=== PATIENT | male | born 1970 | race African-American/Black ===

== ENCOUNTER → 2017-12-10 16:55 | Outpatient (CLI) | payer OTHER, SELFPAY ==
--- NOTE | 2017-12-10 17:17 | RAD_ITS ---
STUDY: X-RAY - RIGHT FOOT CLINICAL: Male, 47 years old. Pain TECHNIQUE: 3 view(s) of the foot. COMPARISON: None. FINDINGS: Mild degenerative changes of the first MTP joint. There is also a moderate degree of talar beaking. No acute fractures. The ankle mortise and the subtalar joints are normal RAD/Foot min 3 Views IMPRESSION: Mild talar beaking and mild degenerative changes of the first MTP joint. No fracture Electronically Signed: Margarito Nagel, at 12:38 EDT Tel , Service support ,
--- NOTE | 2017-12-10 17:25 | RAD_ITS ---
STUDY: X-RAY - RIGHT ANKLE REASON FOR EXAM: Male, 47 years old. Pain. Gout. TECHNIQUE: 3 view(s) of the ankle. COMPARISON: None. FINDINGS: Normal visualized distal tibia and fibula. 8mm bone density beyond the tip of the lateral malleolus is consistent with previous avulsion fracture. Normal tibiotalar articulation and ankle mortise. Normal visualized talus and calcaneus. The visualized subtalar, talonavicular, calcaneocuboid and tarsal articulations are normal. There is no demonstrated acute fracture. The soft tissue structures are unremarkable. RAD/Ankle min 3 Views IMPRESSION: No acute fracture or dislocation. Electronically Signed: Eddie Caba MD at 17:08 EDT , Service support ,
[2017-12-10 17:27] LABS: Absolute Lymphocyte Count 2.22 X10^3/ul (0.83-4.51); Absolute Neutrophil Count 5.7 X10^3/uL (2.0-7.7); Basophil# 0.01 X10^3/uL; Basophil% 0.1 % (0-1); Eosinophil# 0.03 X10^3/uL; Eosinophils% 0.4 % (0-5); Hematocrit 39.5 % (40-54); Hemoglobin 13.7 g/dl (13.0-16.5); Lymphocyte # 2.22 X10^3/ul (4.0); Lymphocyte % 26.4 % (19-41); Mean Corp Hgb Conc 34.7 g/gl (32-36); Mean Corpuscular Hgb 31.1 pg (27.0-32.0); Mean Corpuscular Volume 89.8 fL (80-94); Monocyte# 0.46 X10^3/uL; Monocyte% 5.5 % (0-10); Neutrophil # 5.67 X10^3/uL (2.7-7.7); Neutrophil % 67.4 % (47-70); POSITIVE COUNT NO; POSITIVE DIFFERENTIAL NO; POSITIVE MORPHOLOGY NO; Platelet Count 149 K/mm3 (150-450); RBC Distribution Width CV 12.8 % (11.6-14.6); White Blood Count 8.4 K/mm3 (4.4-11.0)
[2017-12-10 18:07] LABS: Erythrocyte Sedimentation Rate 9 mm/hr (0-15)
[2017-12-10 18:12] LABS: AST(SGOT) 15 U/L (15-37); Alanine Aminotransfer ALT/SGPT 37 U/L (16-61); Albumin, Serum 3.9 g/dL (3.2-5.0); Alkaline Phosphatase 59 U/L (45-117); Anion Gap 7 (5-15); BUN 18 mg/dL (7-18); BUN/Creat Ratio 16.7 RATIO (10-20); CRP 5.34 mg/L (0.0-3.0); Calcium,Total 8.7 mg/dL (8.5-10.1); Chloride 115 mmol/L (98-107); Creatinine, Serum 1.08 mg/dL (0.70-1.30); EST Glomerular Filtration Rate 78 mL/min (>60); Est Glom Filt Rate - Afr Amer 94 mL/min (>60); Globulin 3.8 g/dL (2.2-4.2); Glucose 99 mg/dL (74-106); Potassium 3.9 mmol/L (3.5-5.1); Protein, Total 7.7 g/dL (6.4-8.2); Sodium Level 148 mmol/L (136-145); Uric Acid 9.7 mg/dL (3.5-7.2)
== END ==
PROVIDERS: Family Provider Family Medicine; PCP Family Medicine; Visit Provider Podiatrist
DX: M10.9 Gout, unspecified (principal)
CPT/HCPCS: 36415; 73610; 73630; 80053; 84550; 85025; 85652; 86140

== ENCOUNTER → 2018-05-18 10:12 | Outpatient (CLI) | payer OTHER, SELFPAY ==
--- NOTE | 2018-05-18 10:19 | RAD_ITS ---
STUDY: X-RAY - PELVIS REASON FOR EXAM: Male, 47 years old. Increasing bilateral hip stiffness, history of gout TECHNIQUE: One view of the pelvis was obtained. COMPARISON: 12/12/2015 FINDINGS: There is a non-specific bowel gas pattern. Normal visualized soft tissue structures. Normal bilateral iliac wings, sacroiliac joints and visualized sacrum. Deformity of the left parasymphyseal pubis compatible with an old healed fracture. Normal pubic symphysis. Normal ischial tuberosities. Severe joint space narrowing (circumferential) with subchondral cyst formation identified in the femoral head and acetabulum. Overhanging margins are identified with overall similar appearance since prior study. Severe joint space narrowing which is worse as compared to the prior study particularly along the superior margin. Overhanging margins identified with multiple subchondral cysts of the acetabulum and femoral head, the latter of which are larger since the prior study. Increasing osseous density adjacent to the hip joint project over the lateral margin, that likely represents acetabular osteophyte. RAD/Pelvis 1 or 2 Views IMPRESSION: 1. Severe asymmetric bilateral hip arthrosis. Progressive appearance on the left side since prior study of 2015. Electronically Signed: Michael Cantu MD at 7:21 EST , Service support ,
[2018-05-18 12:19] LABS: Erythrocyte Sedimentation Rate 3 mm/hr (0-15)
[2018-05-18 12:28] LABS: Absolute Lymphocyte Count 2.28 X10^3/ul (0.83-4.51); Absolute Neutrophil Count 4.1 X10^3/uL (2.0-7.7); Basophil# 0.02 X10^3/uL; Basophil% 0.3 % (0-1); Eosinophil# 0.05 X10^3/uL; Eosinophils% 0.7 % (0-5); Hematocrit 41.8 % (40-54); Hemoglobin 14.3 g/dl (13.0-16.5); Lymphocyte # 2.28 X10^3/ul (4.0); Lymphocyte % 32.9 % (19-41); Mean Corp Hgb Conc 34.2 g/gl (32-36); Mean Corpuscular Volume 90.5 fL (80-94); Monocyte% 5.8 % (0-10); Neutrophil # 4.14 X10^3/uL (2.7-7.7); Neutrophil % 59.9 % (47-70); Platelet Count 128 K/mm3 (150-450); RBC Distribution Width CV 12.7 % (11.6-14.6); RBC Distribution Width SD 41.5 fl (35.1-43.9); Red Blood Count 4.62 M/mm3 (4.6-6.2); White Blood Count 6.9 K/mm3 (4.4-11.0)
[2018-05-18 12:35] LABS: ALB/GLOB Ratio 0.9 RATIO (0.9-2.4); AST(SGOT) 20 U/L (15-37); Alanine Aminotransfer ALT/SGPT 39 U/L (16-61); Albumin, Serum 3.7 g/dL (3.2-5.0); Alkaline Phosphatase 60 U/L (45-117); Anion Gap 8 (5-15); BUN 17 mg/dL (7-18); BUN/Creat Ratio 15.9 RATIO (10-20); CRP 5.79 mg/L (0.0-3.0); Calcium,Total 8.6 mg/dL (8.5-10.1); Chloride 108 mmol/L (98-107); Creatinine, Serum 1.07 mg/dL (0.70-1.30); EST Glomerular Filtration Rate 78 mL/min (>60); Est Glom Filt Rate - Afr Amer 95 mL/min (>60); Globulin 3.9 g/dL (2.2-4.2); Glucose 99 mg/dL (74-106); Potassium 4.3 mmol/L (3.5-5.1); Protein, Total 7.6 g/dL (6.4-8.2); Rheumatoid Factor < 10.0 IU/mL (<15); Sodium Level 142 mmol/L (136-145)
[2018-05-18 12:37] LABS: POSITIVE COUNT NO; POSITIVE DIFFERENTIAL NO; POSITIVE MORPHOLOGY NO
[2018-05-20 13:15] LABS: ANTINUCLEAR ANTIBODIES DIRECT Negative (Negative)
[2018-05-24 16:54] LABS: CCP IgG Antibodies 9 units (0-19); HEPATITIS B SURFACE AG Negative (Negative); HLA B27 Negative (.); Hep B Surface Antibodies Non Reactive (.); Hep C Antibodies <0.1 s/co ratio (0.0-0.9)
== END ==
PROVIDERS: Family Provider Family Medicine; PCP Family Medicine; Referring Provider Internal Medicine Rheumatology; Visit Provider Internal Medicine Rheumatology
DX: M06.4 Inflammatory polyarthropathy (principal); M16.0 Bilateral primary osteoarthritis of hip
CPT/HCPCS: 36415; 72170; 80053; 81374; 85025; 85652; 86038; 86140; 86200; 86431; 86706; 86803; 87340

== ENCOUNTER → 2018-08-10 15:46 | Outpatient (CLI) | payer OTHER, SELFPAY ==
[2016-03-30 15:45] VITALS: BMI 30.7
[2018-08-10 17:40] LABS: Absolute Lymphocyte Count 3.14 X10^3/ul (0.83-4.51); Basophil# 0.02 X10^3/uL; Basophil% 0.2 % (0-1); Eosinophil# 0.03 X10^3/uL; Eosinophils% 0.3 % (0-5); Hematocrit 41.5 % (40-54); Hemoglobin 14.1 g/dl (13.0-16.5); Lymphocyte # 3.14 X10^3/ul (4.0); Lymphocyte % 36.1 % (19-41); Mean Corpuscular Hgb 30.7 pg (27.0-32.0); Mean Corpuscular Volume 90.2 fL (80-94); Mean Platelet Vol. 11.6 fl (6.2-12.0); Monocyte# 0.47 X10^3/uL; Monocyte% 5.4 % (0-10); Neutrophil % 57.5 % (47-70); Platelet Count 134 K/mm3 (150-450); RBC Distribution Width CV 13.2 % (11.6-14.6); RBC Distribution Width SD 42.9 fl (35.1-43.9); White Blood Count 8.7 K/mm3 (4.4-11.0)
[2018-08-10 17:43] LABS: POSITIVE COUNT NO; POSITIVE DIFFERENTIAL NO; POSITIVE MORPHOLOGY NO
[2018-08-10 17:53] LABS: ALB/GLOB Ratio 1.1 RATIO (0.9-2.4); AST(SGOT) 21 U/L (15-37); Alanine Aminotransfer ALT/SGPT 32 U/L (16-61); Alkaline Phosphatase 67 U/L (45-117); Anion Gap 10 (5-15); BUN 10 mg/dL (7-18); BUN/Creat Ratio 10.1 RATIO (10-20); Calcium,Total 8.4 mg/dL (8.5-10.1); Chloride 107 mmol/L (98-107); Creatinine, Serum 0.99 mg/dL (0.70-1.30); EST Glomerular Filtration Rate 86 mL/min (>60); Est Glom Filt Rate - Afr Amer 104 mL/min (>60); Globulin 3.8 g/dL (2.2-4.2); Glucose 95 mg/dL (74-106); Potassium 3.6 mmol/L (3.5-5.1); Protein, Total 7.8 g/dL (6.4-8.2); Sodium Level 143 mmol/L (136-145)
== END ==
PROVIDERS: Family Provider Family Medicine; PCP Family Medicine; Referring Provider Internal Medicine Rheumatology; Visit Provider Internal Medicine Rheumatology
DX: M06.4 Inflammatory polyarthropathy (principal)
CPT/HCPCS: 36415; 80053; 85025

== ENCOUNTER → 2018-10-07 15:42 | Outpatient (CLI) | payer OTHER, SELFPAY ==
[2016-03-30 15:45] VITALS: BMI 30.7
[2018-10-07 17:34] LABS: Absolute Lymphocyte Count 2.73 X10^3/ul (0.83-4.51); Absolute Neutrophil Count 5.9 X10^3/uL (2.0-7.7); Basophil# 0.01 X10^3/uL; Basophil% 0.1 % (0-1); Eosinophil# 0.05 X10^3/uL; Eosinophils% 0.5 % (0-5); Hemoglobin 13.3 g/dl (13.0-16.5); Lymphocyte # 2.73 X10^3/ul (4.0); Lymphocyte % 29.8 % (19-41); Mean Corp Hgb Conc 34.1 g/gl (32-36); Mean Corpuscular Hgb 30.5 pg (27.0-32.0); Mean Corpuscular Volume 89.4 fL (80-94); Mean Platelet Vol. 12.2 fl (6.2-12.0); Monocyte# 0.44 X10^3/uL; Monocyte% 4.8 % (0-10); Neutrophil # 5.91 X10^3/uL (2.7-7.7); Neutrophil % 64.5 % (47-70); Platelet Count 147 K/mm3 (150-450); RBC Distribution Width CV 13.7 % (11.6-14.6); RBC Distribution Width SD 43.7 fl (35.1-43.9); Red Blood Count 4.36 M/mm3 (4.6-6.2); White Blood Count 9.2 K/mm3 (4.4-11.0)
[2018-10-07 17:35] LABS: POSITIVE COUNT NO; POSITIVE DIFFERENTIAL NO; POSITIVE MORPHOLOGY NO
[2018-10-07 17:47] LABS: ALB/GLOB Ratio 1.1 RATIO (0.9-2.4); AST(SGOT) 21 U/L (15-37); Alanine Aminotransfer ALT/SGPT 34 U/L (16-61); Albumin, Serum 3.9 g/dL (3.2-5.0); Alkaline Phosphatase 61 U/L (45-117); Anion Gap 6 (5-15); BUN 14 mg/dL (7-18); BUN/Creat Ratio 13.9 RATIO (10-20); Calcium,Total 8.6 mg/dL (8.5-10.1); Chloride 111 mmol/L (98-107); Creatinine, Serum 1.01 mg/dL (0.70-1.30); EST Glomerular Filtration Rate 83 mL/min (>60); Est Glom Filt Rate - Afr Amer 101 mL/min (>60); Globulin 3.6 g/dL (2.2-4.2); Glucose 91 mg/dL (74-106); Potassium 3.9 mmol/L (3.5-5.1); Protein, Total 7.5 g/dL (6.4-8.2); Sodium Level 144 mmol/L (136-145)
== END ==
PROVIDERS: Family Provider Family Medicine; PCP Family Medicine; Referring Provider Internal Medicine Rheumatology; Visit Provider Internal Medicine Rheumatology
DX: M06.4 Inflammatory polyarthropathy (principal); M16.0 Bilateral primary osteoarthritis of hip; Z79.899 Other long term (current) drug therapy
CPT/HCPCS: 36415; 80053; 85025

== ENCOUNTER → 2018-11-23 14:00 | Outpatient (CLI) | payer OTHER, SELFPAY ==
[2016-03-30 15:45] VITALS: BMI 30.7
[2018-11-23 16:03] LABS: Absolute Neutrophil Count 6.5 X10^3/uL (2.0-7.7); Basophil# 0.01 X10^3/uL; Basophil% 0.1 % (0-1); Eosinophil# 0.05 X10^3/uL; Eosinophils% 0.5 % (0-5); Hematocrit 41.1 % (40-54); Hemoglobin 14.1 g/dl (13.0-16.5); Lymphocyte % 25.2 % (19-41); Mean Corp Hgb Conc 34.3 g/gl (32-36); Mean Corpuscular Hgb 30.7 pg (27.0-32.0); Mean Corpuscular Volume 89.3 fL (80-94); Mean Platelet Vol. 12.3 fl (6.2-12.0); Monocyte% 5.3 % (0-10); Neutrophil # 6.53 X10^3/uL (2.7-7.7); Neutrophil % 68.6 % (47-70); Platelet Count 112 K/mm3 (150-450); White Blood Count 9.5 K/mm3 (4.4-11.0)
[2018-11-23 16:07] LABS: POSITIVE COUNT NO; POSITIVE DIFFERENTIAL NO; POSITIVE MORPHOLOGY NO
[2018-11-23 16:18] LABS: ALB/GLOB Ratio 0.9 RATIO (0.9-2.4); AST(SGOT) 19 U/L (15-37); Alanine Aminotransfer ALT/SGPT 32 U/L (16-61); Albumin, Serum 3.6 g/dL (3.2-5.0); Alkaline Phosphatase 57 U/L (45-117); Anion Gap 9 (5-15); BUN 16 mg/dL (7-18); BUN/Creat Ratio 15.5 RATIO (10-20); Calcium,Total 9.2 mg/dL (8.5-10.1); Chloride 110 mmol/L (98-107); Creatinine, Serum 1.03 mg/dL (0.70-1.30); EST Glomerular Filtration Rate 82 mL/min (>60); Est Glom Filt Rate - Afr Amer 99 mL/min (>60); Globulin 3.9 g/dL (2.2-4.2); Glucose 95 mg/dL (74-106); Potassium 3.6 mmol/L (3.5-5.1); Protein, Total 7.5 g/dL (6.4-8.2); Sodium Level 145 mmol/L (136-145)
== END ==
PROVIDERS: Family Provider Family Medicine; PCP Family Medicine; Referring Provider Internal Medicine Rheumatology; Visit Provider Internal Medicine Rheumatology
DX: M06.4 Inflammatory polyarthropathy (principal); M16.0 Bilateral primary osteoarthritis of hip; Z79.899 Other long term (current) drug therapy
CPT/HCPCS: 36415; 80053; 85025

== ENCOUNTER → 2019-08-16 09:48 | Outpatient (CLI) | payer MEDICAID, SELFPAY ==
[2019-08-16 09:44] VITALS: BMI 30.7
--- NOTE | 2019-08-16 09:49 | RAD_ITS ---
HISTORY: SEVERE BILAT HIP PAIN ADDITIONAL HISTORY: None provided. TECHNIQUE: AP pelvis. AP and lateral views of the right hip. AP and lateral views of the left hip. Number of images including paperwork: 5 COMPARISON: 05/18/2018 FINDINGS: BONES: No acute fracture. JOINTS: No subluxation. Severe degenerative changes of the hips with joint space narrowing, subchondral sclerosis, subchondral cystic changes and osteophyte formation, minimally changed compared to previous. Degenerative changes of the visualized spine and symphysis pubis. SOFT TISSUES: No distinct foreign body. RAD/Hips B/L min 2 views w/ Pelvis IMPRESSION: No acute osseous abnormality. Severe degenerative changes of the hips. at 0540 Reported and signed by: Nadia Najera MD Electronically Signed: Nadia Najera MD at 5:39 EST Tel , Service support ,
== END ==
PROVIDERS: PCP Family Medicine; Referring Provider Orthopaedic Surgery; Visit Provider Orthopaedic Surgery
DX: M16.0 Bilateral primary osteoarthritis of hip (principal)
CPT/HCPCS: 73521

== ENCOUNTER → 2019-08-23 13:54 | Outpatient (CLI) | payer MEDICAID, SELFPAY ==
[2019-08-16 09:44] VITALS: BMI 30.7
--- NOTE | 2019-08-23 13:55 | CT_ITS ---
STUDY: CT BILATERAL HIPS REASON FOR EXAM: Left hip pain, surgical planning. TECHNIQUE: Transaxial CT imaging of the pelvis/hips was performed. Sagittal and coronal images were reconstructed. Individualized dose optimization techniques were used for this CT. COMPARISON: None. FINDINGS: There is severe joint space narrowing, marginal osteophytes and subchondral cysts of the femoral heads and acetabula bilaterally (coronal reconstructions 64-81). There is chronic healed fracture involving the anterior aspect of the left parasymphyseal bone (coronal reconstructions 57-61). Normal iliac wings, sacroiliac joints and sacrum. There is mild vascular calcification. CT/Extremity Lower without Contra IMPRESSION: Advanced bilateral hip arthrosis. Electronically Signed: Jean Pierre Montoya MD at 15:30 EST Tel , Service support ,
== END ==
PROVIDERS: PCP Nurse Practitioner Primary Care; Referring Provider Orthopaedic Surgery; Visit Provider Orthopaedic Surgery
DX: M16.0 Bilateral primary osteoarthritis of hip (principal)
CPT/HCPCS: 73700

== ENCOUNTER → 2019-08-23 15:00 | Outpatient (CLI) | payer MEDICAID, SELFPAY ==
[2019-08-16 09:44] VITALS: BMI 30.7
[2019-08-23 15:03] VITALS: BP 144/89; PULSE 61; RESP 17; TEMP 36.6; O2SAT 96; BMI 31.6
--- NOTE | 2019-08-23 15:24 | SDCEKG_ITS ---
Test Reason : Blood Pressure : / mmHG Vent. Rate : 051 BPM Atrial Rate : 051 BPM P-R Int : 154 ms QRS Dur : 108 ms QT Int : 446 ms P-R-T Axes : 023 -29 -19 degrees QTc Int : 411 ms Sinus bradycardia Nonspecific T wave abnormality Abnormal ECG Confirmed by JENAE MALDONADO, SUZAN ([id number]), avid editor CARL SORENSON ([id number]) on 08/28/2019 8:38:08 AM Referred By: Toni Quinn Confirmed By:JENNIFER EMANUEL MD
[2019-08-23 15:54] LABS: Hematocrit 38.9 % (40-54); Hemoglobin 13.3 g/dL (13.0-16.5); Mean Corp Hgb Conc 34.2 g/dL (32-36); Mean Corpuscular Hgb 30.7 pg (27.0-32.0); Mean Corpuscular Volume 89.8 fL (80-94); Mean Platelet Vol. 10.8 fl (6.2-12.0); Platelet Count 266 K/mm3 (150-450); RBC Distribution Width CV 12.5 % (11.6-14.6); RBC Distribution Width SD 41.6 fl (35.1-43.9); Red Blood Count 4.33 M/mm3 (4.6-6.2); White Blood Count 10.3 K/mm3 (4.4-11.0)
== END ==
PROVIDERS: Anesthesiology; PCP Nurse Practitioner Primary Care; Referring Provider Orthopaedic Surgery; Visit Provider Orthopaedic Surgery
DX: Z01.818 Encounter for other preprocedural examination (principal)
CPT/HCPCS: 85027; 87081; 93005

== ENCOUNTER 2020-05-14 06:37 | Day surgery (SDC) | payer MEDICAID, SELFPAY ==
[2020-04-22 08:15] VITALS: BMI 34.8
[2020-05-01 12:44] LABS: Absolute Lymphocyte Count 2.59 X10^3/uL (0.83-4.51); Absolute Neutrophil Count 4.6 X10^3/uL (2.0-7.7); Basophil# 0.04 X10^3/uL; Basophil% 0.5 % (0-1); Eosinophil# 0.03 X10^3/uL; Eosinophils% 0.4 % (0-5); Hematocrit 42.3 % (40-54); Hemoglobin 14.3 g/dL (13.0-16.5); Lymphocyte # 2.59 X10^3/ul (4.0); Lymphocyte % 33.2 % (19-41); Mean Corp Hgb Conc 33.8 g/dL (32-36); Mean Corpuscular Hgb 31.3 pg (27.0-32.0); Mean Corpuscular Volume 92.6 fL (80-94); Mean Platelet Vol. 11.7 fl (6.2-12.0); Monocyte# 0.45 X10^3/uL; Monocyte% 5.8 % (0-10); NRBC Flagged by Analyzer 0 % (0-5); Neutrophil # 4.63 X10^3/uL (2.7-7.7); Neutrophil % 59.5 % (47-70); Platelet Count 158 K/mm3 (150-450); RBC Distribution Width SD 43.8 fl (35.1-43.9); Red Blood Count 4.57 M/mm3 (4.6-6.2); White Blood Count 7.8 K/mm3 (4.4-11.0)
[2020-05-01 13:04] LABS: Anion Gap 6 (5-15); BUN 15 mg/dL (7-18); BUN/Creat Ratio 12.7 RATIO (10-20); Chloride 109 mmol/L (98-107); Creatinine, Serum 1.18 mg/dL (0.70-1.30); EST Glomerular Filtration Rate 69 mL/min (>60); Est Glom Filt Rate - Afr Amer 84 mL/min (>60); Glucose 93 mg/dL (74-106); Potassium 4.2 mmol/L (3.5-5.1); Sodium Level 142 mmol/L (136-145)
[2020-05-01 13:18] LABS: Magnesium 2.1 mg/dL (1.6-2.6)
[2020-05-01 13:30] LABS: Partial Thromboplast Time 26.6 Seconds (24.1-36.2)
[2020-05-14] VITALS (8 sets, daily range): BP systolic 126–159; BP diastolic 79–110; PULSE 62–81; RESP 16–18; TEMP 36.3–37.1; O2SAT 94–100; BMI 33.6
--- NOTE | 2020-05-14 05:40 | HP_ITS ---
Intake Vital Signs 04/22/20 Height 5 ft 6 in 04/22/20 Weight: 216 lb Intake Visit Reasons: LEFT HIP Is patient in pain?: Yes Allergies No Known Allergies Allergy (Verified 04/22/20 08:16) Medications Lisinopril 20 mg PO DAILY 08/23/19 [History Confirmed 04/22/20] allopurinol 100 mg tablet 100 mg PO DAILY 09/11/19 [History Confirmed 04/22/20] colchicine 0.6 mg capsule cap PO 04/22/20 [History Confirmed 04/22/20] PFSH Social History (Updated 04/22/20 @ 09:[address] Toni Quinn DO) Smoking Status: Current every day smoker HPI LEFT HIP: Surgical H&P: Yes Details: Parts of this documentation were recorded by a scribe, this documentation accurately reflects the service provided and the decisions made by me, Dr. Toni Quinn DO 04/22/20 0803. RAMILA SNYDER is a 49 year old M here today for continued left hip pain. Patient states that his pain is worsening. He has increased pain with ambulation. Patient has to use a cane to ambulate. He has increased pain with getting up and sitting in a chair. Patient notes that he has numbness into his thighs after prolonged sitting. Patient has decreased hip range of motion. Patient notes that his gout is under control. He just had blood work which showed his lab work is decreasing. He continues to take his gout meds daily. Patient takes aleve for his back every few days. ROS [facility] Reports joint pain, Reports limited joint movement, Reports stiffness Skin/Breast Reports system reviewed and no additional complaints, except as docu Neuro Yes system reviewed and no additional complaints, except as docu Ortho Exam General General: Yes no acute distress Neurologic: Yes alert, Yes oriented x3 Psychologic: Yes reasonable and appropriate Right Hip Skin: Yes CDI, No Ecchymosis, No soft tissue swelling, No Erythema Special Tests: Yes pain with log roll, Yes RROM flexion pain HIP: 4/5 hip flexion, 5/5 knee flexion, 5/5 ankle PF/DF Very limited hip range of motion bilaterally Left Hip Skin/Wound: Yes CDI, No Ecchymosis, No soft tissue swelling, No Erythema Hip: Absent eccymosis, soft tissue swelling or erythema HIP: 4/5 hip flexion, 5/5 hip flexion, 5.5 ankle PF and DF Supplemental Info 08/16/2019 x-ray bilateral hips markedly advanced arthrosis bilaterally consistent with possibility of prior avascular necrosis with deformity to femoral heads large bone spurs of acetabulum Assessment & Plan Problems 1. Primary osteoarthritis of right hip M16.11 2. 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 Explained his numbness in his quad if from his lumbar spine and he wont have relief with the numbness from a total hip replacement. Spoke with him about a total hip replacement. He might need some augmentation due to bony loss and cysts shown on the CT scan. Patient wanted to proceed with his right total hip replacement. He will need to wait approximately 3 months before he can have his left ANGEL completed. Spoke with him about hip precautions following surgery. Reviewed the pre-operative plans with the patient. Risks and benefits of the procedure were fully explained, including but not limited to infection, neurovascular injury, continued pain, stiffness, need for further surgery, re-injury, DVT, PE, general risks of anesthesia, and loss of limb or life. The patient understands all the risks and does wish to proceed with written consent. Follow up for his 2 week post op appt or sooner if pain, swelling, numbness or associated symptoms, or concerns develop. All questions answered. Patient in agreement of plan. 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 delaying the surgery/procedure. It is not possible to know either the risk of delaying the surgery or procedure or chance of getting an infection with perfect accuracy, but a joint decision was made between the patient and the surgeon/proceduralist ?to proceed at this time with the scheduled surgery/procedure as indicated on the consent form.
[2020-05-14] MEDS: Lactated Ringers 1,000 ML 125 ML IV (07:00)
--- NOTE | 2020-05-14 07:17 | HP.PCM_ITS ---
History and Physical Date of Admission: 05/14/20 Intake Vital Signs 04/22/20 Height 5 ft 6 in 04/22/20 Weight: 216 lb Intake Visit Reasons: LEFT HIP Is patient in pain?: Yes Allergies No Known Allergies Allergy (Verified 04/22/20 08:16) Medications Lisinopril 20 mg PO DAILY 08/23/19 [History Confirmed 04/22/20] allopurinol 100 mg tablet 100 mg PO DAILY 09/11/19 [History Confirmed 04/22/20] colchicine 0.6 mg capsule cap PO 04/22/20 [History Confirmed 04/22/20] [facility] Social History (Updated 04/22/20 @ 09:[address] Toni Quinn DO) Smoking Status: Current every day smoker HPI LEFT HIP: Surgical H&P: Yes Details: Parts of this documentation were recorded by a scribe, this documentation accurately reflects the service provided and the decisions made by me, Dr. Toni Quinn DO 04/22/20 0803. RAMILA SNYDER is a 49 year old M here today for continued left hip pain. Patient states that his pain is worsening. He has increased pain with ambulation. Patient has to use a cane to ambulate. He has increased pain with getting up and sitting in a chair. Patient notes that he has numbness into his thighs after prolonged sitting. Patient has decreased hip range of motion. Patient notes that his gout is under control. He just had blood work which showed his lab work is decreasing. He continues to take his gout meds daily. Patient takes aleve for his back every few days. ROS [facility] Reports joint pain, Reports limited joint movement, Reports stiffness Skin/Breast Reports system reviewed and no additional complaints, except as docu Neuro Yes system reviewed and no additional complaints, except as docu Ortho Exam General General: Yes no acute distress Neurologic: Yes alert, Yes oriented x3 Psychologic: Yes reasonable and appropriate Right Hip Skin: Yes CDI, No Ecchymosis, No soft tissue swelling, No Erythema Special Tests: Yes pain with log roll, Yes RROM flexion pain HIP: 4/5 hip flexion, 5/5 knee flexion, 5/5 ankle PF/DF Very limited hip range of motion bilaterally Left Hip Skin/Wound: Yes CDI, No Ecchymosis, No soft tissue swelling, No Erythema Hip: Absent eccymosis, soft tissue swelling or erythema HIP: 4/5 hip flexion, 5/5 hip flexion, 5.5 ankle PF and DF Supplemental Info 08/16/2019 x-ray bilateral hips markedly advanced arthrosis bilaterally consistent with possibility of prior avascular necrosis with deformity to femoral heads large bone spurs of acetabulum Assessment & Plan Problems 1. Primary osteoarthritis of right hip M16.11 2. 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 Explained his numbness in his quad if from his lumbar spine and he wont have relief with the numbness from a total hip replacement. Spoke with him about a total hip replacement. He might need some augmentation due to bony loss and cysts shown on the CT scan. Patient wanted to proceed with his right total hip replacement. He will need to wait approximately 3 months before he can have his left ANGEL completed. Spoke with him about hip precautions following surgery. Reviewed the pre-operative plans with the patient. Risks and benefits of the procedure were fully explained, including but not limited to infection, neurovascular injury, continued pain, stiffness, need for further surgery, re-injury, DVT, PE, general risks of anesthesia, and loss of limb or life. The patient understands all the risks and does wish to proceed with written consent. Follow up for his 2 week post op appt or sooner if pain, swelling, numbness or associated symptoms, or concerns develop. All questions answered. Patient in agreement of plan. 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 delaying the surgery/procedure. It is not possible to know either the risk of delaying the surgery or procedure or chance of getting an infection with perfect accuracy, but a joint decision was made between the patient and the surgeon/proceduralist ?to proceed at this time with the scheduled surge ry/procedure as indicated on the consent form. I have re-examined the patient. There are no clinical changes since date of exam
[2020-05-14 07:40] LABS: Bedside Glucose 102 mg/dL (70-110)
[2020-05-14] MEDS: Acetaminophen 500 MG Tablet 1000 MG PO (07:58)
[2020-05-14] MEDS: Celecoxib 200 MG Capsule 400 MG PO (07:58)
[2020-05-14] MEDS: Gabapentin 600 MG Tablet PO (07:59)
[2020-05-14] MEDS: Scopolamine 1mg/72hr Patch 1 PATCH TRANSDERM. (07:59)
[2020-05-14] MEDS: Lactated Ringers 1,000 ML 999 ML IV (08:00)
[2020-05-14] MEDS: Cefazolin 2 GM in 0.9% Normal Saline 100 ML IV (10:36)
[2020-05-14] MEDS: dexAMETHasone 10 MG/ML Vial IV (10:52)
--- NOTE | 2020-05-14 13:05 | RAD_ITS ---
STUDY: X-RAY - PELVIS AND RIGHT HIP REASON FOR EXAM: Male, 49 years old. Postop right hip. TECHNIQUE: 2 views of the pelvis and hip. COMPARISON: Bilateral hips, 08/16/2019. FINDINGS: There is a non-specific bowel gas pattern. Normal visualized soft tissue structures. Normal bilateral iliac wings, sacroiliac joints and visualized sacrum. Normal bilateral superior and inferior pubic rami. Normal pubic symphysis. Normal bilateral ischial tuberosities. Is continued marked degenerative changes of the left hip. There is a right total hip arthroplasty. Prosthetic components are intact and articulate normally with each other. There is no fracture or loosening from the underlying bone. There is air in the surrounding soft tissues with lateral skin clips. RAD/Hip Min 2 Views (Portable) IMPRESSION: Status post right total hip arthroplasty. The remainder of the findings are stable when compared to 08/16/2019. Electronically Signed: Cristian Salazar DO at 16:50 EST Tel [phone], Service support ,
--- NOTE | 2020-05-14 13:13 | PCM.DC.ORTHO ---
Discharge Diet: No Restrictions, - - Low purine gout diet avoid red meats if questions about this please call the office for follow-up information Discharge Activity: Return to Normal Activity Keep extremity elevated above heart level: Operative Extremity Call your doctor if you observe: Shortness of breath, Chest pain Additional Instructions: Do not shower 72hrs. Begin daily showering warm water antibacterial soap postop day #3( 72hrs Post-operatively) and then daily. Leave the dressing on for 72 hours postoperatively then may remove prior to first shower and change dressing daily after this until no drainage for 2 consecutive days then may leave open to air. Follow hip precautions that were reviewed in hospital. Wear compression stockings, may remove at night. Start physical therapy as directed in hospital. Follow prescriptions instructions do not take any other pain medication or differ dosing without consulting your physician. Do not take oral NSAIDs until blood thinner has been completed , then may begin the day after completion if needed . Call Dr. Quinn's office with any concerns. Allergies/Adverse Reactions: Allergies No Known Allergies Allergy (Verified 05/14/20 07:11) Medications to take at Discharge allopurinol 100 mg tablet 300 mg PO BID 09/11/19 mupirocin 2 % topical ointment 1 applic TOPICAL BID #22 g 05/06/20 Acetaminophen [Tylenol Extra Strength] 1,000 mg PO Q6H PRN #100 tab 05/14/20 Apixaban [Eliquis] 2.5 mg PO BID #42 tab 05/14/20 Cephalexin [Keflex] 1,000 mg PO Q8 #4 cap 05/14/20 Diltiazem HCl [Cartia Xt] 120 mg PO 05/14/20 Ondansetron HCl [Zofran] 4 mg PO Q6H PRN PRN 5 Days #20 tab 05/14/20 Oxycodone [Oxyir] 5 mg PO Q4H PRN PRN #60 tablet 05/14/20 The following prescriptions were given: Apixaban [Eliquis] 2.5 mg PO BID #42 tab Transmission Status: Pending to [facility] Cephalexin [Keflex] 1,000 mg PO Q8 #4 cap Transmission Status: Pending to [facility] Oxycodone [Oxyir] 5 mg PO Q4H PRN PRN #60 tablet PRN Reason: Pain Score 6-10 Transmission Status: Sent to [facility] Acetaminophen [Tylenol Extra Strength] 1,000 mg PO Q6H PRN #100 tab Transmission Status: Pending to [facility] Ondansetron HCl [Zofran] 4 mg PO Q6H PRN PRN 5 Days #20 tab PRN Reason: Nausea Transmission Status: Pending to [facility] Primary Care Physician: Yunior Higgins BAIT MAN, BA[employer] MAN-C [Primary Care Provider] - Test Results: Test results from this visit will be discussed in further detail at your follow-up appointment, if applicable. Please Follow Up With: Toni Quinn DO - 2 weeks
--- NOTE | 2020-05-14 13:21 | PCM.OPRPT ---
Report of Operation Date of Procedure: 05/14/20 Description of Surgical Findings:: Preoperative diagnosis: Right hip DJD Postoperative diagnosis: Same Procedure: CT-guided Makoplasty assisted right total hip arthroplasty Implants: [place] Accolade II stem size 2 [127] degree neck angle [-2.5 neck length 56 mm Trident II acetabular shell with 20 mm cancellous screw [36]mm [ceramic] head Anesthesia: [Spinal] EBL: 200 cc Complications: None Condition: Stable to PACU Indication for procedure: This is a 49-year-old male with advanced bilateral hip arthrosis and gout who has had long-standing arthrosis of the hip who has failed conservative treatment and wished to undergo total hip arthroplasty. We did discuss operative versus nonoperative intervention including risks of bleeding, infection , nerve artery tissue damage, need for further surgery, fracture, leg length discrepancy dislocation blood clot and need for postoperative physical therapy and postoperative expectations. An informed consent was signed. Procedure: Patient was met in the preoperative holding area once again the operative extremity was identified by both patient and physician and was marked. Patient was met by anesthesia [spinal anesthesia was placed]. patient was then positioned in the lateral decubitus position on a well-padded pegboard with an axillary roll. All bony prominences were checked and padded. The patient was prepped and draped in the usual sterile fashion. A timeout was called to ensure the proper patient procedure and extremity were being contemplated. Anatomic landmarks were palpated and marked for a standard posterior lateral approach. Prior to this the ASIS was palpated and 3 fingerbreadths proximal to this 3 pins were placed at a 45 degree angle into the iliac crest with good purchase, stab incisions were made with a 15 blade into the skin prior to placement. The Makoplasty array was then secured. A 10 blade scalpel was used to make a posterior incision through the skin and subcutaneous tissue. retractors were used and electrocautery was used to maintain meticulous hemostasis and dissect full-thickness flaps until the gluteal fascia was reached. The gluteal fascia was incised in line with the gluteal fibers. The bursal tissue was then freed from the underside and a Charnley retractor was placed. The femoral trochanteric checkpoint was placed and leg length was assessed using the trochanteric checkpoint and an EKG lead that was placed on the knee prior to prepping the leg .the fat pad was then elevated off of the external rotators with electrocautery and the external rotators were dissected off of the greater trochanter including the piriformis and were tagged with #1 Ethibond for later repair. The joint capsule opened with posterior trapdoor technique. The hip was surgically dislocated. The measurement on the preoperative CT from the top of the lesser trochanter to the femoral neck cut was marked Hohmann was placed around the lesser trochanter. A neck cutting guide was used to nakul the neck with a Bovie and an oscillating saw was used complete the femoral neck cut. The femoral head was then removed and sized. We then turned our attention to the acetabulum. A Bovie was used to make a perforation in the anterior joint capsule and a Purdy retractor was placed this was repeated in the 6 o'clock position and a wide zechariah was placed there. With a long handled knife the labral and pulvinar tissue were removed. We then registered the acetabulum with the pointing array and confirmed our landmarks. Once the socket was thoroughly prepared and labral tissue pulmonary was removed we single reamed with the robotic arm. There was acetabular cyst that were filled with bone marrow from the femoral head we then used the robotic arm to position the acetabular implant and impacted it into place under robotic guidance. [We then proceeded to place a posterior superior screw by drilling first measuring and inserting the screw]. We then inserted a trial liner. And turned our attention back to the femur at this point a femoral elevator was used. As well as a pointed wide Hohmann around the lesser trochanter and a Hohmann to help retract the gluteus medius. A box chisel was used to remove excess lateral neck followed by a canal finder and a lateralizing reamer. This was followed by sequential broaches. Attention was made of the version within the canal based on preoperative templating. Once the final broach was seated we then trialed reduced the hip it was determined that a [127] degree neck angle with a -2.5 neck length was the appropriate size. We then checked stability with shuck testing as well as flexion and internal rotation. then proceeded with hip extension and checked leg lengths at the knees and heels as well as with the trochanteric checkpoint and knee EKG lead. At this point trials were removed. A liner was inserted to the cup. The femoral stem was inserted. We re-trialed and then proceeded to impact the femoral head onto the Aniket taper. We then surgically reduce the hip check stability again and leg lengths and were satisfied. Betadine rinse was allowed to sit for 5 minutes while everyone changed their gloves. Thorough irrigation was performed. Followed by closure of the external rotators with #2 FiberWire followed by closure of gluteal fascia with #1 Ethibond. 0 Vicryl fat stitches and 2-0 Vicryl subcutaneous stitches and clarence in the skin. A pulls were placed in the pin sites over the iliac crest with Xeroform 4 x 4 and OpSite. dressing was applied to incisional area with Mepilex Ag and an abduction pillow was placed. Patient tolerated the procedure well there was no intraoperative complications all counts were correct and the patient was brought back to the PACU in stable condition
== END 2020-05-14 18:15 | disposition home or self-care (01) ==
LOC: SDC 06:38 → AC 06:39
PROVIDERS: Anesthesiology; PCP Nurse Practitioner Primary Care; Referring Provider Orthopaedic Surgery; Visit Provider Orthopaedic Surgery
PROC: 8E0Y0CZ Robotic Assisted Procedure of Lower Extremity, Open Approach (ICD-10-PCS; CPT 27130; principal; 2020-05-14 09:30)
DX: M16.11 Unilateral primary osteoarthritis, right hip (principal); M06.9 Rheumatoid arthritis, unspecified; M1A.09X0 Idiopathic chronic gout, multiple sites, without tophus (tophi); F17.200 Nicotine dependence, unspecified, uncomplicated; Z20.828 Contact with and (suspected) exposure to other viral communicable diseases
CPT/HCPCS: 0055T; 01214; 27130; 36415; 73502; 80048; 82962; 83735; 85025; 85610; 85730; 86850; 86900; 86901; 87077; 87081; 87426; 97162; C1713; C1776; C9803; J7120; A4216; J2405

== ENCOUNTER → 2020-08-02 12:49 | Outpatient (CLI) | payer MEDICAID, SELFPAY ==
[2020-07-23 06:25] VITALS: BMI 34.4
--- NOTE | 2020-08-02 13:00 | CT_ITS ---
STUDY: CT LEFT LOWER EXTREMITY REASON FOR EXAM: Left hip osteoarthritis, presurgical planning. TECHNIQUE: Transaxial CT imaging of the lower extremity was performed. Sagittal and coronal images were reconstructed. Individualized dose optimization techniques were used for this CT. COMPARISON: None. FINDINGS: Hip: There is advanced left hip arthrosis with marginal osteophytes, joint space loss, and subchondral cystic change (coronal reconstructions 78-97). There is a right hip arthroplasty. There is chronic healed fracture deformity of the anterior aspect of the left parasymphyseal bone (coronal reconstructions 73-75). There are degenerative changes of the pubic symphysis. Unremarkable iliac wings, sacroiliac joints and sacrum. Knee: There are small marginal osteophytes of the medial and lateral femorotibial compartments without joint space narrowing. There are marginal osteophytes of the patellofemoral articulation with mild joint space narrowing at the lateral aspect (axial image 543). CT/Extremity Lower without Contra IMPRESSION: Advanced left hip arthrosis. Electronically Signed: Jean Pierre Montoya MD at 15:30 EST Tel , Service support ,
== END ==
PROVIDERS: PCP Nurse Practitioner Primary Care; Visit Provider Orthopaedic Surgery
DX: M16.12 Unilateral primary osteoarthritis, left hip (principal)
CPT/HCPCS: 73700

== ENCOUNTER 2020-08-06 05:20 | Day surgery (SDC) | payer MEDICAID, SELFPAY ==
[2020-07-17 11:40] LABS: Absolute Lymphocyte Count 2.95 X10^3/uL (0.83-4.51); Absolute Neutrophil Count 4.9 X10^3/uL (2.0-7.7); Basophil# 0.03 X10^3/uL; Basophil% 0.4 % (0-1); Eosinophil# 0.06 X10^3/uL; Eosinophils% 0.7 % (0-5); Hematocrit 42.8 % (40-54); Hemoglobin 13.8 g/dL (13.0-16.5); Lymphocyte # 2.95 X10^3/ul (4.0); Mean Corp Hgb Conc 32.2 g/dL (32-36); Mean Corpuscular Hgb 29.3 pg (27.0-32.0); Mean Corpuscular Volume 90.9 fL (80-94); Mean Platelet Vol. 10.7 fl (6.2-12.0); Monocyte# 0.48 X10^3/uL; Monocyte% 5.7 % (0-10); NRBC Flagged by Analyzer 0 % (0-5); Neutrophil # 4.89 X10^3/uL (2.7-7.7); Neutrophil % 57.8 % (47-70); Platelet Count 218 K/mm3 (150-450); RBC Distribution Width CV 13.2 % (11.6-14.6); RBC Distribution Width SD 44.6 fl (35.1-43.9); Red Blood Count 4.71 M/mm3 (4.6-6.2); White Blood Count 8.4 K/mm3 (4.4-11.0)
[2020-07-17 11:47] LABS: Partial Thromboplast Time 25.2 Seconds (24.1-36.2); Prothrombin Time (Protime)PT. 12.9 SECONDS (11.7-14.9)
[2020-07-17 12:03] LABS: Anion Gap 6 (5-15); BUN 8 mg/dL (7-18); BUN/Creat Ratio 6.8 RATIO (10-20); Calcium,Total 8.7 mg/dL (8.5-10.1); Chloride 111 mmol/L (98-107); Creatinine, Serum 1.18 mg/dL (0.70-1.30); EST Glomerular Filtration Rate 69 mL/min (>60); Est Glom Filt Rate - Afr Amer 84 mL/min (>60); Glucose 91 mg/dL (74-106); Potassium 3.7 mmol/L (3.5-5.1); Sodium Level 143 mmol/L (136-145)
[2020-07-17 12:15] LABS: AST(SGOT) 19 U/L (15-37); Alanine Aminotransfer ALT/SGPT 36 U/L (16-61); Albumin, Serum 3.7 g/dL (3.2-5.0); Alkaline Phosphatase 80 U/L (45-117); Bilirubin, Direct 0.06 mg/dL (0.00-0.30); Globulin 3.8 g/dL (2.2-4.2); Magnesium 1.9 mg/dL (1.6-2.6); Protein, Total 7.5 g/dL (6.4-8.2)
[2020-07-23] MEDS: Celecoxib 200 MG Capsule 400 MG PO (06:14)
[2020-07-23] MEDS: Gabapentin 600 MG Tablet PO (06:15)
[2020-07-23] MEDS: Scopolamine 1mg/72hr Patch 1 PATCH TD (06:15)
[2020-07-23] MEDS: Lactated Ringers 1,000 ML 100 ML IV (06:15)
[2020-07-23] MEDS: Lactated Ringers 1,000 ML 999 ML IV (06:15)
[2020-07-23] MEDS: Acetaminophen 500 MG Tablet 1000 MG PO (06:15)
[2020-07-23 06:25] VITALS: BP 158/98; PULSE 49; RESP 16; TEMP 36.7; BMI 34.4
[2020-07-23 06:30] LABS: Bedside Glucose 95 mg/dL (70-110)
[2020-08-06] VITALS (9 sets, daily range): BP systolic 107–143; BP diastolic 70–89; PULSE 53–84; RESP 16–18; TEMP 35.9–36.7; O2SAT 96–100; BMI 34.6
[2020-08-06] MEDS: Lactated Ringers 1,000 ML 999 ML IV ×2 (06:10→07:16)
[2020-08-06] MEDS: Scopolamine 1mg/72hr Patch 1 PATCH TD (06:10)
[2020-08-06] MEDS: Acetaminophen 500 MG Tablet 1000 MG PO (06:10)
[2020-08-06] MEDS: Gabapentin 600 MG Tablet PO (06:10)
[2020-08-06] MEDS: Celecoxib 200 MG Capsule 400 MG PO (06:10)
[2020-08-06] MEDS: Lactated Ringers 1,000 ML 100 ML IV ×2 (07:15→09:15)
--- NOTE | 2020-08-06 07:19 | HP.PCM_ITS ---
History and Physical Date of Admission: 08/06/20 Intake Intake Visit Reasons: Right hip Allergies No Known Allergies Allergy (Verified 06/03/20 10:27) [facility] Social History (Updated 07/01/20 @ 15:[address] Toni Quinn DO) Smoking Status: Current every day smoker HPI Right hip: Chief Complaint: PO right ANGEL C/o Left hip pain Details: Parts of this documentation were recorded by a scribe, this documentation accurately reflects the service provided and the decisions made by me, Dr. Toni Quinn DO 07/01/20 0758. RAMILA SNYDER is a 49 year old M here today for 7 week post op right ANGEL. Denies any right hip pain. He has been ambulating with a single point pain. He states he has been getting increased left hip and thigh pain. Denies any concerns with the right hip. Denies any pain medication. Was discharged from PT. ROS Musc Denies joint pain, Denies numbness, Denies tingling Skin/Breast Reports system reviewed and no additional complaints, except as docu Neuro Yes system reviewed and no additional complaints, except as docu, No numbness, No tingling Ortho Exam General General: Yes no acute distress Neurologic: Yes alert Psychologic: Yes reasonable and appropriate Left Hip Skin/Wound: Yes CDI, No Ecchymosis, No soft tissue swelling, No Erythema Hip: Absent eccymosis, soft tissue swelling or erythema HIP: 4/5 hip flexion, 5/5 hip flexion, 5.5 ankle PF and DF Supplemental Info 08/16/2019 x-ray bilateral hips markedly advanced arthrosis bilaterally consistent with possibility of prior avascular necrosis with deformity to femoral heads large bone spurs of acetabulum Assessment & Plan Problems 1. Primary osteoarthritis of left hip M16.12 Plan Patient educated that he is doing well with the right ANGEL. No s/sx of infection of the right hip and there is no sign of loosening of the hardware. Patient wishes to also proceed with the left ANGEL. We will stop the colchicine 2 weeks before surgery and hold the medication 2 weeks post op to reduce risk of infection. We will schedule his surgery for 07/23/2020. Risks, benefits and alternatives of surgery reviewed including but not limited to bleeding, infection, nerve, artery and/or tissue damage, fracture, VTE, leg length discrepancy, dislocation, need for hip precautions, continued pain and expected post-operative course. Follow up 2 weeks post op or sooner if pain, swelling, numbness or associated symptoms, or concerns develop. All questions answered. Patient in agreement of plan. Orders Orders: HIP, UNI W/ Pelvis 2-3 Views Today Z47.89 Coding Level of Care Code Off vis,est,level 3 Diagnoses Primary osteoarthritis of left hip M16.12 I have re-examined the patient. There are no clinical changes since date of exam Procedure Criteria Procedure Type: Elective COVID Risk Discussion: The surgeon/proceduralist and patient have discussed in detail the risk of exposure to and/or potential harm posed by the COVID-19 virus with having a surgery/procedure at this time versus the risk of delaying the surgery/procedure. It is not possible to know either the risk of delaying the surgery or procedure or chance of getting an infection with perfect accuracy, but a joint decision was made between the patient and the surgeon/proceduralist to proceed at this time with the scheduled surgery/procedure as indicated on the consent form.
[2020-08-06] MEDS: Cefazolin 2 GM in 0.9% Normal Saline 100 ML IV (07:46)
[2020-08-06] MEDS: dexAMETHasone 10 MG/ML Vial IV (07:52)
[2020-08-06 08:01] LABS: Bedside Glucose 103 mg/dL (70-110)
--- NOTE | 2020-08-06 09:51 | RAD_ITS ---
EXAM: XR LEFT HIP WITH PELVIS WHEN PERFORMED, 2 OR 3 VIEWS CLINICAL INDICATION: POST OP TOTAL HIP TECHNIQUE: Two or three views of the left hip with pelvis when performed. This report was created using [employer] report generation technology. COMPARISON: 07/01/2020 FINDINGS: BONES/JOINTS: Bilateral hip replacements, the left new since the prior study. There is radiographic alignment. SOFT TISSUES: Unremarkable. No soft tissue swelling or gas. RAD/Hip Min 2 Views (Portable) IMPRESSION: Left hip replacement in radiographic alignment. Electronically Signed: Michael Cantu MD ([place]) at 12:39 EST , Service support ,
--- NOTE | 2020-08-06 09:57 | PCM.DC.ORTHO ---
Discharge Diet: No Restrictions, - - low purine diet, gout diet Weight Bearing Status: Weight bearing as tolerated Keep extremity elevated above heart level: Operative Extremity Call your doctor if you observe: Shortness of breath, Chest pain Additional Instructions: Do not shower 72hrs. Begin daily showering warm water antibacterial soap postop day #3( 72hrs Post-operatively) and then daily. Leave the dressing on for 72 hours postoperatively then may remove prior to first shower and change dressing daily after this until no drainage for 2 consecutive days then may leave open to air. Follow hip precautions that were reviewed in hospital. Wear compression stockings, may remove at night. Start physical therapy as directed in hospital. Follow prescriptions instructions do not take any other pain medication or differ dosing without consulting your physician. Do not take oral NSAIDs until blood thinner has been completed , then may begin the day after completion if needed . Call Dr. Quinn's office with any concerns. Allergies/Adverse Reactions: Allergies No Known Allergies Allergy (Verified 08/06/20 06:38) Medications to take at Discharge allopurinol 100 mg tablet 300 mg PO BID 09/11/19 Diltiazem HCl [Cartia Xt] 120 mg PO DAILY 05/14/20 Colchicine 0.6 mg PO DAILY 07/10/20 Acetaminophen [Tylenol Extra Strength] 1,000 mg PO Q6H PRN #100 tab 08/06/20 Apixaban [Eliquis] 2.5 mg PO BID #30 tab 08/06/20 Cephalexin [Keflex] 1,000 mg PO Q8 #4 cap 08/06/20 Ondansetron HCl [Zofran] 4 mg PO Q6H PRN PRN 5 Days #10 tab 08/06/20 Oxycodone [Oxyir] 5 mg PO Q4H PRN PRN #60 tablet 08/06/20 The following prescriptions were given: Apixaban [Eliquis] 2.5 mg PO BID #30 tab Transmission Status: Pending to [facility] Cephalexin [Keflex] 1,000 mg PO Q8 #4 cap Transmission Status: Pending to [facility] Oxycodone [Oxyir] 5 mg PO Q4H PRN PRN #60 tablet PRN Reason: Pain Score 6-10 Transmission Status: Sent to [facility] Acetaminophen [Tylenol Extra Strength] 1,000 mg PO Q6H PRN #100 tab Transmission Status: Pending to [facility] Ondansetron HCl [Zofran] 4 mg PO Q6H PRN PRN 5 Days #10 tab PRN Reason: Nausea Transmission Status: Pending to [facility] Primary Care Physician: Yunior Higgins HEALTH DIAGNOSTICS TEACHER, HEALTH DIAGNOSTICS TEACHER-C [Primary Care Provider] - Test Results: Test results from this visit will be discussed in further detail at your follow-up appointment, if applicable. Please Follow Up With: Toni Quinn DO - 2weeks
--- NOTE | 2020-08-06 10:01 | OP.PCM_ITS ---
Report of Operation Date of Procedure: 08/06/20 Description of Surgical Findings:: Preoperative diagnosis: Left hip DJD Postoperative diagnosis: Same Procedure: CT-guided Makoplasty assisted left total hip arthroplasty Implants: [place] Accolade II stem size 3, 127 degree neck angle -2.5 neck length 54 mm Trident II acetabular shell with 40 mm cancellous screw 36 mm ceramic head Anesthesia: Spinal EBL: 200 cc Complications: None Condition: Stable to PACU Indication for procedure: This is a 49-year-old male who has had long-standing arthrosis of the hip who has failed conservative treatment and wished to undergo total hip arthroplasty. We did discuss operative versus nonoperative intervention including risks of bleeding, infection , nerve artery tissue damage, need for further surgery, fracture, leg length discrepancy dislocation blood clot and need for postoperative physical therapy and postoperative expectations. An informed consent was signed. Procedure: Patient was met in the preoperative holding area once again the operative extremity was identified by both patient and physician and was marked. Patient was met by anesthesia . Anesthesia was started. patient was then positioned in the lateral decubitus position on a well-padded pegboard with an axillary roll. All bony prominences were checked and padded. The patient was prepped and draped in the usual sterile fashion. A timeout was called to ensure the proper patient procedure and extremity were being contemplated. Anatomic l andmarks were palpated and marked for a standard posterior lateral approach. Prior to this the ASIS was palpated and 3 fingerbreadths proximal to this 3 pins were placed at a 45 degree angle into the iliac crest with good purchase, stab incisions were made with a 15 blade into the skin prior to placement. The Makoplasty array was then secured. A 10 blade scalpel was used to make a posterior incision through the skin and subcutaneous tissue. retractors were used and electrocautery was used to maintain meticulous hemostasis and dissect full-thickness flaps until the gluteal fascia was reached. The gluteal fascia was incised in line with the gluteal fibers. The bursal tissue was then freed from the underside and a Charnley retractor was placed. The femoral trochanteric checkpoint was placed and leg length was assessed using the trochanteric checkpoint and an EKG lead that was placed on the knee prior to prepping the leg .the fat pad was then elevated off of the external rotators wi th electrocautery and the external rotators were dissected off of the greater trochanter including the piriformis and were tagged with #1 Ethibond for later repair. The joint capsule opened with posterior trapdoor technique. The hip was surgically dislocated. The measurement on the preoperative CT from the top of the lesser trochanter to the femoral neck cut was marked Hohmann was placed around the lesser trochanter. A neck cutting guide was used to nakul the neck with a Bovie and an oscillating saw was used complete the femoral neck cut. The femoral head was then removed and sized. We then turned our attention to the acetabulum. A Bovie was used to make a perforation in the anterior joint capsule and a Purdy retractor was placed this was repeated in the 6 o'clock position and a wide zechariah was placed there. With a long handled knife the labral and pulvinar tissue were removed. We then registered the acetabulum with the pointing array and confirmed our landmarks. Once the socket was thoroughly prepared and labral tissue pulvinar was removed we single reamed with the robotic arm. We then used the robotic arm to position the acetabular implant and impacted it into place under robotic guidance. We then proceeded to place a posterior superior screw by drilling first measuring and inserting the screw. We then inserted a trial liner. And turned our attention back to the femur at this point a femoral elevator was used. As well as a pointed wide Hohmann around the lesser trochanter and a Hohmann to help retract the gluteus medius. A box chisel was used to remove excess lateral neck followed by a canal finder and a lateralizing reamer. This was followed by sequential broaches. Attention was made of the version within the canal based on preoperative templating. Once the final broach was seated we then trialed reduced the hip it was determined that a 127 degree neck angle with a -2.5 neck length was the appropriate size. We then checked stability with shuck testing as well as flexion and internal rotation. then proceeded with hip extension and checked leg lengths at the knees and heels as well as with the trochanteric checkpoint and knee EKG lead. At this point trials were removed. A liner was inserted to the cup. The femoral stem was inserted. We re-trialed and then proceeded to impact the femoral head onto the Aniket taper. We then surgically reduce the hip check stability again and leg lengths and were satisfied. Betadine rinse was allowed to sit for 5 minutes while everyone changed their gloves. Thorough irrigation was performed. Followed by closure of the external rotators with #2 FiberWire followed by closure of gluteal fascia with #1 Ethibond. 0 Vicryl fat stitches and 2-0 Vicryl subcutaneous stitches and clarence in the skin. A pulls were placed in the pin sites over the iliac crest with Xeroform 4 x 4 and OpSite. dressing was applied to incisional area with Mepilex Ag and an abduction pillow was placed. Patient tolerated the procedure well there was no intraoperative complications all counts were correct and the patient was brought back to the PACU in stable condition
[2020-08-06 10:51] LABS: Hematocrit 35.7 % (40-54); Hemoglobin 11.4 g/dL (13.0-16.5)
[2020-08-06] MEDS: Cefazolin 1 GM/50 ML BAG IV (11:57)
== END 2020-08-06 14:00 | disposition home or self-care (01) ==
LOC: SDC 05:21 → AC 05:21
PROVIDERS: Anesthesiology; PCP Nurse Practitioner Primary Care; Referring Provider Orthopaedic Surgery; Visit Provider Orthopaedic Surgery
PROC: 8E0Y0CZ Robotic Assisted Procedure of Lower Extremity, Open Approach (ICD-10-PCS; CPT 27130; principal; 2020-08-06 07:00)
DX: M16.12 Unilateral primary osteoarthritis, left hip (principal); I10 Essential (primary) hypertension; F17.200 Nicotine dependence, unspecified, uncomplicated; Z20.822 Contact with and (suspected) exposure to COVID-19
CPT/HCPCS: 0055T; 01214; 27130; 36415; 73502; 80048; 80076; 82962; 83735; 85014; 85018; 85025; 85610; 85730; 86850; 86900; 86901; 87081; 87426; 97162; C1713; C1776; C9803; J7120; J2405

== ENCOUNTER 2021-06-05 18:29 | Outpatient (CLI) | payer MEDICAID, SELFPAY ==
[2021-06-05 18:30] VITALS: BP 125/74; PULSE 65; RESP 26; TEMP 37.9; O2SAT 75
--- NOTE | 2021-06-05 18:30 | NURSING ---
Pt arrivied to unit in w/c. See Vs and Physician notification. Pt placed on 6L o2 pulse ox increased to 92% and was taken to ER in w/c by security. ER was called and notified of pt coming.
[2021-06-05 18:35] VITALS: BP 126/80; PULSE 66; RESP 26; O2SAT 92
== END 2021-06-05 18:35 | disposition home or self-care (01) ==
LOC: MS3OUT 18:30 → MS3 18:32
PROVIDERS: PCP Nurse Practitioner Primary Care; Referring Provider Nurse Practitioner Adult Health; Visit Provider Nurse Practitioner Adult Health
DX: U07.1 COVID-19 (principal)
CPT/HCPCS: Q0245

== ENCOUNTER 2021-06-05 18:50 | Inpatient (IN) | payer MEDICAID, SELFPAY ==
[2021-06-05] VITALS (8 sets, daily range): BP systolic 112–182; BP diastolic 67–119; PULSE 45–66; RESP 18–40; TEMP 37.4–38.2; O2SAT 79–96; BMI 32.5
--- NOTE | 2021-06-05 18:55 | EKG12_ITS ---
Test Reason : SOB Blood Pressure : / mmHG Vent. Rate : 067 BPM Atrial Rate : 067 BPM P-R Int : 142 ms QRS Dur : 102 ms QT Int : 402 ms P-R-T Axes : 000 -33 001 degrees QTc Int : 424 ms Normal sinus rhythm Left axis deviation Abnormal ECG Confirmed by ARTIE MALDONADO, KIMBERLY ([id number]), editor in chief newspaper CARL SORENSON ([id number]) on 06/09/2021 9:36:29 AM Referred By: MATTY Confirmed By:KIMBERLY ALVA MD
--- NOTE | 2021-06-05 18:56 | EDS_ITS ---
HPI History of Present Illness Chief Complaint: Shortness of Breath Detail of Chief Complaint: Hypoxia, positive Covid test Informant: patient Onset/Context/Timing Onset: - (Unknown) Context: - (Unknown) Timing: Continuous Quality: Positive for Dyspnea on exertion; Negative for Orthopnea, PND and Wheezing Current Severity: Mild (She was placed on 5-6 L of oxygen) Maximum Severity: Severe Worsened by: Exertion and Coughing; Not Worsened By Lying flat Relieved by: Nothing Associated Symptoms cough, rhinorrhea, post nasal drip, fever, sore throat and chills; Negative for ear pain, yellow sputum or green sputum Chest Pain: Positive for None Narrative Narrative: Patient is a middle-age male with history of gout, hypertension and erectile dysfunction who presents with pulse ox of 49%. He was at the infusion center to receive Covid antibody infusion. Onset of his symptoms 9 days ago. Patient denies headache. He denies double vision or blurred vision. He does report rhinorrhea, congestion and sore throat. He denies ear pain or decreased hearing. He does report cough. Denies chest pain. He does report nausea has had no vomiting or diarrhea in the past 24 hours. He denies decreased urine output. He did endorse being thirsty and dry mouth. He denies being diabetic. He denies history of obstructive sleep apnea. He denies history of VTE. PE Risk Factors: Positive for Recent travel; Negative for Cancer, OCP + Smoking + > 35, Prior DVT or PE, Recent immobilization and Recent surgery Prior similar symptoms: Yes Recent Illness/Hospitalization: Yes [facility] Medical History (Updated 06/05/21 @ 20:[address] Rey Pope MD) Hypertension Home Medications allopurinol 100 mg tablet 300 mg PO BID 09/11/19 [History Last Taken Unknown] diltiazem HCl 120 mg PO DAILY 05/14/20 [History Last Taken 08/06/20] sildenafil 50 mg tablet 50 mg PO PRN PRN tab 05/26/21 [History Last Taken Unknown] Allergy/AdvReac Type Severity Reaction Status Date / Time No Known Allergies Allergy Verified 06/05/21 11:02 Social History (Updated 06/05/21 @ 18:[address] Rey Pope MD) household members: family Smoking Status: Current every day smoker substance use type: does not use ROS ROS ED Constitutional Constitutional ED: Reports chills, fever(s) and sweats; Denies weight loss Eyes Eyes: Denies blurry vision, change in vision or diplopia ENT ENT ED: Reports rhinorrhea and sore throat; Denies ear pain Cardiovascular Cardiovascular: Denies chest pain, orthopnea, palpitations, paroxysmal nocturnal dyspnea or racing heartbeat Respiratory/Chest Respiratory/Chest: Reports cough, dyspnea and dyspnea on exertion; Denies orthopnea, paroxysmal nocturnal dyspnea or sputum Gastrointestinal Gastrointestinal: Denies abdominal pain, diarrhea, nausea or vomiting Genitourinary Genitourinary ED: Denies dysuria, hematuria or urinary frequency Musculoskeletal Musculoskeletal: Denies arthralgias, back pain, myalgias or neck pain Integumentary Denies rash Neurologic Neurologic: Reports weakness; Denies headache(s) or paresthesias Psychiatric Psychiatric: Denies depression Endocrine Endocrinology: Denies polydipsia, polyphagia or polyuria EXAM Physical Exam Const Vital Signs: 06/05/21 18:51 06/05/21 18:57 06/05/21 18:58 Temperature 100.8 F H 100.8 F H Temperature Source Oral Oral Pulse Rate 66 63 Respiratory Rate 36 H 30 H Respiratory Effort Short of Breath Respiratory Pattern Tachypnea Blood Pressure 117/84 H 117/84 H Blood Pressure Mean 95 95 Pulse Ox 79 94 Oxygen Delivery Method Room Air Nasal Cannula Nasal Cannula Oxygen Flow Rate (L/min) 5 5 06/05/21 19:58 06/05/21 20:02 Temperature Temperature Source Pulse Rate 62 62 Respiratory Rate 32 H 40 H Respiratory Effort Respiratory Pattern Blood Pressure 160/84 H 160/84 H Blood Pressure Mean 109 109 Pulse Ox 95 96 Oxygen Delivery Method Nasal Cannula Nasal Cannula Oxygen Flow Rate (L/min) 5 5 Positive well nourished and well developed General Appearance ED: well developed and other Patient was cyanotic and in respiratory distress. ; Negative for NAD or pallor HEENT Reports TM's clear and dry mucous membranes HEENT Narrative: Nares patent with clear drainage. Ears normal. Posterior pharynx without erythema or exudate. atraumatic Tympanic Membrane ED: Yes TM's clear Mouth ED: Yes dry mucous membranes Mouth: dry mucous membranes Eyes PERRL and EOMs intact bilaterally General Eye ED: Negative for pale conjunctiva or scleral icterus Neck no lymphadenopathy, supple, no meningeal signs and no JVD Resp No normal respiratory effort and No clear to auscultation bilaterally Effort and Inspection: Negative for pain with movement Auscultation: rales bilateral lower; Negative for rhonchi or wheezes Cardio regular rate, regular rhythm, S1 normal heart sound, S2 normal heart sound and no murmurs GI non-tender, non-distended and no masses Auscultation: normoactive bowel sounds Palpation: soft Back/Spine no CVA tenderness and normal to inspection Extremity normal to inspection Extremity Narrative: There is no asymmetry, swelling, discoloration, leg vein distention, palpable cords or tenderness along the distribution of the deep venous system. General Extremety ED: Negative for edema or tenderness General Extremity: Negative for edema Neuro [place] Coma Scale: document GCS findings Spontaneous Obeys Commands Oriented 15 Psych mental status grossly normal Thought Process: normal thought process Skin no wounds General Skin Exam: Negative for jaundice or pallor Lesions: no lesions Rashes: no rashes MDM MDM MDM Narrative Medical decision making narrative: Clinically patient has Covid pneumonia. He is hypoxic due to Covid pneumonia. Will treat fever with acetaminophen and since he is hypoxic you will receive Decadron. ABG was obtained to assess acid- base status and rule out hypercapnia. Lab Data Attestation: I reviewed the patient's lab results. Lab results narrative: VBG reveals no acid-base disturbance. And no evidence of CO2 retention. White count is elevated. Coags are normal. Creatinine is elevated. Creatinine is 1.84. Prior creatinine was normal. Liver enzymes are elevated. Patient's lactic acidosis is due to hypoxia. Labs: Laboratory Results - last 24 hr 06/05/21 06/05/21 06/05/21 19:15 19:15 19:15 WBC 13.0 H RBC 4.56 L Hgb 13.9 Hct 40.7 MCV 89.3 MCH 30.5 MCHC 34.2 RDW Std Deviation 40.2 RDW Coeff of Moshe 12.4 Plt Count 242 MPV 12.0 Immature Gran % (Auto) 2.200 H Neut % (Auto) 86.8 H Lymph % (Auto) 7.8 L [place] % (Auto) 3.0 Eos % (Auto) 0.0 Baso % (Auto) 0.2 Absolute Neuts (auto) 11.3 H Absolute Lymphs (auto) 1.02 Nucleated RBC % 0 Platelet Estimate ADEQUATE RBC Morphology N CHROM Anisocytosis RARE PT 14.1 INR 1.2 APTT 34.7 Sodium 137 Potassium 4.0 Chloride 104 Carbon Dioxide 22.0 Anion Gap 11 BUN 36 H Creatinine 1.84 H Estim Creat Clear Calc 44.41 Est GFR (MDRD) Af Amer 50 L Est GFR (MDRD) Non-Af 41 L BUN/Creatinine Ratio 19.6 Glucose 133 H Lactic Acid Calcium 8.9 Total Bilirubin 0.80 AST 112 H ALT 87 H Alkaline Phosphatase 87 Total Protein 8.3 H Albumin 2.6 L Globulin 5.7 H Albumin/Globulin Ratio 0.5 L 06/05/21 19:15 WBC RBC Hgb Hct MCV MCH MCHC RDW Std Deviation RDW Coeff of Moshe Plt Count MPV Immature Gran % (Auto) Neut % (Auto) Lymph % (Auto) [place] % (Auto) Eos % (Auto) Baso % (Auto) Absolute Neuts (auto) Absolute Lymphs (auto) Nucleated RBC % Platelet Estimate RBC Morphology Anisocytosis PT INR APTT Sodium Potassium Chloride Carbon Dioxide Anion Gap BUN Creatinine Estim Creat Clear Calc Est GFR (MDRD) Af Amer Est GFR (MDRD) Non-Af BUN/Creatinine Ratio Glucose Lactic Acid 2.6 H* Calcium Total Bilirubin AST ALT Alkaline Phosphatase Total Protein Albumin Globulin Albumin/Globulin Ratio ABG Data ABG results: ABG 06/05/21 19:18 Specimen Type DOROTHY VBG pH 7.43 H VBG pO2 32 VBG HCO3 23 VBG Total CO2 24 VBG O2 Sat (Calc) 63 VBG Base Excess -2 L POC Mix VBG pCO2 Pt Tmp 33.7 L Liter Flow 5.0 Radiography Chest X-Ray - ED: 1 View (X-ray interpreted by me at 1954. Patient has bilateral interstitial infiltrates consistent with Covid pneumonia.) Diagnostic Testing: Clinical Impression(s) from Imaging Studies Chest X-Ray 06/05/21 19:28 IMPRESSION: Bilateral pneumonia. Electronically Signed: Janes Burns MD at 19:56 EST , Service support , EKG Initial EKG: Attestation: I personally reviewed and interpreted this EKG as follows: Interpretation: Sinus Rhythm (Ventricular rate 67. MS interval 142 ms. Cures duration under 2 ms. QT duration 4 to 2 ms. [place] to the left.) Discharge Plan Dx/Rx/DC Orders Clinical Impression: Acute respiratory failure with hypoxia, Pneumonia due to 2019-nCoV, Sepsis, Acute kidney injury, Acidosis, lactic Disposition Disposition: Acute Care [facility]
[2021-06-05] MEDS: dexAMETHasone 10 MG/ML Vial IV (19:19)
[2021-06-05 19:25] LABS: Blood Gas Specimen Type VEN; VBG BASE EXCESS -2 mmol/L (-1.0-3.5); VBG Bicarbonate 23 mmol/L (22-26); VBG PO2 32 mmHg (25-40); VBG SO2 63 % (50-70); VBG TCO2 24 mmol/L (23-33); VBG pCO2 33.7 mmHg (41-51); VBG pH 7.43 (7.32-7.42)
[2021-06-05 19:27] LABS: Absolute Lymphocyte Count 1.02 X10^3/uL (0.83-4.51); Absolute Neutrophil Count 11.3 X10^3/uL (2.0-7.7); Basophil# 0.03 X10^3/uL; Basophil% 0.2 % (0-1); Hematocrit 40.7 % (40-54); Hemoglobin 13.9 g/dL (13.0-16.5); Lymphocyte # 1.02 X10^3/ul (0.83-4.51); Lymphocyte % 7.8 % (19-41); Mean Corp Hgb Conc 34.2 g/dL (32-36); Mean Corpuscular Hgb 30.5 pg (27.0-32.0); Mean Corpuscular Volume 89.3 fL (80-94); Monocyte# 0.39 X10^3/uL; NRBC Flagged by Analyzer 0 % (0-5); Neutrophil % 86.8 % (47-70); POSITIVE MORPHOLOGY YES; Platelet Count 242 K/mm3 (150-450); RBC Distribution Width CV 12.4 % (11.6-14.6); RBC Distribution Width SD 40.2 fl (35.1-43.9); Red Blood Count 4.56 M/mm3 (4.6-6.2)
[2021-06-05 19:28] LABS: Differential Indicated SCAN CRITERIA MET
--- NOTE | 2021-06-05 19:28 | RAD_ITS ---
STUDY: X-RAY CHEST REASON FOR EXAM: Male, 50 years old. CHEST PAIN Bilateral rales, positive Covid test TECHNIQUE: XR Chest 1 View COMPARISON: None FINDINGS: There is no demonstrated pleural abnormality. There is bilateral infiltrate. Normal size heart. Normal mediastinum and clement. Normal visualized pulmonary arteries. There is atherosclerotic calcification of the aortic arch with tortuosity. There are diffuse degenerative changes of the visualized thoracic spine. There is degenerative osteoarthritis of the bilateral shoulders. There is no demonstrated abnormality of the visualized soft tissue structures of the upper abdomen. RAD/Chest 1 View (Portable) IMPRESSION: Bilateral pneumonia. Electronically Signed: Janes Burns MD at 19:56 EST , Service support ,
[2021-06-05 19:42] LABS: International Normalized Ratio 1.2; Prothrombin Time (Protime)PT. 14.1 SECONDS (11.7-14.9)
[2021-06-05 19:43] LABS: Partial Thromboplast Time 34.7 Seconds (24.1-36.2)
[2021-06-05 19:50] LABS: ALB/GLOB Ratio 0.5 RATIO (0.9-2.4); AST(SGOT) 112 U/L (15-37); Alanine Aminotransfer ALT/SGPT 87 U/L (16-61); Albumin, Serum 2.6 g/dL (3.2-5.0); Alkaline Phosphatase 87 U/L (45-117); Anion Gap 11 (5-15); BUN 36 mg/dL (7-18); BUN/Creat Ratio 19.6 RATIO (10-20); Calcium,Total 8.9 mg/dL (8.5-10.1); Chloride 104 mmol/L (98-107); Creatinine, Serum 1.84 mg/dL (0.70-1.30); EST Glomerular Filtration Rate 41 mL/min (>60); Est Glom Filt Rate - Afr Amer 50 mL/min (>60); Estimated Creatinine Clearance 44.41 ml/min; Globulin 5.7 g/dL (2.2-4.2); Glucose 133 mg/dL (74-106); Protein, Total 8.3 g/dL (6.4-8.2); Sodium Level 137 mmol/L (136-145)
[2021-06-05 19:56] LABS: Anisocytosis RARE; Platelet Estimate ADEQUATE (ADEQ); Red Cell Morphology N CHROM NORMAL (NORM C&C)
[2021-06-05 20:02] LABS: Lactic Acid 2.6 mmol/L (0.4-1.9)
[2021-06-05] MEDS: 0.9% Normal Saline 1,000 ML 150 ML IV (20:03)
--- NOTE | 2021-06-05 20:04 | ED.RN ---
DR RUFF AWARE OF LA RESULT.
--- NOTE | 2021-06-05 21:42 | PCM.HP.STD ---
HPI - General General Date of Admission: 06/05/21 HPI Narrative RAMILA SNYDER, is a 50 M With a significant history of hypertension and gout who presents to emergency department with progressively worsening Covid-like symptoms that started around May 242020. Patient presents emergency department on June 05, 2021. He described his Covid-like symptoms as a persistent cough causing chest pain. His cough is mostly dry but occasionally productive for clear sputum. He denies shortness of breath but he went to an infusion center for monoclonal antibody and he was hypoxic so he was told to come to the emergency department. He denies dysgeusia or anosmia. He denies fatigue. He reports myalgia. He reports anorexia. Reportedly on the day of presentation his oxygen saturation was about 49% [facility] Medical History (Updated 06/06/21 @ 01:03 by Debi Nicholson) Anemia Hypertension Rheumatoid arthritis Home Medications allopurinol 100 mg tablet 300 mg PO BID 09/11/19 [History Last Taken Unknown] diltiazem HCl 120 mg PO DAILY 05/14/20 [History Last Taken 08/06/20] sildenafil 50 mg tablet 50 mg PO PRN PRN tab 05/26/21 [History Last Taken Unknown] Allergy/AdvReac Type Severity Reaction Status Date / Time No Known Allergies Allergy Verified 06/05/21 11:02 Family History (Updated 06/05/21 @ 22:[address] Toni Burleson MD) Other Cancer Surgical History Hx of total hip arthroplasty Social History (Updated 06/05/21 @ 22:[address] Toni Burleson MD) household members: family Smoking Status: Never smoker substance use type: does not use ROS ROS Narrative Pertinent positives and pertinent negatives as noted in HPI. All other systems were reviewed and are negative. Vital Signs Vital Signs Vital Signs: 06/05/21 18:51 06/05/21 18:57 06/05/21 18:58 Temperature 100.8 F H 100.8 F H Temperature Source Oral Oral Pulse Rate 66 63 Respiratory Rate 36 H 30 H Respiratory Effort Short of Breath Respiratory Pattern Tachypnea Blood Pressure 117/84 H 117/84 H Blood Pressure Mean 95 95 Pulse Ox 79 94 Oxygen Delivery Method Room Air Nasal Cannula Nasal Cannula Oxygen Flow Rate (L/min) 5 5 06/05/21 19:58 06/05/21 20:02 06/05/21 21:40 Temperature Temperature Source Pulse Rate 62 62 52 L Respiratory Rate 32 H 40 H 31 H Respiratory Effort Respiratory Pattern Blood Pressure 160/84 H 160/84 H 182/119 H Blood Pressure Mean 109 109 140 Pulse Ox 95 96 95 Oxygen Delivery Method Nasal Cannula Nasal Cannula Oxygen Flow Rate (L/min) 5 5 Weight Weight: 94.1 kg Body Mass Index (BMI) 32.5 Physical Exam Narrative Physical exam: General: Well-nourished, well-developed. Head: Normocephalic, atraumatic, no tenderness Eyes: PERRLA, EOMI ENT, no trauma, moist mucous membranes, no rhinorrhea Neck: Nontender, full range of motion, no spinal tenderness, deformities, step-off CVS: Regular rate and rhythm. S1-S2 present. No murmur, gallop or rub. Respiratory : Rales. hest wall nontender, no wheezing Abdomen: Soft, nontender, nondistended, normal bowel sounds, no masses : Deferred Back: Nontender, no CVA tenderness, no midline spinal tenderness, deformities, step-offs Extremities: Nontender full range of motion, no trauma Skin: Normal color, no trauma, abrasions Neuro: Alert, oriented, cranial nerves II through XII grossly intact. Psychiatry: Normal mood. Normal affect. Not depressed. Not anxious. Results Lab / Micro Data Result Diagrams: 06/06/21 06:33 06/06/21 06:33 Labs: Laboratory Results - last 24 hr 06/05/21 19:15: WBC 13.0 H, RBC 4.56 L, Hgb 13.9, Hct 40.7, MCV 89.3, MCH 30.5, MCHC 34.2, RDW Std Deviation 40.2, RDW Coeff of Moshe 12.4, Plt Count 242, MPV 12.0, Immature Gran % (Auto) 2.200 H, Neut % (Auto) 86.8 H, Lymph % (Auto) 7.8 L, [place] % (Auto) 3.0, Eos % (Auto) 0.0, Baso % (Auto) 0.2, Absolute Neuts (auto) 11.3 H, Absolute Lymphs (auto) 1.02, Nucleated RBC % 0, Platelet Estimate ADEQUATE, RBC Morphology N CHROM, Anisocytosis RARE 06/05/21 19:15: PT 14.1, INR 1.2, APTT 34.7 06/05/21 19:15: Sodium 137, Potassium 4.0, Chloride 104, Carbon Dioxide 22.0, Anion Gap 11, BUN 36 H, Creatinine 1.84 H, Estim Creat Clear Calc 44.41, Est GFR (MDRD) Af Amer 50 L, Est GFR (MDRD) Non-Af 41 L, BUN/Creatinine Ratio 19.6, Glucose 133 H, Calcium 8.9, Total Bilirubin 0.80, AST 112 H, ALT 87 H, Alkaline Phosphatase 87, Total Protein 8.3 H, Albumin 2.6 L, Globulin 5.7 H, Albumin/Globulin Ratio 0.5 L 06/05/21 19:15: Lactic Acid 2.6 H* ABG Data ABG results: ABG 06/05/21 19:18 Specimen Type DOROTHY VBG pH 7.43 H VBG pO2 32 VBG HCO3 23 VBG Total CO2 24 VBG O2 Sat (Calc) 63 VBG Base Excess -2 L POC Mix VBG pCO2 Pt Tmp 33.7 L Liter Flow 5.0 Radiology Impression Chest X-Ray 06/05/21 19:28 IMPRESSION: Bilateral pneumonia. Electronically Signed: Janes Burns MD at 19:56 EST , Service support , Assessment & Plan Assessment/Plan (1) Acute respiratory failure with hypoxia: (2) COVID-19: PLAN: Acute hypoxemic respiratory failure secondary to SARS- COV 2 Patient required high flow oxygen at the emergency department. Congestive limit oxygenation to keep oxygen saturation to at least 90%. Positive coronavirus test outpatient. Impression of chest x-ray by radiologist: Bilateral pneumonia. Actual chest x-ray image was independently interpreted. I agree with radiologist interpretation. Lactic acid was 2.6, like secondary to hypoxemia, trend. Procalcitonin ordered Review of CBC showed white count of 13.0 with bandemia, neutrophilia and lymphopenia. Decadron ordered. Patient is outside window of remdesivir. Tylenol for fever SUSANNE Review of labs showed creatinine of 1.84. His creatinine in June of this year and on 05/01/2020 was 1.18. Gentle IV hydration. Avoid nephrotoxins. Adjust home dose of allopurinol. Trend BMP. Hypertension Blood pressure is not within goal Cardizem continued. Trend blood pressure and adjust blood pressure medications. Bradycardia Parameters placed on Cardizem. DVT prophylaxis: Lovenox ordered Charges/Coding Visit Charges Inpatient E&M: 20561 Init Hosp L3
[2021-06-05 23:22] LABS: Reflex Lactate? Y
[2021-06-06] VITALS (22 sets, daily range): BP systolic 107–153; BP diastolic 62–88; PULSE 36–46; RESP 18–23; TEMP 36.2–37.4; O2SAT 90–98; BMI 31.9
[2021-06-06 00:10] LABS: Lactic Acid 1.7 mmol/L (0.4-1.9)
[2021-06-06] MEDS: Calcium Gluconate 1 GM/10 ML Vial IV (00:15)
--- NOTE | 2021-06-06 00:52 | PCS.PANDOC ---
PANDEMIC DOCUMENTATION INITIATED: Date: 06/06/2021 Time: 44
[2021-06-06] MEDS: 0.9% Normal Saline 1,000 ML 75 ML IV ×2 (01:25→15:40)
[2021-06-06] MEDS: 0.9% Saline Lock 10 ML Syringe IV (01:25)
[2021-06-06 07:14] LABS: Absolute Lymphocyte Count 1.16 X10^3/uL (0.83-4.51); Basophil# 0.02 X10^3/uL; Basophil% 0.1 % (0-1); Hematocrit 43.7 % (40-54); Hemoglobin 14.7 g/dL (13.0-16.5); Lymphocyte # 1.16 X10^3/ul (0.83-4.51); Lymphocyte % 8.5 % (19-41); Mean Corp Hgb Conc 33.6 g/dL (32-36); Mean Corpuscular Hgb 30.9 pg (27.0-32.0); Mean Corpuscular Volume 91.8 fL (80-94); Mean Platelet Vol. 12.3 fl (6.2-12.0); Monocyte# 0.24 X10^3/uL; Monocyte% 1.8 % (0-10); NRBC Flagged by Analyzer 0.1 % (0-5); Neutrophil # 12.01 X10^3/uL (2.7-7.7); Neutrophil % 87.7 % (47-70); POSITIVE MORPHOLOGY YES; Platelet Count 251 K/mm3 (150-450); RBC Distribution Width CV 12.7 % (11.6-14.6); RBC Distribution Width SD 42.7 fl (35.1-43.9); Red Blood Count 4.76 M/mm3 (4.6-6.2); White Blood Count 13.7 K/mm3 (4.4-11.0)
[2021-06-06 07:22] LABS: Differential Indicated SCAN CRITERIA MET
[2021-06-06 08:03] LABS: ALB/GLOB Ratio 0.5 RATIO (0.9-2.4); AST(SGOT) 105 U/L (15-37); Alanine Aminotransfer ALT/SGPT 98 U/L (16-61); Albumin, Serum 2.7 g/dL (3.2-5.0); Alkaline Phosphatase 92 U/L (45-117); Anion Gap 11 (5-15); BUN 40 mg/dL (7-18); BUN/Creat Ratio 22.7 RATIO (10-20); Calcium,Total 9.1 mg/dL (8.5-10.1); Chloride 107 mmol/L (98-107); Creatinine, Serum 1.76 mg/dL (0.70-1.30); EST Glomerular Filtration Rate 44 mL/min (>60); Est Glom Filt Rate - Afr Amer 53 mL/min (>60); Estimated Creatinine Clearance 46.42 ml/min; Globulin 5.9 g/dL (2.2-4.2); Glucose 174 mg/dL (74-106); Protein, Total 8.6 g/dL (6.4-8.2); Sodium Level 140 mmol/L (136-145)
[2021-06-06 08:06] LABS: Atypical Lymphocyte 1+ %
[2021-06-06 08:17] LABS: Procalcitonin 0.56 ng/mL (0.00-0.09)
[2021-06-06 08:59] LABS: D-Dimer Quantitative (DVT/PE) 2.26 FEU/ug/m (0.27-0.49)
[2021-06-06] MEDS: Enoxaparin 30 MG/0.3 ML Syringe SC (09:28)
[2021-06-06] MEDS: Allopurinol 100 MG Tablet PO ×2 (09:28→21:33)
[2021-06-06] MEDS: dexAMETHasone 2 MG TABLET 6 MG PO (09:28)
--- NOTE | 2021-06-06 10:51 | PN.HOSP_ITS ---
Subjective Subjective Increased oxygen requirements. Objective Data Objective Data Vital Signs: Vital Signs Temp Pulse Resp BP Pulse Ox 36.4 C L 44 L 20 H 153/88 H 96 06/06/21 09:18 06/06/21 09:22 06/06/21 09:18 06/06/21 09:18 06/06/21 09:33 Oxygen Flow Rate (L/min) 14 Oxygen Delivery Method Nasal Cannula Weight: 92.533 kg Body Mass Index (BMI) 31.9 Intake & Output: Intake and Output for Last 24 Hours 06/04/21 06/05/21 06/06/21 23:59 23:59 23:59 Intake Total 1400 / 1400 Balance 1400 / 1400 Lab / Micro Data Result Diagrams: 06/06/21 06:33 06/06/21 06:33 Labs: Laboratory Results - last 24 hr 06/05/21 19:15: WBC 13.0 H, RBC 4.56 L, Hgb 13.9, Hct 40.7, MCV 89.3, MCH 30.5, MCHC 34.2, RDW Std Deviation 40.2, RDW Coeff of Moshe 12.4, Plt Count 242, MPV 12.0, Immature Gran % (Auto) 2.200 H, Neut % (Auto) 86.8 H, Lymph % (Auto) 7.8 L , [place] % (Auto) 3.0, Eos % (Auto) 0.0, Baso % (Auto) 0.2, Absolute Neuts (auto) 11.3 H, Absolute Lymphs (auto) 1.02, Nucleated RBC % 0, Platelet Estimate ADEQUATE, RBC Morphology N CHROM, Anisocytosis RARE 06/05/21 19:15: PT 14.1, INR 1.2, APTT 34.7 06/05/21 19:15: Sodium 137, Potassium 4.0, Chloride 104, Carbon Dioxide 22.0, Anion Gap 11, BUN 36 H, Creatinine 1.84 H, Estim Creat Clear Calc 44.41, Est GFR (MDRD) Af Amer 50 L, Est GFR (MDRD) Non-Af 41 L, BUN/Creatinine Ratio 19.6, Glucose 133 H, Calcium 8.9, Total Bilirubin 0.80, AST 112 H, ALT 87 H, Alkaline Phosphatase 87, Total Protein 8.3 H, Albumin 2.6 L, Globulin 5.7 H, Albumin/Globulin Ratio 0.5 L 06/05/21 19:15: Lactic Acid 2.6 H* 06/05/21 23:31: Lactic Acid 1.7 06/06/21 06:33: Procalcitonin 0.56 H 06/06/21 06:33: WBC 13.7 H, RBC 4.76, Hgb 14.7, Hct 43.7, MCV 91.8, MCH 30.9, MCHC 33.6, RDW Std Deviation 42.7, RDW Coeff of Moshe 12.7, Plt Count 251, MPV 12.3 H, Immature Gran % (Auto) 1.900 H, Neut % (Auto) 87.7 H, Lymph % (Auto) 8.5 L, [place] % (Auto) 1.8, Eos % (Auto) 0.0, Baso % (Auto) 0.1, Absolute Neuts (auto) 12.0 H, Absolute Lymphs (auto) 1.16, Nucleated RBC % 0.1, Atypical Lymphocytes 1+ 06/06/21 06:33: Sodium 140, Potassium 4.0, Chloride 107, Carbon Dioxide 22.0, Anion Gap 11, BUN 40 H, Creatinine 1.76 H, Estim Creat Clear Calc 46.42, Est GFR (MDRD) Af Amer 53 L, Est GFR (MDRD) Non-Af 44 L, BUN/Creatinine Ratio 22.7 H, Glucose 174 H, Calcium 9.1, Total Bilirubin 0.80, AST 105 H, ALT 98 H, Alkaline Phosphatase 92, Total Protein 8.6 H, Albumin 2.7 L, Globulin 5.9 H, Albumin/Globulin Ratio 0.5 L 06/06/21 07:38: D-Dimer Quant (PE/DVT) 2.26 H* ABG Data ABG results: ABG 06/05/21 19:18 Specimen Type DOROTHY VBG pH 7.43 H VBG pO2 32 VBG HCO3 23 VBG Total CO2 24 VBG O2 Sat (Calc) 63 VBG Base Excess -2 L POC Mix VBG pCO2 Pt Tmp 33.7 L Liter Flow 5.0 Radiography Diagnostic Testing: Radiology Impression Chest X-Ray 06/05/21 19:28 IMPRESSION: Bilateral pneumonia. Electronically Signed: Janes Burns MD at 19:56 EST , Service support , Physical Exam Const alert and no apparent distress HEENT head/scalp atraumatic Head and Scalp: normocephalic Resp normal respiratory effort, no retractions, no use of accessory muscles and clear to auscultation bilaterally Cardio regular rate, regular rhythm, S1 normal heart sound and S2 normal heart sound GI normal to inspection, nondistended, normoactive bowel sounds, soft to palpation, non-tender and non-distended Extremity normal to inspection Assessment & Plan Assessment/Plan (1) Acute respiratory failure with hypoxia: (2) Pneumonia due to 2019-nCoV: (3) Acute kidney injury: PLAN: 1. acute respiratory failure 2/2 COVID 19 on 14 liters encouraged IS and flutter valve explained to pt that he could get worse. He is ok with intubation if the alternative is . D-dimer elevated, check CTA to r/o PE 2. Acute COVID 19 unvaccinated. onset 05/24, quarantine through 06/13 on dexamethasone out of the window for remdesivir 3. Acute kidney injury monitor avoid nephrotoxic agents. 4. VTE prophylaxis: LMWH Charges/Coding Visit Charges Inpatient E&M: 84620 Subs Hosp L2
--- NOTE | 2021-06-06 14:00 | CASEMGMT ---
COREY IRVIN PAINTING MANAGER CM to room to meet with patient for initial transition planning/care coordination assessment. COREY IRVIN introduced self and role at [facility]. Pt voices understanding and consents to assessment at this time. Pt resting in bed in no distress at this time. Pt is A/O at this time and answers all questions appropriately. Care providers, pharmacy, and demographics verified/updated at this time. COVID testing done @ [facility] PCP: MARIBELL Higgins Specialists: Patt Marquez--cardiology in [place]. Sees someone for gout in [place], but does not remember name of MD. [facility] [employer] Prescription Benefit: Yes Living Will/HPOA: Pt does not currently have LW/HCPOA and declines info at this time. LNOK: Sister, Yun Conway. Sig Other, Anita Rockwell. Living Arrangements: Lives w/sister in one-story home w/basement. 5 steps to enter. Independent. Manages own medications and appts. Sister has not been ill. Pt has been self isolating at home prior to admission. They only have one bathroom. Advised to disinfect after each use. Family/friends able to bring groceries and supplies if needed. Transportation: Pt states drives self and states no transportation concerns at this time. DME: Has available but does not use: W/C, cane, walker, shower chair. Does not have pulse ox. Recommended to get. Does not have home O2. Reviewed list of local DME companies. Pt has no preference HHC/SNF:Has been to a SNF after hip surgery. No hx of HHC. Denies need for HHC. Pt wishes to return home and states has no concerns with going home at time of discharge. PCM to follow for home oxygen needs and any further discharge planning/needs. Pt voices no further concerns/needs at this time. Advised pt to ask for CM if any further questions/concerns/needs arise. Voices understanding. PLAN: Home. Follow for home O2 needs @ discharge. Alen SHEETS RN, CM
[2021-06-06] MEDS: Enoxaparin 100 MG/ML Syringe 90 MG SC (17:44)
[2021-06-07] VITALS (14 sets, daily range): BP systolic 119–147; BP diastolic 69–97; PULSE 35–59; RESP 18–20; TEMP 36.4–36.7; O2SAT 92–97
[2021-06-07] MEDS: Enoxaparin 100 MG/ML Syringe 90 MG SC ×2 (05:12→17:11)
[2021-06-07] MEDS: 0.9% Normal Saline 1,000 ML 75 ML IV ×2 (05:12→20:40)
[2021-06-07 07:30] LABS: Absolute Lymphocyte Count 1.27 X10^3/uL (0.83-4.51); Absolute Neutrophil Count 15.8 X10^3/uL (2.0-7.7); Basophil# 0.02 X10^3/uL; Basophil% 0.1 % (0-1); Hematocrit 39.5 % (40-54); Hemoglobin 13.4 g/dL (13.0-16.5); Lymphocyte # 1.27 X10^3/ul (0.83-4.51); Lymphocyte % 7.1 % (19-41); Mean Corp Hgb Conc 33.9 g/dL (32-36); Mean Corpuscular Volume 91.4 fL (80-94); Mean Platelet Vol. 12.5 fl (6.2-12.0); Monocyte# 0.48 X10^3/uL; Monocyte% 2.7 % (0-10); NRBC Flagged by Analyzer 0 % (0-5); Neutrophil # 15.82 X10^3/uL (2.7-7.7); Neutrophil % 88.3 % (47-70); Platelet Count 257 K/mm3 (150-450); RBC Distribution Width CV 12.8 % (11.6-14.6); RBC Distribution Width SD 42.9 fl (35.1-43.9); Red Blood Count 4.32 M/mm3 (4.6-6.2); White Blood Count 17.9 K/mm3 (4.4-11.0)
[2021-06-07 08:06] LABS: ALB/GLOB Ratio 0.4 RATIO (0.9-2.4); AST(SGOT) 86 U/L (15-37); Alanine Aminotransfer ALT/SGPT 100 U/L (16-61); Albumin, Serum 2.2 g/dL (3.2-5.0); Alkaline Phosphatase 79 U/L (45-117); Anion Gap 9 (5-15); BUN 44 mg/dL (7-18); BUN/Creat Ratio 36.4 RATIO (10-20); Calcium,Total 8.6 mg/dL (8.5-10.1); Chloride 109 mmol/L (98-107); Creatinine, Serum 1.21 mg/dL (0.70-1.30); EST Glomerular Filtration Rate 67 mL/min (>60); Est Glom Filt Rate - Afr Amer 81 mL/min (>60); Estimated Creatinine Clearance 67.53 ml/min; Glucose 133 mg/dL (74-106); Potassium 4.2 mmol/L (3.5-5.1); Protein, Total 7.2 g/dL (6.4-8.2); Sodium Level 141 mmol/L (136-145)
[2021-06-07] MEDS: Allopurinol 100 MG Tablet PO ×2 (09:56→20:39)
[2021-06-07] MEDS: dexAMETHasone 2 MG TABLET 6 MG PO (09:57)
--- NOTE | 2021-06-07 13:32 | PCM.PN.HOSP ---
Subjective Subjective Breathing well. Tolerating 9l/m. Objective Data Objective Data Vital Signs: Vital Signs Temp Pulse Resp BP Pulse Ox 36.7 C 59 L 18 119/88 H 92 06/07/21 09:45 06/07/21 09:45 06/07/21 09:51 06/07/21 09:45 06/07/21 09:57 Oxygen Flow Rate (L/min) 9 Oxygen Delivery Method Nasal Cannula Weight: 92.533 kg Body Mass Index (BMI) 31.9 Intake & Output: Intake and Output for Last 24 Hours 06/05/21 06/06/21 06/07/21 23:59 23:59 23:59 Intake Total 2900 / 2900 1000 / 1000 Output Total 400 / 400 Balance 2900 / 2900 600 / 600 Lab / Micro Data Result Diagrams: 06/07/21 06:10 06/07/21 06:10 Labs: Laboratory Results - last 24 hr 06/07/21 06:10: WBC 17.9 H, RBC 4.32 L, Hgb 13.4, Hct 39.5 L, MCV 91.4, MCH 31.0, MCHC 33.9, RDW Std Deviation 42.9, RDW Coeff of Moshe 12.8, Plt Count 257, MPV 12.5 H, Immature Gran % (Auto) 1.800 H, Neut % (Auto) 88.3 H, Lymph % (Auto) 7.1 L, [place] % (Auto) 2.7, Eos % (Auto) 0.0, Baso % (Auto) 0.1, Absolute Neuts (auto) 15.8 H, Absolute Lymphs (auto) 1.27, Nucleated RBC % 0 06/07/21 06:10: Sodium 141, Potassium 4.2, Chloride 109 H, Carbon Dioxide 23.0, Anion Gap 9, BUN 44 H, Creatinine 1.21, Estim Creat Clear Calc 67.53, Est GFR (MDRD) Af Amer 81, Est GFR (MDRD) Non-Af 67, BUN/Creatinine Ratio 36.4 H, Glucose 133 H, Calcium 8.6, Total Bilirubin 0.30, AST 86 H, ALT 100 H, Alkaline Phosphatase 79, Total Protein 7.2, Albumin 2.2 L, Globulin 5.0 H, Albumin/Globulin Ratio 0.4 L Physical Exam Const alert and no apparent distress Exam Limitations: no limitations and altered mental status Resp normal respiratory effort, no retractions, no use of accessory muscles and clear to auscultation bilaterally Cardio regular rate, regular rhythm, S1 normal heart sound and S2 normal heart sound GI normal to inspection, nondistended, normoactive bowel sounds, soft to palpation, non-tender and non-distended Assessment & Plan Assessment/Plan (1) Acute respiratory failure with hypoxia: (2) Pneumonia due to 2019-nCoV: (3) Acute kidney injury: PLAN: 1. acute respiratory failure 2/2 COVID 19 on 14 liters encouraged IS and flutter valve explained to pt that he could get worse. He is ok with intubation if the alternative is . D-dimer elevated, check CTA to r/o PE wean oxygen as able hold furosemide challenge today and follow creatinine 06/08 2. Acute COVID 19 unvaccinated. onset 05/24, quarantine through 06/13 on dexamethasone out of the window for remdesivir 3. Acute kidney injury resolved monitor avoid nephrotoxic agents. 4. VTE prophylaxis: LMWH Charges/Coding Visit Charges Inpatient E&M: 59320 Subs Hosp L2
--- NOTE | 2021-06-07 13:34 | CT_ITS ---
STUDY: CTA CHEST REASON FOR EXAM: Male, 50 years old. dyspnea. COVID 19. Elevated D-dimer RADIATION DOSAGE (If Supplied By Facility): CTDIvol = ( 16.20 ) mGy, DLP = ( 497.91 ) mGycm TECHNIQUE: The examination was performed with the intravenous administration of IV 100mL Isovue-370. Post-processing of the angiographic images was performed, with multiplanar reformation and 3D reconstruction. Radiation Dose (provided by facility) CTDIvol (16.2 ) mGy, DLP ( 497.91) mGy-cm Individualized dose optimization techniques were used for this CT. COMPARISON: None. FINDINGS: Lines and tubes: 1. No tubes or life-support noted. No evidence of central venous access. 2. No pneumothorax. CTA: PULMONARY ARTERIES: There is normal configuration and contrast opacification of pulmonary outflow tract, main pulmonary arteries, segmental and intersegmental pulmonary arteries bilaterally without evidence of intraluminal filling defects. AORTIC ARCH: The aortic arch and descending aorta have normal configuration. No evidence of dissection or aneurysmal dilatation. HEART: Cardiac contour is normal, there is moderate cardiomegaly. No pericardial effusion. CT CHEST: LUNGS: [Extensive diffuse interstitial, groundglass, and patchy areas of alveolar infiltrate bilaterally greater on the RIGHT than LEFT. PLEURAL SPACES: Unremarkable, no effusion or pneumothorax.. MEDIASTINUM AND LYMPH NODES: Unremarkable. No significant adenopathy. BONES: Unremarkable ABDOMEN: Within normal limits. Other: None IMPRESSIONS: 1. No CTA evidence of pulmonary embolism. 2. No CTA evidence of aortic aneurysm or dissection 3. Cardiac contour is large. No pericardial effusion. 4. Extensive diffuse multilobar interstitial and groundglass infiltrate consistent with multilobar atypical pneumonia. Electronically Signed: Ramiro Zapien MD at 20:20 EST Tel , Service support , CT/CTA Chest W/WO Contrast
[2021-06-08] VITALS (16 sets, daily range): BP systolic 119–163; BP diastolic 76–93; PULSE 39–62; RESP 16–24; TEMP 36.6–37.3; O2SAT 92–98
[2021-06-08] MEDS: Enoxaparin 100 MG/ML Syringe 90 MG SC (04:35)
[2021-06-08] MEDS: 0.9% Saline Lock 10 ML Syringe IV ×2 (04:35→12:47)
[2021-06-08 09:00] LABS: Absolute Lymphocyte Count 0.98 X10^3/uL (0.83-4.51); Absolute Neutrophil Count 11.1 X10^3/uL (2.0-7.7); Basophil# 0.03 X10^3/uL; Basophil% 0.2 % (0-1); Hematocrit 40.2 % (40-54); Hemoglobin 13.3 g/dL (13.0-16.5); Lymphocyte # 0.98 X10^3/ul (0.83-4.51); Lymphocyte % 7.7 % (19-41); Mean Corp Hgb Conc 33.1 g/dL (32-36); Mean Corpuscular Hgb 30.4 pg (27.0-32.0); Mean Corpuscular Volume 91.8 fL (80-94); Mean Platelet Vol. 11.8 fl (6.2-12.0); Monocyte# 0.25 X10^3/uL; NRBC Flagged by Analyzer 0.3 % (0-5); Neutrophil % 87.7 % (47-70); POSITIVE MORPHOLOGY YES; Platelet Count 329 K/mm3 (150-450); RBC Distribution Width CV 12.8 % (11.6-14.6); RBC Distribution Width SD 43.3 fl (35.1-43.9); Red Blood Count 4.38 M/mm3 (4.6-6.2); White Blood Count 12.7 K/mm3 (4.4-11.0)
[2021-06-08 09:02] LABS: Differential Indicated SCAN CRITERIA MET
[2021-06-08 09:21] LABS: ALB/GLOB Ratio 0.4 RATIO (0.9-2.4); AST(SGOT) 52 U/L (15-37); Alanine Aminotransfer ALT/SGPT 93 U/L (16-61); Albumin, Serum 2.1 g/dL (3.2-5.0); Alkaline Phosphatase 73 U/L (45-117); Anion Gap 9 (5-15); BUN 30 mg/dL (7-18); BUN/Creat Ratio 29.7 RATIO (10-20); Calcium,Total 8.3 mg/dL (8.5-10.1); Chloride 111 mmol/L (98-107); Creatinine, Serum 1.01 mg/dL (0.70-1.30); EST Glomerular Filtration Rate 83 mL/min (>60); Est Glom Filt Rate - Afr Amer 100 mL/min (>60); Glucose 108 mg/dL (74-106); Protein, Total 7.1 g/dL (6.4-8.2); Sodium Level 142 mmol/L (136-145)
[2021-06-08 09:22] LABS: Differential Comment SCANNED
[2021-06-08] MEDS: dexAMETHasone 2 MG TABLET 6 MG PO (10:51)
[2021-06-08] MEDS: Allopurinol 100 MG Tablet PO ×2 (10:52→22:11)
[2021-06-08] MEDS: 0.9% Normal Saline 1,000 ML 75 ML IV ×2 (10:52→22:12)
[2021-06-08] MEDS: Furosemide 40 MG/4 ML Vial IV (12:47)
--- NOTE | 2021-06-08 14:54 | PN.HOSP_ITS ---
Subjective Subjective Increased oxygen requirements. Objective Data Objective Data Vital Signs: Vital Signs Temp Pulse Resp BP Pulse Ox 37.3 C 52 L 18 121/76 H 96 06/08/21 14:33 06/08/21 14:33 06/08/21 14:33 06/08/21 14:33 06/08/21 14:33 Oxygen Flow Rate (L/min) 55 Oxygen Delivery Method Airvo Weight: 92.533 kg Body Mass Index (BMI) 31.9 Intake & Output: Intake and Output for Last 24 Hours 06/06/21 06/07/21 06/08/21 23:59 23:59 23:59 Intake Total 2900 / 2900 2000 / 2250 1400 / 1400 Output Total 400 / 800 400 / 400 Balance 2900 / 2900 1600 / 1450 1000 / 1000 Lab / Micro Data Result Diagrams: 06/08/21 08:44 06/08/21 08:44 Labs: Laboratory Results - last 24 hr 06/08/21 08:44: WBC 12.7 H, RBC 4.38 L, Hgb 13.3, Hct 40.2, MCV 91.8, MCH 30.4, MCHC 33.1, RDW Std Deviation 43.3, RDW Coeff of Moshe 12.8, Plt Count 329, MPV 11.8, Immature Gran % (Auto) 2.400 H, Neut % (Auto) 87.7 H, Lymph % (Auto) 7.7 L , [place] % (Auto) 2.0, Eos % (Auto) 0.0, Baso % (Auto) 0.2, Absolute Neuts (auto) 11.1 H, Absolute Lymphs (auto) 0.98, Nucleated RBC % 0.3, Differential Comment SCANNED 06/08/21 08:44: Sodium 142, Potassium 4.0, Chloride 111 H, Carbon Dioxide 22.0, Anion Gap 9, BUN 30 H, Creatinine 1.01, Estim Creat Clear Calc 80.90, Est GFR (MDRD) Af Amer 100, Est GFR (MDRD) Non-Af 83, BUN/Creatinine Ratio 29.7 H, Glucose 108 H, Calcium 8.3 L, Total Bilirubin 0.30, AST 52 H, ALT 93 H, Alkaline Phosphatase 73, Total Protein 7.1, Albumin 2.1 L, Globulin 5.0 H, Albumin/Globulin Ratio 0.4 L Micro: Microbiology 06/08/21 11:00 Urine, Clean Catch Streptococcus pneumoniae Antigen (M - Final 06/08/21 11:00 Urine, Clean Catch Legionella Antigen - Final Radiography Diagnostic Testing: Radiology Impression Chest CTA 06/07/21 13:34 Physical Exam Const Constitutional Narrative: on airvo. awake. alert. HEENT head/scalp atraumatic Head and Scalp: normocephalic Resp normal respiratory effort and no retractions Resp Narrative: coarse breath sounds bilaterally Cardio regular rate, regular rhythm, S1 normal heart sound and S2 normal heart sound GI normal to inspection, nondistended, normoactive bowel sounds Assessment & Plan Assessment/Plan (1) Acute respiratory failure with hypoxia: (2) Pneumonia due to 2019-nCoV: (3) Acute kidney injury: PLAN: 1. acute respiratory failure worsening 2/2 COVID 19 on Airvo encouraged IS and flutter valve explained to pt that he could get worse. He is ok with intubation if the alternative is . D-dimer elevated, check CTA to r/o PE wean oxygen as able furosemide challenge check bacterial pneumonia work up 2. Acute COVID 19 unvaccinated. onset 05/24, quarantine through 06/13 on dexamethasone out of the window for remdesivir 3. Acute kidney injury resolved monitor avoid nephrotoxic agents. 4. VTE prophylaxis: LMWH Charges/Coding Visit Charges Inpatient E&M: 84851 Subs Hosp L2
[2021-06-08] MEDS: Enoxaparin 30 MG/0.3 ML Syringe SC (17:01)
[2021-06-08] MEDS: Acetaminophen 325 MG Tablet 650 MG PO (22:13)
[2021-06-09] VITALS (16 sets, daily range): BP systolic 113–182; BP diastolic 67–92; PULSE 42–60; RESP 18–20; TEMP 36.4–36.6; O2SAT 46–99
[2021-06-09 07:20] LABS: Absolute Lymphocyte Count 1.19 X10^3/uL (0.83-4.51); Absolute Neutrophil Count 8.7 X10^3/uL (2.0-7.7); Basophil# 0.05 X10^3/uL; Basophil% 0.5 % (0-1); Eosinophil# 0.02 X10^3/uL; Eosinophils% 0.2 % (0-5); Hemoglobin 12.8 g/dL (13.0-16.5); Lymphocyte # 1.19 X10^3/ul (0.83-4.51); Lymphocyte % 11.2 % (19-41); Mean Corp Hgb Conc 33.7 g/dL (32-36); Mean Corpuscular Hgb 30.5 pg (27.0-32.0); Mean Corpuscular Volume 90.5 fL (80-94); Mean Platelet Vol. 11.9 fl (6.2-12.0); Monocyte# 0.27 X10^3/uL; Monocyte% 2.6 % (0-10); NRBC Flagged by Analyzer 0 % (0-5); Neutrophil # 8.72 X10^3/uL (2.7-7.7); Neutrophil % 82.4 % (47-70); Platelet Count 327 K/mm3 (150-450); RBC Distribution Width CV 12.4 % (11.6-14.6); RBC Distribution Width SD 41.2 fl (35.1-43.9); White Blood Count 10.6 K/mm3 (4.4-11.0)
[2021-06-09 07:52] LABS: ALB/GLOB Ratio 0.4 RATIO (0.9-2.4); AST(SGOT) 36 U/L (15-37); Alanine Aminotransfer ALT/SGPT 67 U/L (16-61); Albumin, Serum 1.9 g/dL (3.2-5.0); Alkaline Phosphatase 66 U/L (45-117); Anion Gap 6 (5-15); BUN 23 mg/dL (7-18); BUN/Creat Ratio 26.5 RATIO (10-20); Calcium,Total 8.2 mg/dL (8.5-10.1); Chloride 113 mmol/L (98-107); Creatinine, Serum 0.87 mg/dL (0.70-1.30); EST Glomerular Filtration Rate 98 mL/min (>60); Est Glom Filt Rate - Afr Amer 119 mL/min (>60); Estimated Creatinine Clearance 93.92 ml/min; Glucose 104 mg/dL (74-106); Potassium 4.1 mmol/L (3.5-5.1); Protein, Total 6.9 g/dL (6.4-8.2); Sodium Level 142 mmol/L (136-145)
[2021-06-09] MEDS: dexAMETHasone 2 MG TABLET 6 MG PO (08:57)
[2021-06-09] MEDS: Enoxaparin 30 MG/0.3 ML Syringe SC ×2 (09:00→20:01)
[2021-06-09] MEDS: Allopurinol 100 MG Tablet PO ×2 (09:00→20:01)
--- NOTE | 2021-06-09 09:09 | NURSING ---
PT INSTRUCTED ON I.S. & PEP. PT NEEDS MUCH ENCOURAGEMENT. HE IS BARELY REACHING 500 ON I.S. SAYS IT'S DIFFICULT TO USE BECAUSE IT MAKES ME COUGH. EXPLAINED TO PT THIS IS WHAT WE WANT TO EXPAND LUNGS. THIS RN IS EXPLAINING THIS TO PT, PT SEEMS UNINTERESTED.
[2021-06-09] MEDS: 0.9% Normal Saline 1,000 ML 75 ML IV (12:19)
[2021-06-09] MEDS: hydrALAZINE 20 MG/ML Vial 10 MG IV (16:09)
[2021-06-09] MEDS: 0.9% Saline Lock 10 ML Syringe IV ×2 (16:09→18:18)
--- NOTE | 2021-06-09 17:39 | PN.HOSP_ITS ---
Subjective Subjective Worsening of hypoxia. Patient on air Vo. Improvement in creatinine. Patient has cough with mild chest congestion and wheezing. Objective Data Objective Data Vital Signs: Vital Signs Temp Pulse Resp BP Pulse Ox 97.6 F L 48 L 20 H 182/90 H 94 06/09/21 15:00 06/09/21 16:09 06/09/21 15:00 06/09/21 16:09 06/09/21 15:00 Oxygen Flow Rate (L/min) 60 Oxygen Delivery Method Airvo Weight: 204 lb Body Mass Index (BMI) 31.9 Intake & Output: Intake and Output for Last 24 Hours 06/07/21 06/08/21 06/09/21 23:59 23:59 23:59 Intake Total 2000 / 2250 2250 / 2250 1480 / 1480 Output Total 400 / 800 400 / 400 550 / 550 Balance 1600 / 1450 1850 / 1850 930 / 930 Lab / Micro Data Result Diagrams: 06/09/21 06:40 06/09/21 06:40 Labs: Laboratory Results - last 24 hr 06/09/21 06:40: WBC 10.6, RBC 4.20 L, Hgb 12.8 L, Hct 38.0 L, MCV 90.5, MCH 30.5, MCHC 33.7, RDW Std Deviation 41.2, RDW Coeff of Moshe 12.4, Plt Count 327, MPV 11.9, Immature Gran % (Auto) 3.100 H, Neut % (Auto) 82.4 H, Lymph % (Auto) 11.2 L, [place] % (Auto) 2.6, Eos % (Auto) 0.2, Baso % (Auto) 0.5, Absolute Neuts (auto) 8.7 H, Absolute Lymphs (auto) 1.19, Nucleated RBC % 0 06/09/21 06:40: Sodium 142, Potassium 4.1, Chloride 113 H, Carbon Dioxide 23.0, Anion Gap 6, BUN 23 H, Creatinine 0.87, Estim Creat Clear Calc 93.92, Est GFR (MDRD) Af Amer 119, Est GFR (MDRD) Non-Af 98, BUN/Creatinine Ratio 26.5 H, Glucose 104, Calcium 8.2 L, Total Bilirubin 0.50, AST 36, ALT 67 H, Alkaline Phosphatase 66, Total Protein 6.9, Albumin 1.9 L, Globulin 5.0 H, Albumin/Globulin Ratio 0.4 L Micro: Microbiology 06/08/21 20:14 Sputum, Expectorated/Coughed Gram Stain - Preliminary 06/08/21 20:14 Sputum, Expectorated/Coughed Respiratory Culture - Preliminary Alpha Hemolytic Streptococcus 06/08/21 11:00 Urine, Clean Catch Streptococcus pneumoniae Antigen (M - Final 06/08/21 11:00 Urine, Clean Catch Legionella Antigen - Final Physical Exam Narrative General: Alert, Oriented x3, Cooperative HEENT: Atraumatic, PERRLA, EOMI, Normocephalic Oral: No Gingival or Mucosal Lesions/ Ulcerations Neck: Supple, No JVD, Negative Carotid Bruits Lungs: Air entry diminished in bilateral lung bases. Bilateral expiratory rhonchi and wheezing. Severe hypoxia. Dyspnea on exertion. Cardiovascular: Sinus bradycardia, Normal S1, Normal S2, No murmurs Abdomen: Bowel Sounds Present, Soft, Non Tender, Non-Distended : No renal angle tenderness. No suprapubic tenderness. Extremities: No edema, Capillary Refill Less than 3 Seconds Skin: No rashes, No breakdown Musculoskeletal: No Tenderness to Palpation of Joints or Extremities Neurological: Cranial nerves II-XII grossly intact, DTR 2+/4 and Symmetrical, Neuro grossly intact Psych/Mental Status: Normal Affect, Appropriate. Assessment & Plan Assessment/Plan (1) Acute respiratory failure with hypoxia: (2) Pneumonia due to 2019-nCoV: (3) Acute kidney injury: PLAN: 1. acute respiratory failure secondary to bilateral COVID-19 pneumonia with bacterial superinfection/pneumonia: Patient sputum culture showing 3+ WBC, 3+ gram-positive cocci in clusters, 2+ gram-negative rods. Prelim sputum culture 3+ alphahemolytic streptococci. Started on IV ceftriaxone 2 g daily. Continue air Vo, incentive spirometry and PEP. CT chest negative for PE. Bilateral interstitial pulmonary infiltrates. Urinary antigens are negative. D-dimer elevated. Consult ID to see indication for baricitinib. Furosemide challenge as needed. Positive fluid balance 2. Acute COVID 19 unvaccinated. onset 05/24, quarantine through 06/13 on dexamethasone out of the window for remdesivir 3. Acute kidney injury resolved. Creatinine improved from 1.84-0.8 4. VTE prophylaxis: LMWH Charges/Coding Visit Charges Inpatient E&M: 00310 Subs Hosp L2
[2021-06-09] MEDS: Furosemide 40 MG/4 ML Vial IV (18:18)
[2021-06-10] VITALS (22 sets, daily range): BP systolic 111–127; BP diastolic 69–87; PULSE 42–58; RESP 18–24; TEMP 36.6–36.8; O2SAT 80–97
[2021-06-10 07:15] LABS: Hematocrit 37.7 % (40-54); Hemoglobin 12.6 g/dL (13.0-16.5); Mean Corp Hgb Conc 33.4 g/dL (32-36); Mean Corpuscular Hgb 30.1 pg (27.0-32.0); Mean Platelet Vol. 11.7 fl (6.2-12.0); POSITIVE COUNT YES; POSITIVE MORPHOLOGY YES; Platelet Count 356 K/mm3 (150-450); RBC Distribution Width CV 12.6 % (11.6-14.6); RBC Distribution Width SD 41.7 fl (35.1-43.9); Red Blood Count 4.19 M/mm3 (4.6-6.2); White Blood Count 13.4 K/mm3 (4.4-11.0)
[2021-06-10 07:23] LABS: Differential Indicated MANUAL DIFF
[2021-06-10 07:44] LABS: ALB/GLOB Ratio 0.4 RATIO (0.9-2.4); AST(SGOT) 33 U/L (15-37); Alanine Aminotransfer ALT/SGPT 52 U/L (16-61); Albumin, Serum 1.9 g/dL (3.2-5.0); Alkaline Phosphatase 62 U/L (45-117); Anion Gap 7 (5-15); BUN 24 mg/dL (7-18); BUN/Creat Ratio 25.9 RATIO (10-20); Calcium,Total 8.5 mg/dL (8.5-10.1); Chloride 110 mmol/L (98-107); Creatinine, Serum 0.93 mg/dL (0.70-1.30); EST Glomerular Filtration Rate 91 mL/min (>60); Est Glom Filt Rate - Afr Amer 110 mL/min (>60); Estimated Creatinine Clearance 87.86 ml/min; Globulin 4.7 g/dL (2.2-4.2); Glucose 99 mg/dL (74-106); Potassium 3.9 mmol/L (3.5-5.1); Protein, Total 6.6 g/dL (6.4-8.2); Sodium Level 142 mmol/L (136-145)
[2021-06-10] MEDS: dexAMETHasone 2 MG TABLET 6 MG PO (08:32)
[2021-06-10] MEDS: Enoxaparin 30 MG/0.3 ML Syringe SC ×2 (08:33→20:10)
[2021-06-10] MEDS: Allopurinol 100 MG Tablet PO ×2 (08:33→20:10)
--- NOTE | 2021-06-10 09:00 | NURSING ---
pt sitting on edge of bed eating breakfast, alarming 80%, encouraged deep breathing. pt does not appear to be in distress. airvo increased to 60L 80% fio2 with improvement to O2 saturation. encouraged continued deep breathing and I/S
--- NOTE | 2021-06-10 09:08 | PN.HOSP_ITS ---
Subjective Subjective Patient on Arava. Short of breath. Wheezing. Objective Data Objective Data Vital Signs: Vital Signs Temp Pulse Resp BP Pulse Ox 98.1 F 53 L 20 H 118/69 87 06/10/21 08:17 06/10/21 08:17 06/10/21 08:55 06/10/21 08:17 06/10/21 09:00 Oxygen Flow Rate (L/min) 60 Oxygen Delivery Method Airvo Weight: 204 lb Body Mass Index (BMI) 31.9 Intake & Output: Intake and Output for Last 24 Hours 06/08/21 06/09/21 06/10/21 23:59 23:59 23:59 Intake Total 2250 / 2250 2568.75 / 2568.75 600 / 600 Output Total 400 / 400 1200 / 1200 2000 / 2000 Balance 1850 / 1850 1368.75 / 1368.75 -1400 / -1400 Lab / Micro Data Result Diagrams: 06/10/21 Unknown 06/10/21 06:40 Labs: Laboratory Results - last 24 hr 06/10/21 06:40: Sodium 142, Potassium 3.9, Chloride 110 H, Carbon Dioxide 25.0, Anion Gap 7, BUN 24 H, Creatinine 0.93, Estim Creat Clear Calc 87.86, Est GFR (MDRD) Af Amer 110, Est GFR (MDRD) Non-Af 91, BUN/Creatinine Ratio 25.9 H, Glucose 99, Calcium 8.5, Total Bilirubin 0.30, AST 33, ALT 52, Alkaline Phosphatase 62, Total Protein 6.6, Albumin 1.9 L, Globulin 4.7 H, Alb umin/Globulin Ratio 0.4 L 06/10/21 : WBC 13.4 H, RBC 4.19 L, Hgb 12.6 L, Hct 37.7 L, MCV 90.0, MCH 30.1, MCHC 33.4, RDW Std Deviation 41.7, RDW Coeff of Moshe 12.6, Plt Count 356, MPV 11.7, Neut % (Auto) Not Reportable Micro: Microbiology 06/08/21 20:14 Sputum, Expectorated/Coughed Gram Stain - Preliminary 06/08/21 20:14 Sputum, Expectorated/Coughed Respiratory Culture - Preliminary Alpha Hemolytic Streptococcus 06/08/21 11:00 Urine, Clean Catch Streptococcus pneumoniae Antigen (M - Final 06/08/21 11:00 Urine, Clean Catch Legionella Antigen - Final Physical Exam Narrative General: Alert, Oriented x3, Cooperative HEENT: Atraumatic, PERRLA, EOMI, Normocephalic Oral: No Gingival or Mucosal Lesions/ Ulcerations Neck: Supple, No JVD, Negative Carotid Bruits Lungs: Air entry diminished in bilateral lungs. Bilateral expiratory rhonchi and wheezing. Severe hypoxia and VOGEL and dyspnea at rest. Cardiovascular: Sinus bradycardia, Normal S1, Normal S2, No murmurs Abdomen: Bowel Sounds Present, Soft, Non Tender, Non-Distended : No renal angle tenderness. No suprapubic tenderness. Extremities: No edema, Capillary Refill Less than 3 Seconds Skin: No rashes, No breakdown Musculoskeletal: No Tenderness to Palpation of Joints or Extremities Neurological: Cranial nerves II-XII grossly intact, DTR 2+/4 and Symmetrical, Neuro grossly intact Psych/Mental Status: Normal Affect, Appropriate. HEENT head/scalp atraumatic Resp normal respiratory effort, no retractions and clear to auscultation bilaterally Resp Narrative: coarse breath sounds bilaterally Cardio regular rate, regular rhythm, S1 normal heart sound and S2 normal heart sound GI normal to inspection, nondistended, normoactive bowel sounds, soft to palpation, non-tender and non-distended Extremity normal to inspection Assessment & Plan Assessment/Plan (1) Acute respiratory failure with hypoxia: (2) Pneumonia due to 2019-nCoV: (3) Acute kidney injury: PLAN: 1. acute respiratory failure secondary to bilateral COVID-19 pneumonia with bacterial superinfection/pneumonia: Patient sputum culture showing 3+ WBC, 3+ gram-positive cocci in clusters, 2+ gram-negative rods. Prelim sputum culture 3+ alphahemolytic streptococci. Started on IV ceftriaxone 2 g daily. Continue air Vo, incentive spirometry and PEP. CT chest negative for PE. Bilateral interstitial pulmonary infiltrates. Urinary antigens are negative. D-dimer elevated. Consult ID to see indication for baricitinib. Furosemide challenge as needed. 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 Repeat chest x-ray. IV fluid was discontinued yesterday. Lasix was given. Repeat Lasix 20 mg IV 1 dose. BP 118/69. Ceftriaxone was added yesterday. ABG ordered. [employer] Engineer/pulmonary consult. Inflammatory markers ordered 2. Acute COVID 19 unvaccinated. onset 05/24, quarantine through 06/13 on dexamethasone out of the window for remdesivir 3. Acute kidney injury resolved. Creatinine improved from 1.84-0.8 4. VTE prophylaxis: LMWH Total time of the visit including total time spent in counseling or coordination of care, (more than 50% of the total time, spent in obtaining medical information from nurses and other ancillary care providers,explaining to the patient about labs, imaging, diagnosis and management), consultants, review of labs and imaging is 30 minutes. Charges/Coding Visit Charges Inpatient E&M: 47567 Subs Hosp L3
[2021-06-10 09:26] LABS: Lymphocyte 11 % (19-41); Metamyelocyte 1 % (0-1); Monocyte 4 % (0-10); Myelocyte 2 % (0-0); Neutrophil-Segmented 82 % (47-70); Total Cells Counted 100 (MANUAL DIFF)
--- NOTE | 2021-06-10 09:26 | PCS.PANDOC ---
PANDEMIC DOCUMENTATION INITIATED: Date: 02/10/2021 Time: 1900 emergency team nursing assignment sheet
[2021-06-10 09:27] LABS: Platelet Estimate ADEQUATE (ADEQ); Red Cell Morphology NORM C+C NORMAL (NORM C&C)
--- NOTE | 2021-06-10 10:23 | CON.PCM.ID_ITS ---
Assessment & Plan Assessment/Plan (1) COVID-19: PLAN: Sx since 05/27. Unvaccinated. On dex. On ceftriaxone for strep pneumonia. Was on 14L o2 06/06. Given duration of hypoxia and bacterial pneumonia, will not do baricitinib at this time. Will check CRP. Encouraged vaccine once out of iso. Isolate until 06/15. Thank you, will follow (2) Acute respiratory failure with hypoxia: (3) Acute kidney injury: HPI Consult Data Date of Consult: 06/10/21 HPI Narrative HPI Narrative: RAMILA SNYDER, is a 50 M who presented 06/05 with sx since 05/27. C/o cough, dyspnea, congestion, sore throat, loss of appetite. Has not had vaccine. Lives with sister, asymptomatic. Pulse ox was 50% on RA. Admitted here on dex, ceftriaxone, 14L O2. Feeling a little better, but now on airvo. Full ROS performed and neg except as noted above. [facility] Medical History Anemia Hypertension Rheumatoid arthritis Home Medications allopurinol 100 mg tablet 300 mg PO BID 09/11/19 [History Last Taken Unknown] diltiazem HCl 120 mg PO DAILY 05/14/20 [History Last Taken 08/06/20] sildenafil 50 mg tablet 50 mg PO PRN PRN tab 05/26/21 [History Last Taken Unknown] Allergy/AdvReac Type Severity Reaction Status Date / Time No Known Allergies Allergy Verified 06/05/21 11:02 Family History (Updated 06/05/21 @ 22:[address] Toni Burleson MD) Other Cancer Surgical History Hx of total hip arthroplasty Social History (Updated 06/05/21 @ 22:[address] Toni Burleson MD) household members: family Smoking Status: Never smoker substance use type: does not use Physical Exam Const alert, oriented x3 and no apparent distress General Appearance: cooperative Exam Limitations: no limitations HEENT normocephalic and head/scalp atraumatic Eyes PERRL and EOMs intact bilaterally Neck supple and No nodes Resp Auscultation: diminished lung sounds Cardio regular rate and regular rhythm GI normal to inspection, nondistended, normoactive bowel sounds Extremity no clubbing, cyanosis or edema Skin no rashes or lesions noted Neuro CN's II-XII intact bilaterally Lab / Micro Data Result Diagrams: 06/10/21 Unknown 06/10/21 06:40 Labs: Laboratory Results - last 24 hr 06/10/21 06:40: Sodium 142, Potassium 3.9, Chloride 110 H, Carbon Dioxide 25.0, Anion Gap 7, BUN 24 H, Creatinine 0.93, Estim Creat Clear Calc 87.86, Est GFR (MDRD) Af Amer 110, Est GFR (MDRD) Non-Af 91, BUN/Creatinine Ratio 25.9 H, Glucose 99, Calcium 8.5, Total Bilirubin 0.30, AST 33, ALT 52, Alkaline Phosphatase 62, Total Protein 6.6, Albumin 1.9 L, Globulin 4.7 H, Albumin/Globulin Ratio 0.4 L 06/10/21 : WBC 13.4 H, RBC 4.19 L, Hgb 12.6 L, Hct 37.7 L, MCV 90.0, MCH 30.1, MCHC 33.4, RDW Std Deviation 41.7, RDW Coeff of Moshe 12.6, Plt Count 356, MPV 11.7, Neut % (Auto) Not Reportable, Absolute Neuts (auto) 11.0 H, Absolute Lymphs (auto) 1.50, Total Counted 100, Neutrophils % (Manual) 82 H, Lymphocytes % (Manual) 11 L, Monocytes % (Manual) 4, Metamyelocytes % 1, Myelocytes % 2 H, Diff Path Review May foll, Platelet Estimate ADEQUATE, RBC Morphology NORM C+C Micro: Microbiology 06/08/21 20:14 Sputum, Expectorated/Coughed Gram Stain - Preliminary 06/08/21 20:14 Sputum, Expectorated/Coughed Respiratory Culture - Preliminary Appears to be normal respiratory mame. Further studies to follow.
[2021-06-10] MEDS: 0.9% Saline Lock 10 ML Syringe IV (10:58)
[2021-06-10] MEDS: Furosemide 20 MG/2 ML VIAL IV (10:58)
[2021-06-10 11:00] LABS: D-Dimer Quantitative (DVT/PE) 3.33 FEU/ug/m (0.27-0.49)
[2021-06-10 11:08] LABS: Procalcitonin 0.22 ng/mL (0.00-0.09)
[2021-06-10 11:12] LABS: CPK Total, Creatine Kinase 107 U/L (39-308)
[2021-06-10 11:30] LABS: BNP,B-Type NATRIURETIC PEPTIDE 29.4 pg/mL (0-100)
[2021-06-10 11:31] LABS: Allen Test Positive; Base Excess -3 mmol/L (-2 to +2); Bicarbonate 20.8 mmol/L (22-26); Blood Gas Specimen Type ART; FI02 80; PO2 61 mmHG (75-100); SITE R Brach; SO2 93 % (95-99); Total Carbon Dioxide 22 mmol/L; pCO2 27.3 mmHg (35-45); pH 7.49 (7.35-7.45)
--- NOTE | 2021-06-10 12:10 | RAD_ITS ---
STUDY: X-RAY CHEST REASON FOR EXAM: Male, 50 years old. Sob, hypoxia, covid TECHNIQUE: Single AP portable view of the chest. COMPARISON: Comparison is made with prior examination dated 06/05/2021. FINDINGS: EKG collections are seen. Since prior study, there has been a progression of the bilateral pulmonary infiltrates worse in the right hemithorax. There is no demonstrated pleural abnormality. Normal size heart. Normal mediastinum and clement. Normal visualized pulmonary arteries. There is atherosclerotic tortuosity of the aortic arch and descending thoracic aorta. There are diffuse degenerative changes of the visualized thoracic spine. Normal visualized ribs, clavicles, and shoulders. There is no demonstrated abnormality of the visualized soft tissue structures of the upper abdomen. RAD/Chest 1 View (Portable) IMPRESSION: Progressive bilateral pulmonary infiltrates worse in the right hemithorax. Electronically Signed: Dio Norwood MD at 12:34 EST , Service support ,
[2021-06-10 13:32] LABS: Pathologist Review Reviewed
--- NOTE | 2021-06-10 14:35 | EX.PCM.CONCC ---
Assessment & Plan Assessment/Plan (1) Acute respiratory failure with hypoxia: (2) COVID-19: PLAN: RECOMMENDATIONS: 1. Wean FiO2 to maintain oxygen saturations at or above 90%. 2. Continue empiric antimicrobials. 3. Continue Decadron to complete 10 days of therapy. 4. Continue prophylactic Lovenox. 5. Awake prone positioning was encouraged. 6. Encourage incentive spirometer use and mobilize patient as tolerated. IMPRESSIONS: 1. Acute hypoxemic respiratory failure secondary to COVID-19 pneumonia The patient was initially admitted to the hospital on June 06 after he was referred for monoclonal antibody infusion, but was subsequently found to be hypoxemic. He has been initiated on Decadron. Symptom onset was sometime around May 27. Therefore, the patient was not deemed to be a candidate for remdesivir. CTA was negative for PE. Therefore, the patient will be continued on prophylactic Lovenox. He was not deemed to be a candidate for baricitinib following evaluation by infectious diseases. Continue to wean FiO2 as tolerated for saturations greater than 90%. Diuretics can be utilized as needed to maintain euvolemic state. This note was generated with [employer] dictation software. It may contain incorrect words, spelling, and punctuation that were not noted in checking the note before signing. HPI Consult Data Date of Consult: 06/11/21 HPI Narrative Reason for Consultation: Acute hypoxemic respiratory failure secondary to COVID-19 pneumonia HPI Narrative: The patient is a 50-year-old male, with a history as outlined below, who presented to the emergency department on June 06 with shortness of breath and hypoxemia. The patient had presented to the infusion clinic to receive a monoclonal antibody but was noted to be hypoxemic and was therefore referred to the emergency department. The patient symptom onset was sometime around May 24. The patient is unvaccinated. On presentation to the emergency department, the patient was noted to have a low-grade fever but was otherwise hemodynamically stable. Initial laboratory evaluation revealed an elevated white blood cell count to 13,000. D-dimer was noted to be 2.26. Chemistry profile was notable for an elevated creatinine of 1.76. CTA chest showed no evidence for pulmonary embolism. However, there was extensive bilateral groundglass changes. The patient was placed on empiric antimicrobials, Decadron and prophylactic Lovenox. He was subsequently admitted to the medical surgical floor for further management. The patient's hospitalization has been complicated by worsening oxygenation status. He was not deemed to be a candidate for baricitinib by infectious diseases. The patient is currently requiring heated high flow with an FiO2 of 80%. [facility] Medical History Anemia Hypertension Rheumatoid arthritis Home Medications allopurinol 100 mg tablet 300 mg PO BID 09/11/19 [History Last Taken Unknown] diltiazem HCl 120 mg PO DAILY 05/14/20 [History Last Taken 08/06/20] sildenafil 50 mg tablet 50 mg PO PRN PRN tab 05/26/21 [History Last Taken Unknown] Allergy/AdvReac Type Severity Reaction Status Date / Time No Known Allergies Allergy Verified 06/05/21 11:02 Family History (Updated 06/05/21 @ 22:[address] Toni Burleson MD) Other Cancer Surgical History Hx of total hip arthroplasty Social History (Updated 06/05/21 @ 22:[address] Toni Burleson MD) household members: family Smoking Status: Never smoker substance use type: does not use ROS Constitutional Constitutional: Reports body ache(s) and fatigue; Denies headache(s) Eyes Eyes: Denies blurry vision or change in vision ENT HEENT: Reports headache(s); Denies dizziness or dysphagia Cardiovascular Cardiovascular: Reports dyspnea Respiratory/Chest Respiratory/Chest: Reports cough and dyspnea Gastrointestinal Gastrointestinal: Denies abdominal pain, diarrhea, nausea or vomiting Genitourinary Genitourinary: Denies difficulty urinating Musculoskeletal Musculoskeletal: Denies arthralgias or back pain Integumentary Integumentary: Denies lesions, rash or skin ulcer Neurologic Neurologic: Denies abnormal gait or abnormal speech Psychiatric Psychiatric: Denies anxiety or depression Endocrine Endocrinology: Reports fatigue Hematologic/Lymphatic Hematologic/Lymphatic: Denies easy bleeding or easy bruising Physical Exam Const alert and oriented x3 Constitutional Narrative: Currently on heated high flow system. Sitting in bedside recliner. General Appearance: cooperative Nutritional Appearance: obese HEENT normocephalic, head/scalp atraumatic and moist oral mucous membranes Eyes PERRL, EOMs intact bilaterally and conjunctivae normal Neck supple General: trachea midline Chest inspection of chest normal Resp Effort and Inspection: tachypneic Auscultation: diminished lung sounds Cardio S1 normal heart sound and S2 normal heart sound Rate: bradycardia GI normal to inspection, nondistended, normoactive bowel sounds Extremity no clubbing, cyanosis or edema Skin no rashes or lesions noted Neuro CN's II-XII intact bilaterally, moves all extremities and no focal motor deficits Psych cooperative and affect normal Lab / Micro Data Result Diagrams: 06/11/21 06:40 06/11/21 06:40 Labs: Laboratory Results - last 24 hr 06/10/21 06:40: Sodium 142, Potassium 3.9, Chloride 110 H, Carbon Dioxide 25.0, Anion Gap 7, BUN 24 H, Creatinine 0.93, Estim Creat Clear Calc 87.86, Est GFR (MDRD) Af Amer 110, Est GFR (MDRD) Non-Af 91, BUN/Creatinine Ratio 25.9 H, Glucose 99, Calcium 8.5, Total Bilirubin 0.30, AST 33, ALT 52, Alkaline Phosphatase 62, Total Protein 6.6, Albumin 1.9 L, Globulin 4.7 H, Albumin/Globulin Ratio 0.4 L 06/10/21 10:26: D-Dimer Quant (PE/DVT) 3.33 H* 06/10/21 10:26: C-React Prot Ext Range 105.00 H 06/10/21 10:26: B-Natriuretic Peptide 29.4 06/10/21 10:26: Procalcitonin 0.22 H 06/10/21 10:26: Total Creatine Kinase 107 06/10/21 : WBC 13.4 H, RBC 4.19 L, Hgb 12.6 L, Hct 37.7 L, MCV 90.0, MCH 30.1, MCHC 33.4, RDW Std Deviation 41.7, RDW Coeff of Moshe 12.6, Plt Count 356, MPV 11.7, Neut % (Auto) Not Reportable, Absolute Neuts (auto) 11.0 H, Absolute Lymphs (auto) 1.50, Total Counted 100, Neutrophils % (Manual) 82 H, Lymphocytes % (Manual) 11 L, Monocytes % (Manual) 4, Metamyelocytes % 1, Myelocytes % 2 H, Diff Path Review Reviewed, Platelet Estimate ADEQUATE, RBC Morphology NORM C+C Micro: Microbiology 06/08/21 20:14 Sputum, Expectorated/Coughed Gram Stain - Final 06/08/21 20:14 Sputum, Expectorated/Coughed Respiratory Culture - Preliminary Appears to be normal respiratory mame. Further studies to follow. ABG Data ABG results: ABG 06/10/21 11:26 Specimen Type ART Sample Site R Brach pH 7.49 H Bicarbonate Actual 20.8 L Total CO2 22 Base Excess -3 L O2 Saturation 93 L O2 % 80 ABG pCO2 27.3 L ABG pO2 61 L Casper Test Positive Clinical Comments Airvo 60L 80% Charges/Coding Visit Charges Inpatient E&M: 64986 Init Hosp L3
[2021-06-11] VITALS (13 sets, daily range): BP systolic 117–159; BP diastolic 67–83; PULSE 38–71; RESP 18–24; TEMP 36.7–37.1; O2SAT 88–96
[2021-06-11 07:19] LABS: Hematocrit 37.3 % (40-54); Hemoglobin 12.6 g/dL (13.0-16.5); Mean Corp Hgb Conc 33.8 g/dL (32-36); Mean Corpuscular Hgb 30.7 pg (27.0-32.0); Mean Platelet Vol. 11.6 fl (6.2-12.0); POSITIVE COUNT YES; POSITIVE MORPHOLOGY YES; Platelet Count 387 K/mm3 (150-450); RBC Distribution Width CV 12.5 % (11.6-14.6); RBC Distribution Width SD 41.4 fl (35.1-43.9); White Blood Count 13.7 K/mm3 (4.4-11.0)
[2021-06-11 07:25] LABS: Differential Indicated MANUAL DIFF
[2021-06-11 07:46] LABS: ALB/GLOB Ratio 0.4 RATIO (0.9-2.4); AST(SGOT) 31 U/L (15-37); Alanine Aminotransfer ALT/SGPT 52 U/L (16-61); Albumin, Serum 1.7 g/dL (3.2-5.0); Alkaline Phosphatase 63 U/L (45-117); Anion Gap 6 (5-15); BUN 25 mg/dL (7-18); BUN/Creat Ratio 29.3 RATIO (10-20); Calcium,Total 7.7 mg/dL (8.5-10.1); Chloride 107 mmol/L (98-107); Creatinine, Serum 0.85 mg/dL (0.70-1.30); EST Glomerular Filtration Rate 100 mL/min (>60); Est Glom Filt Rate - Afr Amer 121 mL/min (>60); Estimated Creatinine Clearance 96.13 ml/min; Globulin 4.8 g/dL (2.2-4.2); Glucose 93 mg/dL (74-106); Potassium 4.2 mmol/L (3.5-5.1); Protein, Total 6.5 g/dL (6.4-8.2); Sodium Level 140 mmol/L (136-145)
[2021-06-11 08:07] LABS: Eosinophil 1 % (0-5); Lymphocyte 9 % (19-41); Metamyelocyte 4 % (0-1); Monocyte 4 % (0-10); Neutrophil-Segmented 81 % (47-70); Platelet Estimate ADEQUATE (ADEQ); Promyelocyte 1 % (0-0); Red Cell Morphology NORM C+C NORMAL (NORM C&C); Total Cells Counted 100 (MANUAL DIFF)
[2021-06-11 08:08] LABS: Absolute Lymphocyte Count 1.23 X10^3/uL (0.83-4.51); Absolute Neutrophil Count 11.1 X10^3/uL (2.0-7.7); Lymphocyte # 1.23 X10^3/ul (0.83-4.51)
--- NOTE | 2021-06-11 09:22 | PCM.PN.HOSP ---
Subjective Subjective Mild subjective improvement in shortness of breath and cough. Objective Data Objective Data Vital Signs: Vital Signs Temp Pulse Resp BP Pulse Ox 98.1 F 45 L 18 154/81 H 89 06/11/21 08:08 06/11/21 08:08 06/11/21 08:08 06/11/21 08:08 06/11/21 08:45 Oxygen Flow Rate (L/min) 60 Oxygen Delivery Method Airvo Weight: 204 lb Body Mass Index (BMI) 31.9 Intake & Output: Intake and Output for Last 24 Hours 06/09/21 06/10/21 06/11/21 23:59 23:59 23:59 Intake Total 2568.75 / 2568.75 873.5 / 873.5 500 / 500 Output Total 1200 / 1200 2000 / 2000 1000 / 1000 Balance 1368.75 / 1368.75 -1126.5 / -1126.5 -500 / -500 Lab / Micro Data Result Diagrams: 06/11/21 06:40 06/11/21 06:40 Labs: Laboratory Results - last 24 hr 06/10/21 10:26: D-Dimer Quant (PE/DVT) 3.33 H* 06/10/21 10:26: C-React Prot Ext Range 105.00 H 06/10/21 10:26: B-Natriuretic Peptide 29.4 06/10/21 10:26: Procalcitonin 0.22 H 06/10/21 10:26: Total Creatine Kinase 107 06/10/21 : Absolute Neuts (auto) 11.0 H, Absolute Lymphs (auto) 1.50, Total Counted 100, Neutrophils % (Manual) 82 H, Lymphocytes % (Manual) 11 L, Monocytes % (Manual) 4, Metamyelocytes % 1, Myelocytes % 2 H, Diff Path Review Reviewed, Platelet Estimate ADEQUATE, RBC Morphology NORM C+C 06/11/21 06:40: Sodium 140, Potassium 4.2, Chloride 107, Carbon Dioxide 27.0, Anion Gap 6, BUN 25 H, Creatinine 0.85, Estim Creat Clear Calc 96.13, Est GFR (MDRD) Af Amer 121, Est GFR (MDRD) Non-Af 100, BUN/Creatinine Ratio 29.3 H, Glucose 93, Calcium 7.7 L, Total Bilirubin 0.30, AST 31, ALT 52, Alkaline Phosphatase 63, Total Protein 6.5, Albumin 1.7 L, Globulin 4.8 H, Albumin/Globulin Ratio 0.4 L 06/11/21 06:40: WBC 13.7 H, RBC 4.10 L, Hgb 12.6 L, Hct 37.3 L, MCV 91.0, MCH 30.7, MCHC 33.8, RDW Std Deviation 41.4, RDW Coeff of Moshe 12.5, Plt Count 387, MPV 11.6, Neut % (Auto) Not Reportable, Absolute Neuts (auto) 11.1 H, Absolute Lymphs (auto) 1.23, Total Counted 100, Neutrophils % (Manual) 81 H, Lymphocytes % (Manual) 9 L, Monocytes % (Manual) 4, Eosinophils % (Manual) 1, Metamyelocytes % 4 H, Promyelocytes % 1 H, Diff Path Review October, Platelet Estimate ADEQUATE, RBC Morphology NORM C+C Micro: Microbiology 06/08/21 20:14 Sputum, Expectorated/Coughed Gram Stain - Final 06/08/21 20:14 Sputum, Expectorated/Coughed Respiratory Culture - Final Mixed normal respiratory mame. No Streptococcus pneumoniae, beta-hemolytic Streptococcus or Staphylococcus aureus isolated. 06/08/21 11:00 Urine, Clean Catch Streptococcus pneumoniae Antigen (M - Final 06/08/21 11:00 Urine, Clean Catch Legionella Antigen - Final ABG Data ABG results: ABG 06/10/21 11:26 Specimen Type ART Sample Site R Brach pH 7.49 H Bicarbonate Actual 20.8 L Total CO2 22 Base Excess -3 L O2 Saturation 93 L O2 % 80 ABG pCO2 27.3 L ABG pO2 61 L [place] Test Positive Clinical Comments Airvo 60L 80% Radiography Diagnostic Testing: Radiology Impression Chest X-Ray 06/10/21 12:10 IMPRESSION: Progressive bilateral pulmonary infiltrates worse in the right hemithorax. Electronically Signed: Dio Norwood MD at 12:34 EST , Service support , Physical Exam Narrative General: Alert, Oriented x3, Cooperative HEENT: Atraumatic, PERRLA, EOMI, Normocephalic Oral: No Gingival or Mucosal Lesions/ Ulcerations Neck: Supple, No JVD, Negative Carotid Bruits Lungs: Air entry diminished in bilateral lungs. Bilateral expiratory rhonchi. Severe hypoxia and VOGEL Cardiovascular: Sinus bradycardia, Normal S1, Normal S2, No murmurs Abdomen: Bowel Sounds Present, Soft, Non Tender, Non-Distended : No renal angle tenderness. No suprapubic tenderness. Extremities: No edema, Capillary Refill Less than 3 Seconds Skin: No rashes, No breakdown Musculoskeletal: No Tenderness to Palpation of Joints or Extremities Neurological: Cranial nerves II-XII grossly intact, DTR 2+/4 and Symmetrical, Neuro grossly intact Psych/Mental Status: Normal Affect, Appropriate. Assessment & Plan Assessment/Plan (1) Acute respiratory failure with hypoxia: (2) Pneumonia due to 2019-nCoV: (3) Acute kidney injury: PLAN: 1. acute respiratory failure secondary to bilateral COVID-19 pneumonia with bacterial superinfection/pneumonia: Patient sputum culture showing 3+ WBC, 3+ gram-positive cocci in clusters, 2+ gram-negative rods. Prelim sputum culture 3+ alphahemolytic streptococci. Started on IV ceftriaxone 2 g daily. Continue air Vo, incentive spirometry and PEP. CT chest negative for PE. Bilateral interstitial pulmonary infiltrates. Urinary antigens are negative. D-dimer elevated. Consult ID to see indication for baricitinib. Furosemide challenge as needed. 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 Repeat chest x-ray. IV fluid was discontinued yesterday. Lasix was given. Repeat Lasix 20 mg IV 1 dose. BP 118/69. Ceftriaxone was added yesterday. ABG ordered. Cloth Dyer/pulmonary consult. Inflammatory markers ordered 06/11: Inflammatory markers are elevated especially CRP and D-dimer. Repeat chest x-ray shows progressive bilateral pulmonary infiltrates worse in the right hemithorax. Seen by ID and not candidate for bacterial history for duration hypoxia and bacterial pneumonia. Isolation until 06/15. 2. Acute COVID 19 unvaccinated. onset 05/24, quarantine through 06/13 on dexamethasone out of the window for remdesivir 3. Acute kidney injury resolved. Creatinine improved from 1.84-0.8 4. VTE prophylaxis: LMWH Total time of the visit including total time spent in counseling or coordination of care, (more than 50% of the total time, spent in obtaining medical information from nurses and other ancillary care providers,explaining to the patient about labs, imaging, diagnosis and management), consultants, review of labs and imaging is 30 minutes. Charges/Coding Visit Charges Inpatient E&M: 61595 Subs Hosp L2
[2021-06-11] MEDS: 0.9% Saline Lock 10 ML Syringe IV (10:31)
[2021-06-11] MEDS: Enoxaparin 30 MG/0.3 ML Syringe SC ×2 (10:31→21:15)
[2021-06-11] MEDS: dexAMETHasone 2 MG TABLET 6 MG PO (10:32)
[2021-06-11] MEDS: Allopurinol 100 MG Tablet PO ×2 (10:32→21:17)
[2021-06-11 14:17] LABS: Pathologist Review Reviewed
[2021-06-12] VITALS (20 sets, daily range): BP systolic 106–126; BP diastolic 67–78; PULSE 40–70; RESP 17–22; TEMP 36.4–36.6; O2SAT 88–98
[2021-06-12 06:11] LABS: Hematocrit 37.3 % (40-54); Hemoglobin 12.7 g/dL (13.0-16.5); Mean Corpuscular Hgb 30.8 pg (27.0-32.0); Mean Corpuscular Volume 90.3 fL (80-94); Mean Platelet Vol. 11.5 fl (6.2-12.0); POSITIVE COUNT YES; POSITIVE MORPHOLOGY YES; Platelet Count 389 K/mm3 (150-450); RBC Distribution Width CV 12.5 % (11.6-14.6); RBC Distribution Width SD 41.4 fl (35.1-43.9); Red Blood Count 4.13 M/mm3 (4.6-6.2); White Blood Count 15.7 K/mm3 (4.4-11.0)
[2021-06-12 06:16] LABS: Differential Indicated MANUAL DIFF
[2021-06-12 06:39] LABS: Absolute Lymphocyte Count 1.42 X10^3/uL (0.83-4.51); Absolute Neutrophil Count 12.8 X10^3/uL (2.0-7.7); Lymphocyte 9 % (19-41); Metamyelocyte 3 % (0-1); Monocyte 3 % (0-10); Myelocyte 3 % (0-0); Neutrophil-Segmented 81 % (47-70); Platelet Estimate ADEQUATE (ADEQ); Promyelocyte 1 % (0-0); Total Cells Counted 100 (MANUAL DIFF)
[2021-06-12 06:40] LABS: Red Cell Morphology NORM C+C NORMAL (NORM C&C)
[2021-06-12] MEDS: Enoxaparin 30 MG/0.3 ML Syringe SC ×2 (10:44→21:08)
[2021-06-12] MEDS: dexAMETHasone 2 MG TABLET 6 MG PO (10:44)
[2021-06-12] MEDS: Allopurinol 100 MG Tablet PO ×2 (10:44→21:08)
--- NOTE | 2021-06-12 14:41 | PN.HOSP_ITS ---
Subjective Subjective Patient reports mild improvement in shortness of breath and cough. Sitting in the chair. Complain of nose pain because of oxygen/air Vo. Patient on nasal saline. Objective Data Objective Data Vital Signs: Vital Signs Temp Pulse Resp BP Pulse Ox 97.8 F 54 L 18 126/78 H 94 06/12/21 14:28 06/12/21 14:28 06/12/21 14:28 06/12/21 14:28 06/12/21 14:35 Oxygen Flow Rate (L/min) 60 Oxygen Delivery Method Airvo Weight: 204 lb Body Mass Index (BMI) 31.9 Intake & Output: Intake and Output for Last 24 Hours 06/10/21 06/11/21 06/12/21 23:59 23:59 23:59 Intake Total 873.5 / 873.5 550 / 550 50 / 50 Output Total 1999 / 1999 1000 / 1000 Balance -1126.5 / -1126.5 -450 / -450 50 / 50 Medical Nutrition Assessment Dietitian: Malnutrition Criteria Met Start: 06/11/21 15:47 Freq: Status: Active Protocol: Document 06/11/21 15:47 SLA (Rec: 06/11/21 15:47 SLA [id number]) Nutrition Malnutrition Evidence of Malnutrition Exists Yes Malnutrition (severe): Acute Illness/Injury Evidenced By Suboptimal Energy Intake ( Severe),Weight Loss (Severe) Clinical Problem Altered Nutrient-Related Laboratory Values Status Inactive Problem Acute Disease or Injury Related Malnutrition Etiology related to increased nutritional needs r/t resp failure and covid making it difficult for pt to consume food/fluid adequately to meet est nutrition needs Signs/Symptoms as evidenced by 7.3% wt loss likely in past 2 wks and po intake <50% x >5 days. Status Active Problem Recommendation Dietitian Recommendations/Changes Will continue Regular diet and give ensure enlive w/ meals for increased nutrition if consumed. Lab / Micro Data Result Diagrams: 06/12/21 05:50 06/11/21 06:40 Labs: Laboratory Results - last 24 hr 06/12/21 05:50: WBC 15.7 H, RBC 4.13 L, Hgb 12.7 L, Hct 37.3 L, MCV 90.3, MCH 30.8, MCHC 34.0, RDW Std Deviation 41.4, RDW Coeff of Moshe 12.5, Plt Count 389, MPV 11.5, Neut % (Auto) Not Reportable, Absolute Neuts (auto) 12.8 H, Absolute L ymphs (auto) 1.42, Total Counted 100, Neutrophils % (Manual) 81 H, Lymphocytes % (Manual) 9 L, Monocytes % (Manual) 3, Metamyelocytes % 3 H, Myelocytes % 3 H, Promyelocytes % 1 H, Diff Path Review October, Platelet Estimate ADEQUATE, RBC Morphology NORM C+C Micro: Microbiology 06/08/21 20:14 Sputum, Expectorated/Coughed Gram Stain - Final 06/08/21 20:14 Sputum, Expectorated/Coughed Respiratory Culture - Final Mixed normal respiratory mame. No Streptococcus pneumoniae, beta-hemolytic Streptococcus or Staphylococcus aureus isolated. 06/08/21 11:00 Urine, Clean Catch Streptococcus pneumoniae Antigen (M - Final 06/08/21 11:00 Urine, Clean Catch Legionella Antigen - Final Physical Exam Narrative General: Alert, Oriented x3, Cooperative HEENT: Atraumatic, PERRLA, EOMI, Normocephalic Oral: No Gingival or Mucosal Lesions/ Ulcerations Neck: Supple, No JVD, Negative Carotid Bruits Lungs: Air entry diminished in bilateral lungs. Severe hypoxia and VOGEL, NIPPV Cardiovascular: Sinus bradycardia, Normal S1, Normal S2, No murmurs Abdomen: Bowel Sounds Present, Soft, Non Tender, Non-Distended : No renal angle tenderness. No suprapubic tenderness. Extremities: No edema, Capillary Refill Less than 3 Seconds Skin: No rashes, No breakdown Musculoskeletal: No Tenderness to Palpation of Joints or Extremities Neurological: Cranial nerves II-XII grossly intact, DTR 2+/4 and Symmetrical, Neuro grossly intact Psych/Mental Status: Normal Affect, Appropriate. Assessment & Plan Assessment/Plan (1) Acute respiratory failure with hypoxia: (2) Pneumonia due to 2019-nCoV: (3) Acute kidney injury: PLAN: 1. acute respiratory failure secondary to bilateral COVID-19 pneumonia with bacterial superinfection/pneumonia: Patient sputum culture showin g 3+ WBC, 3+ gram-positive cocci in clusters, 2+ gram-negative rods. Prelim sputum culture 3+ alphahemolytic streptococci. Started on IV ceftriaxone 2 g daily. Continue air Vo, incentive spirometry and PEP. CT chest negative for PE. Bilateral interstitial pulmonary infiltrates. Urinary antigens are negative. D-dimer elevated. Consult ID to see indication for baricitinib. Furosemide challenge as needed. 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 Repeat chest x-ray. IV fluid was discontinued yesterday. Lasix was given. Repeat Lasix 20 mg IV 1 dose. BP 118/69. Ceftriaxone was added yesterday. ABG ordered. Cobol Developer/pulmonary consult. Inflammatory markers ordered 06/11: Inflammatory markers are elevated especially CRP and D-dimer. Repeat chest x-ray shows progressive bilateral pulmonary infiltrates worse in the right hemithorax. Seen by ID and not candidate for baricitinib because of history for duration of hypoxia and bacterial pneumonia. Isolation until 06/15. 06/12: On 77% FiO2, 60 L/min air Vo. Advised to continue incentive spirometry, Pep and prone position 2. Acute COVID 19 unvaccinated. onset 05/24, quarantine through 06/13 on dexamethasone out of the window for remdesivir 3. Acute kidney injury resolved. Creatinine improved from 1.84-0.8 4. VTE prophylaxis: LMWH Total time of the visit including total time spent in counseling or coordination of care, (more than 50% of the total time, spent in obtaining medical information from nurses and other ancillary care providers,explaining to the patient about labs, imaging, diagnosis and management), consultants, review of labs and imaging is 30 minutes. Charges/Coding Visit Charges Inpatient E&M: 44293 Subs Hosp L2
[2021-06-13] VITALS (17 sets, daily range): BP systolic 112–154; BP diastolic 73–87; PULSE 39–62; RESP 18–20; TEMP 36.3–36.9; O2SAT 60–97
[2021-06-13 07:10] LABS: Hematocrit 40.4 % (40-54); Hemoglobin 13.7 g/dL (13.0-16.5); Mean Corp Hgb Conc 33.9 g/dL (32-36); Mean Corpuscular Hgb 30.7 pg (27.0-32.0); Mean Corpuscular Volume 90.6 fL (80-94); Mean Platelet Vol. 11.3 fl (6.2-12.0); POSITIVE COUNT YES; POSITIVE MORPHOLOGY YES; Platelet Count 426 K/mm3 (150-450); RBC Distribution Width CV 12.5 % (11.6-14.6); RBC Distribution Width SD 41.7 fl (35.1-43.9); Red Blood Count 4.46 M/mm3 (4.6-6.2); White Blood Count 19.2 K/mm3 (4.4-11.0)
[2021-06-13 07:13] LABS: Differential Indicated MANUAL DIFF
[2021-06-13 07:37] LABS: Lymphocyte 18 % (19-41); Metamyelocyte 4 % (0-1); Monocyte 1 % (0-10); Myelocyte 1 % (0-0); Neutrophil-Band 2 % (0-5); Neutrophil-Segmented 74 % (47-70); Total Cells Counted 100 (MANUAL DIFF)
[2021-06-13 07:38] LABS: Absolute Neutrophil Count 14.6 X10^3/uL (2.0-7.7); Anion Gap 5 (5-15); BUN 20 mg/dL (7-18); BUN/Creat Ratio 22.2 RATIO (10-20); Calcium,Total 9.1 mg/dL (8.5-10.1); Chloride 105 mmol/L (98-107); EST Glomerular Filtration Rate 94 mL/min (>60); Est Glom Filt Rate - Afr Amer 114 mL/min (>60); Estimated Creatinine Clearance 90.79 ml/min; Glucose 110 mg/dL (74-106); Neutrophil # 14.57 X10^3/uL (2.7-7.7); Platelet Estimate ADEQUATE (ADEQ); Potassium 4.7 mmol/L (3.5-5.1); Red Cell Morphology NORM C+C NORMAL (NORM C&C); Sodium Level 138 mmol/L (136-145)
[2021-06-13 07:39] LABS: Absolute Lymphocyte Count 3.45 X10^3/uL (0.83-4.51); Lymphocyte # 3.45 X10^3/ul (0.83-4.51)
[2021-06-13 09:51] LABS: Pathologist Review Reviewed
[2021-06-13] MEDS: dexAMETHasone 2 MG TABLET 6 MG PO (10:10)
[2021-06-13] MEDS: Enoxaparin 30 MG/0.3 ML Syringe SC ×2 (10:10→23:05)
[2021-06-13] MEDS: Allopurinol 100 MG Tablet PO ×2 (10:10→23:05)
--- NOTE | 2021-06-13 11:18 | PCM.PN.INT ---
Assessment & Plan Assessment/Plan (1) Acute respiratory failure with hypoxia: (2) COVID-19: PLAN: RECOMMENDATIONS: 1. Wean FiO2 to maintain oxygen saturations at or above 90%. 2. Continue empiric antimicrobials to complete 7-day treatment course. 3. Continue Decadron to complete 10 days of therapy. 4. Continue prophylactic Lovenox. 5. Awake prone positioning was encouraged. 6. Encourage incentive spirometer use and mobilize patient as tolerated. IMPRESSIONS: 1. Acute hypoxemic respiratory failure secondary to COVID-19 pneumonia The patient was initially admitted to the hospital on June 06 after he was referred for monoclonal antibody infusion, but was subsequently found to be hypoxemic. The patient was not felt to be a candidate for remdesivir or baricitinib. The patient remains on Decadron, which will be continued to complete a 10-day treatment course. CTA was negative for PE. Therefore, the patient will be continued on prophylactic Lovenox. Continue to wean FiO2 as tolerated for saturations greater than 90%. Diuretics can be utilized as needed to maintain euvolemic state. This note was generated with [employer] dictation software. It may contain incorrect words, spelling, and punctuation that were not noted in checking the note before signing. Subjective Subjective The patient was seen and examined at the bedside this morning. Events from the last 24 hours have been reviewed. The patient is currently afebrile, hemodynamically stable and maintaining appropriate oxygen saturations on Airvo heated high flow with an FiO2 requirement of 60% and flow rate of 60 L/min. The patient is currently documented to be overall net +5.5 L for the hospitalization. White count is elevated at 19,000. Renal function is within normal limits. The patient remains on antimicrobials along with Decadron and prophylactic Lovenox. Objective Data Objective Data The patient's most recent lab work, culture data and imaging studies have all been personally reviewed. Vital Signs: Vital Signs Temp Pulse Resp BP Pulse Ox 97.8 F 50 L 19 H 154/75 H 60 06/13/21 03:18 06/13/21 07:30 06/13/21 03:21 06/13/21 03:18 06/13/21 10:00 Oxygen Flow Rate (L/min) 60 Oxygen Delivery Method Airvo Weight: 92.533 kg Body Mass Index (BMI) 31.9 Intake & Output: Intake and Output for Last 24 Hours 06/11/21 06/12/21 06/13/21 23:59 23:59 23:59 Intake Total 550 / 550 50 / 50 500 / 500 Output Total 1000 / 1000 1100 / 1100 Balance -450 / -450 50 / 50 -600 / -600 Medical Nutrition Assessment Dietitian: Malnutrition Criteria Met Start: 06/11/21 15:47 Freq: Status: Active Protocol: Document 06/11/21 15:47 SLA (Rec: 06/11/21 15:47 SLA [id number]) Nutrition Malnutrition Evidence of Malnutrition Exists Yes Malnutrition (severe): Acute Illness/Injury Evidenced By Suboptimal Energy Intake ( Severe),Weight Loss (Severe) Clinical Problem Altered Nutrient-Related Laboratory Values Status Inactive Problem Acute Disease or Injury Related Malnutrition Etiology related to increased nutritional needs r/t resp failure and covid making it difficult for pt to consume food/fluid adequately to meet est nutrition needs Signs/Symptoms as evidenced by 7.3% wt loss likely in past 2 wks and po intake <50% x >5 days. Status Active Problem Recommendation Dietitian Recommendations/Changes Will continue Regular diet and give ensure enlive w/ meals for increased nutrition if consumed. Lab / Micro Data Attestation: I reviewed the patient's lab results. Result Diagrams: 06/13/21 06:57 06/13/21 06:57 Labs: Laboratory Results - last 24 hr 06/12/21 05:50: Diff Path Review Reviewed 06/13/21 06:57: WBC 19.2 H, RBC 4.46 L, Hgb 13.7, Hct 40.4, MCV 90.6, MCH 30.7, MCHC 33.9, RDW Std Deviation 41.7, RDW Coeff of Moshe 12.5, Plt Count 426, MPV 11.3, Neut % (Auto) Not Reportable, Absolute Neuts (auto) 14.6 H, Absolute Lymphs (auto) 3.45, Total Counted 100, Neutrophils % (Manual) 74 H, Band Neutrophils % 2, Lymphocytes % (Manual) 18 L, Monocytes % (Manual) 1, Metamyelocytes % 4 H, Myelocytes % 1 H, Diff Path Review May foll, Platelet Estimate ADEQUATE, RBC Morphology NORM C+C 06/13/21 06:57: Sodium 138, Potassium 4.7, Chloride 105, Carbon Dioxide 28.0, Anion Gap 5, BUN 20 H, Creatinine 0.90, Estim Creat Clear Calc 90.79, Est GFR (MDRD) Af Amer 114, Est GFR (MDRD) Non-Af 94, BUN/Creatinine Ratio 22.2 H, Glucose 110 H, Calcium 9.1 Micro: Microbiology 06/08/21 20:14 Sputum, Expectorated/Coughed Gram Stain - Final 06/08/21 20:14 Sputum, Expectorated/Coughed Respiratory Culture - Final Mixed normal respiratory mame. No Streptococcus pneumoniae, beta-hemolytic Streptococcus or Staphylococcus aureus isolated. 06/08/21 11:00 Urine, Clean Catch Streptococcus pneumoniae Antigen (M - Final 06/08/21 11:00 Urine, Clean Catch Legionella Antigen - Final Physical Exam Const alert and oriented x3 General Appearance: cooperative Nutritional Appearance: obese HEENT normocephalic, head/scalp atraumatic and moist oral mucous membranes Eyes PERRL, EOMs intact bilaterally and conjunctivae normal Neck supple General: trachea midline Chest inspection of chest normal Resp normal respiratory effort Auscultation: diminished lung sounds Cardio S1 normal heart sound and S2 normal heart sound Rate: bradycardia GI normal to inspection, nondistended, normoactive bowel sounds Extremity no clubbing, cyanosis or edema Skin no rashes or lesions noted Neuro CN's II-XII intact bilaterally, moves all extremities and no focal motor deficits Psych cooperative and affect normal Charges/Coding Visit Charges Inpatient E&M: 95993 Subs Hosp L2
--- NOTE | 2021-06-13 13:38 | PCM.PN.HOSP ---
Subjective Subjective Patient reports mild subjective improvement in shortness of breath. Remains on [employer]rava. Objective Data Objective Data Vital Signs: Vital Signs Temp Pulse Resp BP Pulse Ox 97.8 F 62 19 H 154/75 H 60 06/13/21 03:18 06/13/21 11:00 06/13/21 03:21 06/13/21 03:18 06/13/21 10:00 Oxygen Flow Rate (L/min) 60 Oxygen Delivery Method Airvo Weight: 204 lb Body Mass Index (BMI) 31.9 Intake & Output: Intake and Output for Last 24 Hours 06/11/21 06/12/21 06/13/21 23:59 23:59 23:59 Intake Total 550 / 550 50 / 50 550 / 550 Output Total 1000 / 1000 1100 / 1100 Balance -450 / -450 50 / 50 -550 / -550 Medical Nutrition Assessment Dietitian: Malnutrition Criteria Met Start: 06/11/21 15:47 Freq: Status: Active Protocol: Document 06/11/21 15:47 SLA (Rec: 06/11/21 15:47 SLA [id number]) Nutrition Malnutrition Evidence of Malnutrition Exists Yes Malnutrition (severe): Acute Illness/Injury Evidenced By Suboptimal Energy Intake ( Severe),Weight Loss (Severe) Clinical Problem Altered Nutrient-Related Laboratory Values Status Inactive Problem Acute Disease or Injury Related Malnutrition Etiology related to increased nutritional needs r/t resp failure and covid making it difficult for pt to consume food/fluid adequately to meet est nutrition needs Signs/Symptoms as evidenced by 7.3% wt loss likely in past 2 wks and po intake <50% x >5 days. Status Active Problem Recommendation Dietitian Recommendations/Changes Will continue Regular diet and give ensure enlive w/ meals for increased nutrition if consumed. Lab / Micro Data Result Diagrams: 06/13/21 06:57 06/13/21 06:57 Labs: Laboratory Results - last 24 hr 06/12/21 05:50: Diff Path Review Reviewed 06/13/21 06:57: WBC 19.2 H, RBC 4.46 L, Hgb 13.7, Hct 40.4, MCV 90.6, MCH 30.7, MCHC 33.9, RDW Std Deviation 41.7, RDW Coeff of Moshe 12.5, Plt Count 426, MPV 11.3, Neut % (Auto) Not Reportable, Absolute Neuts (auto) 14.6 H, Absolute Lymphs (auto) 3.45, Total Counted 100, Neutrophils % (Manual) 74 H, Band Neutrophils % 2, Lymphocytes % (Manual) 18 L, Monocytes % (Manual) 1, Metamyelocytes % 4 H, Myelocytes % 1 H, Diff Path Review May , Platelet Estimate ADEQUATE, RBC Morphology NORM C+C 06/13/21 06:57: Sodium 138, Potassium 4.7, Chloride 105, Carbon Dioxide 28.0, Anion Gap 5, BUN 20 H, Creatinine 0.90, Estim Creat Clear Calc 90.79, Est GFR (MDRD) Af Amer 114, Est GFR (MDRD) Non-Af 94, BUN/Creatinine Ratio 22.2 H, Glucose 110 H, Calcium 9.1 Micro: Microbiology 06/08/21 20:14 Sputum, Expectorated/Coughed Gram Stain - Final 06/08/21 20:14 Sputum, Expectorated/Coughed Respiratory Culture - Final Mixed normal respiratory mame. No Streptococcus pneumoniae, beta-hemolytic Streptococcus or Staphylococcus aureus isolated. 06/08/21 11:00 Urine, Clean Catch Streptococcus pneumoniae Antigen (M - Final 06/08/21 11:00 Urine, Clean Catch Legionella Antigen - Final Physical Exam Narrative General: Alert, Oriented x3, Cooperative HEENT: Atraumatic, PERRLA, EOMI, Normocephalic Oral: No Gingival or Mucosal Lesions/ Ulcerations Neck: Supple, No JVD, Negative Carotid Bruits Lungs: Air entry diminished in bilateral lungs. Severe hypoxia and VOGEL, NIPPV on 60 FiO2. Mild bilateral lungs wheezing/rhonchi Cardiovascular: Sinus bradycardia, Normal S1, Normal S2, No murmurs Abdomen: Bowel Sounds Present, Soft, Non Tender, Non-Distended : No renal angle tenderness. No suprapubic tenderness. Extremities: No edema, Capillary Refill Less than 3 Seconds Skin: No rashes, No breakdown Musculoskeletal: No Tenderness to Palpation of Joints or Extremities Neurological: Cranial nerves II-XII grossly intact, DTR 2+/4 and Symmetrical, Neuro grossly intact Psych/Mental Status: Normal Affect, Appropriate. Assessment & Plan Assessment/Plan (1) Acute respiratory failure with hypoxia: (2) Pneumonia due to 2019-nCoV: (3) Acute kidney injury: PLAN: 1. acute respiratory failure secondary to bilateral COVID-19 pneumonia with bacterial superinfection/pneumonia: Patient sputum culture showing 3+ WBC, 3+ gram-positive cocci in clusters, 2+ gram-negative rods. Prelim sputum culture 3+ alphahemolytic streptococci. Started on IV ceftriaxone 2 g daily. Continue air Vo, incentive spirometry and PEP. CT chest negative for PE. Bilateral interstitial pulmonary infiltrates. Urinary antigens are negative. D-dimer elevated. Consult ID to see indication for baricitinib. Furosemide challenge as needed. 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 Repeat chest x-ray. IV fluid was discontinued yesterday. Lasix was given. Repeat Lasix 20 mg IV 1 dose. BP 118/69. Ceftriaxone was added yesterday. ABG ordered. It Risk And Assurance Senior Manager/pulmonary consult. Inflammatory markers ordered 06/11: Inflammatory markers are elevated especially CRP and D-dimer. Repeat chest x-ray shows progressive bilateral pulmonary infiltrates worse in the right hemithorax. Seen by ID and not candidate for baricitinib because of history for duration of hypoxia and bacterial pneumonia. Isolation until 06/15. 06/12: On 77% FiO2, 60 L/min air Vo. Advised to continue incentive spirometry, Pep and prone position 06/13: FiO2 has decreased to 60%. Continue management. 2. Acute COVID 19 unvaccinated. onset 05/24, quarantine through 06/13 on dexamethasone out of the window for remdesivir 3. Acute kidney injury resolved. Creatinine improved from 1.84-0.8 4. VTE prophylaxis: LMWH Total time of the visit including total time spent in counseling or coordination of care, (more than 50% of the total time, spent in obtaining medical information from nurses and other ancillary care providers,explaining to the patient about labs, imaging, diagnosis and management), consultants, review of labs and imaging is 30 minutes. Charges/Coding Visit Charges Inpatient E&M: 44948 Subs Hosp L2
[2021-06-13] MEDS: 0.9% Saline Lock 10 ML Syringe IV (23:05)
[2021-06-14] VITALS (19 sets, daily range): BP systolic 115–126; BP diastolic 67–78; PULSE 42–73; RESP 18–22; TEMP 36.4–36.6; O2SAT 84–100
[2021-06-14 06:17] LABS: Hematocrit 39.5 % (40-54); Hemoglobin 13.7 g/dL (13.0-16.5); Mean Corp Hgb Conc 34.7 g/dL (32-36); Mean Corpuscular Hgb 31.3 pg (27.0-32.0); Mean Corpuscular Volume 90.2 fL (80-94); Mean Platelet Vol. 11.5 fl (6.2-12.0); POSITIVE COUNT YES; POSITIVE MORPHOLOGY YES; Platelet Count 443 K/mm3 (150-450); RBC Distribution Width CV 12.6 % (11.6-14.6); RBC Distribution Width SD 41.9 fl (35.1-43.9); Red Blood Count 4.38 M/mm3 (4.6-6.2); White Blood Count 19.7 K/mm3 (4.4-11.0)
[2021-06-14 06:24] LABS: Differential Indicated MANUAL DIFF
[2021-06-14 06:43] LABS: ALB/GLOB Ratio 0.4 RATIO (0.9-2.4); AST(SGOT) 29 U/L (15-37); Alanine Aminotransfer ALT/SGPT 83 U/L (16-61); Albumin, Serum 2.2 g/dL (3.2-5.0); Alkaline Phosphatase 70 U/L (45-117); Anion Gap 7 (5-15); BUN 19 mg/dL (7-18); BUN/Creat Ratio 22.3 RATIO (10-20); Calcium,Total 8.8 mg/dL (8.5-10.1); Chloride 103 mmol/L (98-107); Creatinine, Serum 0.85 mg/dL (0.70-1.30); EST Glomerular Filtration Rate 100 mL/min (>60); Est Glom Filt Rate - Afr Amer 122 mL/min (>60); Estimated Creatinine Clearance 96.13 ml/min; Glucose 109 mg/dL (74-106); Potassium 4.7 mmol/L (3.5-5.1); Protein, Total 7.2 g/dL (6.4-8.2); Sodium Level 138 mmol/L (136-145)
[2021-06-14 06:48] LABS: Lymphocyte 15 % (19-41); Metamyelocyte 3 % (0-1); Monocyte 5 % (0-10); Myelocyte 3 % (0-0); Neutrophil-Band 2 % (0-5); Neutrophil-Segmented 72 % (47-70); Total Cells Counted 100 (MANUAL DIFF)
[2021-06-14 06:53] LABS: Absolute Lymphocyte Count 2.96 X10^3/uL (0.83-4.51); Absolute Neutrophil Count 15.8 X10^3/uL (2.0-7.7); Lymphocyte # 2.96 X10^3/ul (0.83-4.51); Platelet Estimate ADEQUATE (ADEQ); Red Cell Morphology NORM C+C NORMAL (NORM C&C)
[2021-06-14] MEDS: Enoxaparin 30 MG/0.3 ML Syringe SC ×2 (10:11→20:46)
[2021-06-14] MEDS: dexAMETHasone 2 MG TABLET 6 MG PO (10:11)
[2021-06-14] MEDS: Allopurinol 100 MG Tablet PO ×2 (10:11→20:47)
[2021-06-14] MEDS: 0.9% Saline Lock 10 ML Syringe IV (10:12)
--- NOTE | 2021-06-14 11:05 | NURSING ---
PT SEEMS FRUSTRATED THIS AM. WHEN ASKED IF HE FEELS HIS BREATHING IS IMPROVING, HE STATES WELL PEOPLE KEEP COMING IN HERE MESSING WITH THIS (POINTING TO AIRVO). THEY CHANGE IT THEN HAVE TO COME BACK IN TO CHANGE IT AGAIN. IF PEOPLE DON'T KNOW WHAT THEY ARE DOING, THEN SOMEONE ELSE SHOULD COME IN. ATTEMPTED TO EXPLAIN TO PT THE CHANGES ARE PART OF THE PROCESS OF WEANING HIM OFF O2. PT DOES NOT SEEM TO BE UNDERSTANDING OF THIS. WELL IF MY OXYGEN IS GOOD, WHY CHANGE IT?. AGAIN, TRIED TO EXPLAIN THIS IS PART OF WEANING OFF THE O2. THEN PT STATING HE'S BEEN TRYING TO GET IN TOUCH WITH SOMEONE TO BRING HIM IN FOOD, STATING HE IS NOT HAPPY WITH THE HOSPITAL FOOD. ALSO, PT TAKING VERY SHALLOW BREATHS EVEN WHEN ASKED TO DEEP BREATH. DOES NOT SEEM TO UNDERSTAND NEED FOR C&DB, USE OF IS. WHEN EXPLAINING THIS TO PT, PT LOOKS @ THE TV AND APPEARS UNINTERESTED.
--- NOTE | 2021-06-14 15:18 | PCM.PN.HOSP ---
Subjective Subjective Discussed with nursing staff, patient is getting frustrated. Heart rate in 50s. On air Vo. Objective Data Objective Data Vital Signs: Vital Signs Temp Pulse Resp BP Pulse Ox 97.8 F 56 L 22 H 115/78 100 06/14/21 10:06 06/14/21 14:27 06/14/21 14:27 06/14/21 10:06 06/14/21 14:27 Oxygen Flow Rate (L/min) 55 Oxygen Delivery Method Airvo Weight: 204 lb Body Mass Index (BMI) 31.9 Intake & Output: Intake and Output for Last 24 Hours 06/12/21 06/13/21 06/14/21 23:59 23:59 23:59 Intake Total 50 / 50 550 / 550 530 / 530 Output Total 2024 650 / 650 Balance 50 / 50 -1475 / -1475 -120 / -120 Medical Nutrition Assessment Dietitian: Malnutrition Criteria Met Start: 06/11/21 15:47 Freq: Status: Active Protocol: Document 06/11/21 15:47 SLA (Rec: 06/11/21 15:47 SLA [id number]) Nutrition Malnutrition Evidence of Malnutrition Exists Yes Malnutrition (severe): Acute Illness/Injury Evidenced By Suboptimal Energy Intake ( Severe),Weight Loss (Severe) Clinical Problem Altered Nutrient-Related Laboratory Values Status Inactive Problem Acute Disease or Injury Related Malnutrition Etiology related to increased nutritional needs r/t resp failure and covid making it difficult for pt to consume food/fluid adequately to meet est nutrition needs Signs/Symptoms as evidenced by 7.3% wt loss likely in past 2 wks and po intake <50% x >5 days. Status Active Problem Recommendation Dietitian Recommendations/Changes Will continue Regular diet and give ensure enlive w/ meals for increased nutrition if consumed. Lab / Micro Data Result Diagrams: 06/14/21 05:36 06/14/21 05:36 Labs: Laboratory Results - last 24 hr 06/14/21 05:36: WBC 19.7 H, RBC 4.38 L, Hgb 13.7, Hct 39.5 L, MCV 90.2, MCH 31.3, MCHC 34.7, RDW Std Deviation 41.9, RDW Coeff of Moshe 12.6, Plt Count 443, MPV 11.5, Neut % (Auto) Not Reportable, Absolute Neuts (auto) 15.8 H, Absolute Lymphs (auto) 2.96, Total Counted 100, Neutrophils % (Manual) 72 H, Band Neutrophils % 2, Lymphocytes % (Manual) 15 L, Monocytes % (Manual) 5, Metamyelocytes % 3 H, Myelocytes % 3 H, Diff Path Review May foll, Platelet Estimate ADEQUATE, RBC Morphology NORM C+C 06/14/21 05:36: Sodium 138, Potassium 4.7, Chloride 103, Carbon Dioxide 28.0, Anion Gap 7, BUN 19 H, Creatinine 0.85, Estim Creat Clear Calc 96.13, Est GFR (MDRD) Af Amer 122, Est GFR (MDRD) Non-Af 100, BUN/Creatinine Ratio 22.3 H, Glucose 109 H, Calcium 8.8, Total Bilirubin 0.30, AST 29, ALT 83 H, Alkaline Phosphatase 70, Total Protein 7.2, Albumin 2.2 L, Globulin 5.0 H, Albumin/Globulin Ratio 0.4 L Micro: Microbiology 06/08/21 20:14 Sputum, Expectorated/Coughed Gram Stain - Final 06/08/21 20:14 Sputum, Expectorated/Coughed Respiratory Culture - Final Mixed normal respiratory mame. No Streptococcus pneumoniae, beta-hemolytic Streptococcus or Staphylococcus aureus isolated. 06/08/21 11:00 Urine, Clean Catch Streptococcus pneumoniae Antigen (M - Final 06/08/21 11:00 Urine, Clean Catch Legionella Antigen - Final Physical Exam Narrative General: Alert, Oriented x3, Cooperative HEENT: Atraumatic, PERRLA, EOMI, Normocephalic Oral: No Gingival or Mucosal Lesions/ Ulcerations Neck: Supple, No JVD, Negative Carotid Bruits Lungs: Air entry diminished in bilateral lungs. Mild bilateral expiratory rhonchi. Respiratory rate 20 to 22/min. On air Vo Cardiovascular: Sinus bradycardia, Normal S1, Normal S2, No murmurs Abdomen: Bowel Sounds Present, Soft, Non Tender, Non-Distended : No renal angle tenderness. No suprapubic tenderness. Extremities: No edema, Capillary Refill Less than 3 Seconds Skin: No rashes, No breakdown Musculoskeletal: No Tenderness to Palpation of Joints or Extremities Neurological: Cranial nerves II-XII grossly intact, DTR 2+/4 and Symmetrical, Neuro grossly intact Psych/Mental Status: Normal Affect, Appropriate. Assessment & Plan Assessment/Plan (1) Acute respiratory failure with hypoxia: (2) Pneumonia due to 2019-nCoV: (3) Acute kidney injury: PLAN: 1. acute respiratory failure secondary to bilateral COVID-19 pneumonia with bacterial superinfection/pneumonia: Patient sputum culture showing 3+ WBC, 3+ gram-positive cocci in clusters, 2+ gram-negative rods. Prelim sputum culture 3+ alphahemolytic streptococci. Started on IV ceftriaxone 2 g daily. Continue air Vo, incentive spirometry and PEP. CT chest negative for PE. Bilateral interstitial pulmonary infiltrates. Urinary antigens are negative. D-dimer elevated. Consult ID to see indication for baricitinib. Furosemide challenge as needed. 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 Repeat chest x-ray. IV fluid was discontinued yesterday. Lasix was given. Repeat Lasix 20 mg IV 1 dose. BP 118/69. Ceftriaxone was added yesterday. ABG ordered. Critical Power Install Technician/pulmonary consult. Inflammatory markers ordered 06/11: Inflammatory markers are elevated especially CRP and D-dimer. Repeat chest x-ray shows progressive bilateral pulmonary infiltrates worse in the right hemithorax. Seen by ID and not candidate for baricitinib because of history for duration of hypoxia and bacterial pneumonia. Isolation until 06/15. 06/12: On 77% FiO2, 60 L/min air Vo. Advised to continue incentive spirometry, Pep and prone position 06/13: FiO2 has decreased to 60%. Continue management. 06/14: Encouraged incentive spirometry Pep. Expect long course of recovery. Patient completing dexamethasone on 06/15 2. Acute COVID 19 unvaccinated. onset 05/24, quarantine through 06/13 on dexamethasone out of the window for remdesivir 3. Acute kidney injury resolved. Creatinine improved from 1.84-0.8 4. VTE prophylaxis: LMWH Total time of the visit including total time spent in counseling or coordination of care, (more than 50% of the total time, spent in obtaining medical information from nurses and other ancillary care providers,explaining to the patient about labs, imaging, diagnosis and management), consultants, review of labs and imaging is 30 minutes. Charges/Coding Visit Charges Inpatient E&M: 01518 Subs Hosp L2
--- NOTE | 2021-06-14 16:04 | NURSING ---
PT AMBULATING FORWARD & BACK SHORT DISTANCE
[2021-06-15] VITALS (19 sets, daily range): BP systolic 86–127; BP diastolic 71–115; PULSE 43–90; RESP 16–22; TEMP 36.1–36.5; O2SAT 83–97
[2021-06-15 06:57] LABS: Hemoglobin 13.7 g/dL (13.0-16.5); Mean Corp Hgb Conc 33.4 g/dL (32-36); Mean Corpuscular Hgb 30.3 pg (27.0-32.0); Mean Corpuscular Volume 90.7 fL (80-94); Mean Platelet Vol. 11.3 fl (6.2-12.0); POSITIVE COUNT YES; POSITIVE MORPHOLOGY YES; Platelet Count 421 K/mm3 (150-450); RBC Distribution Width CV 12.7 % (11.6-14.6); RBC Distribution Width SD 41.6 fl (35.1-43.9); Red Blood Count 4.52 M/mm3 (4.6-6.2); White Blood Count 19.3 K/mm3 (4.4-11.0)
[2021-06-15 07:01] LABS: Differential Indicated MANUAL DIFF
[2021-06-15 07:26] LABS: ALB/GLOB Ratio 0.5 RATIO (0.9-2.4); AST(SGOT) 32 U/L (15-37); Alanine Aminotransfer ALT/SGPT 98 U/L (16-61); Albumin, Serum 2.3 g/dL (3.2-5.0); Alkaline Phosphatase 72 U/L (45-117); Anion Gap 9 (5-15); BUN 23 mg/dL (7-18); BUN/Creat Ratio 27.8 RATIO (10-20); Calcium,Total 9.1 mg/dL (8.5-10.1); Chloride 100 mmol/L (98-107); Creatinine, Serum 0.83 mg/dL (0.70-1.30); EST Glomerular Filtration Rate 104 mL/min (>60); Est Glom Filt Rate - Afr Amer 126 mL/min (>60); Estimated Creatinine Clearance 98.44 ml/min; Globulin 4.9 g/dL (2.2-4.2); Glucose 106 mg/dL (74-106); Potassium 4.8 mmol/L (3.5-5.1); Protein, Total 7.2 g/dL (6.4-8.2); Sodium Level 136 mmol/L (136-145)
[2021-06-15 07:41] LABS: Lymphocyte 21 % (19-41); Metamyelocyte 2 % (0-1); Monocyte 1 % (0-10); Neutrophil-Segmented 76 % (47-70); Total Cells Counted 100 (MANUAL DIFF)
[2021-06-15 07:42] LABS: Platelet Estimate ADEQUATE (ADEQ); Platelet Morphology LARGE; Red Cell Morphology NORM C+C NORMAL (NORM C&C)
[2021-06-15 07:43] LABS: Absolute Lymphocyte Count 4.06 X10^3/uL (0.83-4.51); Absolute Neutrophil Count 14.7 X10^3/uL (2.0-7.7); Lymphocyte # 4.06 X10^3/ul (0.83-4.51); Neutrophil # 14.69 X10^3/uL (2.7-7.7)
[2021-06-15] MEDS: Allopurinol 100 MG Tablet PO ×2 (09:46→21:16)
[2021-06-15] MEDS: dexAMETHasone 2 MG TABLET 6 MG PO (09:46)
[2021-06-15] MEDS: Enoxaparin 30 MG/0.3 ML Syringe SC ×2 (09:47→21:16)
--- NOTE | 2021-06-15 09:52 | PN.CC_ITS ---
Assessment & Plan Assessment/Plan (1) Acute respiratory failure with hypoxia: (2) COVID-19: PLAN: RECOMMENDATIONS: 1. Wean supplemental oxygen to maintain saturations at or above 90%. 2. Continue empiric antimicrobials to complete 7-day treatment course. 3. Continue Decadron to complete 10 days of therapy. 4. Continue prophylactic Lovenox. 5. Awake prone positioning was encouraged. 6. Encourage incentive spirometer use and mobilize patient as tolerated. IMPRESSIONS: 1. Acute hypoxemic respiratory failure secondary to COVID-19 pneumonia The patient was initially admitted to the hospital on June 06 after he was referred for monoclonal antibody infusion, but was subsequently found to be hypoxemic. The patient was not felt to be a candidate for remdesivir or baricitinib. The patient remains on Decadron, which will be continued to complete a 10-day treatment course. CTA was negative for PE. Therefore, the patient will be continued on prophylactic Lovenox. Continue to wean supplemental oxygen for saturations greater than 90%. Diuretics can be utilized as needed to maintain euvolemic state. This note was generated with [employer] dictation software. It may contain incorrect words, spelling, and punctuation that were not noted in checking the note before signing. Subjective Subjective The patient was seen and examined at the bedside this morning. Events from the last 24 hours have been reviewed. The patient is currently afebrile, he modynamically stable and maintaining appropriate oxygen saturations on 12 L/min via nasal cannula. The patient is currently documented to be overall net +4.4 L for the hospitalization. Renal function is stable. The patient remains on antimicrobials, Decadron and prophylactic Lovenox. Objective Data Objective Data The patient's most recent lab work, culture data and imaging studies have all been personally reviewed. Vital Signs: Vital Signs Temp Pulse Resp BP Pulse Ox 97.5 F L 70 20 H 86/75 L 90 06/15/21 09:38 06/15/21 09:38 06/15/21 09:38 06/15/21 09:38 06/15/21 09:38 Oxygen Flow Rate (L/min) 12 Oxygen Delivery Method Nasal Cannula Weight: 92.533 kg Body Mass Index (BMI) 31.9 Intake & Output: Intake and Output for Last 24 Hours 06/13/21 06/14/21 06/15/21 23:59 23:59 23:59 Intake Total 550 / 550 1250 / 1250 800 / 800 Output Total 2024 1150 / 1150 1200 / 1200 Balance -1475 / -1475 100 / 100 -400 / -400 Medical Nutrition Assessment Dietitian: Malnutrition Criteria Met Start: 06/11/21 15:47 Freq: Status: Active Protocol: Document 06/11/21 15:47 SLA (Rec: 06/11/21 15:47 SLA [id number]) Nutrition Malnutrition Evidence of Malnutrition Exists Yes Malnutrition (severe): Acute Illness/Injury Evidenced By Suboptimal Energy Intake ( Severe),Weight Loss (Severe) Clinical Problem Altered Nutrient-Related Laboratory Values Status Inactive Problem Acute Disease or Injury Related Malnutrition Etiology related to increased nutritional needs r/t resp failure and covid making it difficult for pt to consume food/fluid adequately to meet est nutrition needs Signs/Symptoms as evidenced by 7.3% wt loss likely in past 2 wks and po intake <50% x >5 days. Status Active Problem Recommendation Dietitian Recommendations/Changes Will continue Regular diet and give ensure enlive w/ meals for increased nutrition if consumed. Lab / Micro Data Attestation: I reviewed the patient's lab results. Result Diagrams: 06/15/21 06:15 06/15/21 06:15 Labs: Laboratory Results - last 24 hr 06/15/21 06:15: WBC 19.3 H, RBC 4.52 L, Hgb 13.7, Hct 41.0, MCV 90.7, MCH 30.3, MCHC 33.4, RDW Std Deviation 41.6, RDW Coeff of Moshe 12.7, Plt Count 421, MPV 11.3, Neut % (Auto) Not Reportable, Absolute Neuts (auto) 14.7 H, Absolute Lymphs (auto) 4.06, Total Counted 100, Neutrophils % (Manual) 76 H, Lymphocytes % (Manual) 21, Monocytes % (Manual) 1, Metamyelocytes % 2 H, Diff Path Review May foll, Platelet Estimate ADEQUATE, Plt Morphology Comment LARGE, RBC Morphology NORM C+C 06/15/21 06:15: Sodium 136, Potassium 4.8, Chloride 100, Carbon Dioxide 27.0, Anion Gap 9, BUN 23 H, Creatinine 0.83, Estim Creat Clear Calc 98.44, Est GFR (MDRD) Af Amer 126, Est GFR (MDRD) Non-Af 104, BUN/Creatinine Ratio 27.8 H, Glucose 106, Calcium 9.1, Total Bilirubin 0.40, AST 32, ALT 98 H, Alkaline Ph osphatase 72, Total Protein 7.2, Albumin 2.3 L, Globulin 4.9 H, Albumin/Globulin Ratio 0.5 L Micro: Microbiology 06/08/21 20:14 Sputum, Expectorated/Coughed Gram Stain - Final 06/08/21 20:14 Sputum, Expectorated/Coughed Respiratory Culture - Final Mixed normal respiratory mame. No Streptococcus pneumoniae, beta-hemolytic Streptococcus or Staphylococcus aureus isolated. 06/08/21 11:00 Urine, Clean Catch Streptococcus pneumoniae Antigen (M - Final 06/08/21 11:00 Urine, Clean Catch Legionella Antigen - Final Physical Exam Const alert and oriented x3 General Appearance: cooperative Nutritional Appearance: obese HEENT normocephalic, head/scalp atraumatic and moist oral mucous membranes Eyes PERRL, EOMs intact bilaterally and conjunctivae normal Neck supple General: trachea midline Chest inspection of chest normal Resp normal respiratory effort Auscultation: diminished lung sounds Cardio S1 normal heart sound and S2 normal heart sound Rate: bradycardia GI normal to inspection, nondistended, normoactive bowel sounds Extremity no clubbing, cyanosis or edema Skin no rashes or lesions noted Neuro CN's II-XII intact bilaterally, moves all extremities and no focal motor deficits Psych cooperative and affect normal Charges/Coding Visit Charges Inpatient E&M: 53240 Subs Hosp L2
[2021-06-15] MEDS: Polyethylene Glycol 3350 17 GM PACKET PO (10:51)
--- NOTE | 2021-06-15 12:13 | PN.HOSP_ITS ---
Subjective Subjective Patient subjectively reports improvement in breathing. WBC count stable. COVID-19 enhanced droplet precaution until 06/15. Did not move bowels since his date but patient refused for senna S. MiraLAX adjusted. Afebrile. Objective Data Objective Data Vital Signs: Vital Signs Temp Pulse Resp BP Pulse Ox 97.5 F L 67 20 H 86/75 L 92 06/15/21 09:38 06/15/21 10:00 06/15/21 09:38 06/15/21 09:38 06/15/21 11:59 Oxygen Flow Rate (L/min) 12 Oxygen Delivery Method Nasal Cannula Weight: 204 lb Body Mass Index (BMI) 31.9 Intake & Output: Intake and Output for Last 24 Hours 06/13/21 06/14/21 06/15/21 23:59 23:59 23:59 Intake Total 550 / 550 1250 / 1250 1330 / 1330 Output Total 2024 / 2024 1150 / 1150 1450 / 1450 Balance -1475 / -1475 100 / 100 -120 / -120 Medical Nutrition Assessment Dietitian: Malnutrition Criteria Met Start: 06/11/21 15:47 Freq: Status: Active Protocol: Document 06/11/21 15:47 SLA (Rec: 06/11/21 15:47 SLA [id number]) Nutrition Malnutrition Evidence of Malnutrition Exists Yes Malnutrition (severe): Acute Illness/Injury Evidenced By Suboptimal Energy Intake ( Severe),Weight Loss (Severe) Clinical Problem Altered Nutrient-Related Laboratory Values Status Inactive Problem Acute Disease or Injury Related Malnutrition Etiology related to increased nutritional needs r/t resp failure and covid making it difficult for pt to consume food/fluid adequately to meet est nutrition needs Signs/Symptoms as evidenced by 7.3% wt loss likely in past 2 wks and po intake <50% x >5 days. Status Active Problem Recommendation Dietitian Recommendations/Changes Will continue Regular diet and give ensure enlive w/ meals for increased nutrition if consumed. Lab / Micro Data Result Diagrams: 06/15/21 06:15 06/15/21 06:15 Labs: Laboratory Results - last 24 hr 06/15/21 06:15: WBC 19.3 H, RBC 4.52 L, Hgb 13.7, Hct 41.0, MCV 90.7, MCH 30.3, MCHC 33.4, RDW Std Deviation 41.6, RDW Coeff of Moshe 12.7, Plt Count 421, MPV 11.3, Neut % (Auto) Not Reportable, Absolute Neuts (auto) 14.7 H, Absolute Lymphs (auto) 4.06, Total Counted 100, Neutrophils % (Manual) 76 H, Lymphocytes % (Manual) 21, Monocytes % (Manual) 1, Metamyelocytes % 2 H, Diff Path Review May foll, Platelet Estimate ADEQUATE, Plt Morphology Comment LARGE, RBC Morphology NORM C+C 06/15/21 06:15: Sodium 136, Potassium 4.8, Chloride 100, Carbon Dioxide 27.0, Anion Gap 9, BUN 23 H, Creatinine 0.83, Estim Creat Clear Calc 98.44, Est GFR (MDRD) Af Amer 126, Est GFR (MDRD) Non-Af 104, BUN/Creatinine Ratio 27.8 H, Glu cose 106, Calcium 9.1, Total Bilirubin 0.40, AST 32, ALT 98 H, Alkaline Dominic sphatase 72, Total Protein 7.2, Albumin 2.3 L, Globulin 4.9 H, Albumin/Globulin Ratio 0.5 L Micro: Microbiology 06/08/21 20:14 Sputum, Expectorated/Coughed Gram Stain - Final 06/08/21 20:14 Sputum, Expectorated/Coughed Respiratory Culture - Final Mixed normal respiratory mame. No Streptococcus pneumoniae, beta-hemolytic Streptococcus or Staphylococcus aureus isolated. 06/08/21 11:00 Urine, Clean Catch Streptococcus pneumoniae Antigen (M - Final 06/08/21 11:00 Urine, Clean Catch Legionella Antigen - Final Physical Exam Narrative General: Alert, Oriented x3, Cooperative HEENT: Atraumatic, PERRLA, EOMI, Normocephalic Oral: No Gingival or Mucosal Lesions/ Ulcerations Neck: Supple, No JVD, Negative Carotid Bruits Lungs: Air entry diminished in bilateral lungs. Mild subtle expiratory rhonchi. On 12 L high flow oxygen. Cardiovascular: Sinus bradycardia, Normal S1, Normal S2, No murmurs Abdomen: Bowel Sounds Present, Soft, Non Tender, Non-Distended : No renal angle tenderness. No suprapubic tenderness. Extremities: No edema, Capillary Refill Less than 3 Seconds Skin: No rashes, No breakdown Musculoskeletal: No Tenderness to Palpation of Joints or Extremities Neurological: Cranial nerves II-XII grossly intact, DTR 2+/4 and Symmetrical, Neuro grossly intact Psych/Mental Status: Normal Affect, Appropriate. Assessment & Plan Assessment/Plan (1) Acute respiratory failure with hypoxia: (2) Pneumonia due to 2019-nCoV: (3) Acute kidney injury: PLAN: 1. acute respiratory failure secondary to bilateral COVID-19 pneumonia with bacterial superinfection/pneumonia: Patient sputum culture showing 3+ WBC, 3+ gram-positive cocci in clusters, 2+ gram-negative rods. Prelim sputum culture 3+ alphahemolytic streptococci. Started on IV ceftriaxone 2 g daily. Continue air Vo, incentive spirometry and PEP. CT chest negative for PE. Bilateral interstitial pulmonary infiltrates. Urinary antigens are negative. D-dimer elevated. Consult ID to see indication for baricitinib. Furosemide challenge as needed. 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 Repeat chest x-ray. IV fluid was discontinued yesterday. Lasix was given. Repeat Lasix 20 mg IV 1 dose. BP 118/69. Ceftriaxone was added yesterday. ABG ordered. Gps Navigation Installer/pulmonary consult. Inflammatory markers ordered 06/11: Inflammatory markers are elevated especially CRP and D-dimer. Repeat chest x-ray shows progressive bilateral pulmonary infiltrates worse in the right hemithorax. Seen by ID and not candidate for baricitinib because of history for duration of hypoxia and bacterial pneumonia. Isolation until 06/15. 06/12: On 77% FiO2, 60 L/min air Vo. Advised to continue incentive spirometry, Pep and prone position 06/13: FiO2 has decreased to 60%. Continue management. 06/14: Encouraged incentive spirometry Pep. Expect long course of recovery. Patient completing dexamethasone on 06/15 06/15: Oxygenation is improving. Isolate until 06/15; discontinue isolation on 06/16, as per ID recommendation. 2. Acute COVID 19 unvaccinated. onset 05/24, quarantine through 06/13 on dexamethasone out of the window for remdesivir 3. Acute kidney injury resolved. Creatinine improved from 1.84-0.8 Mild constipation: MiraLAX daily. Patient refusing for senna S. 4. VTE prophylaxis: LMWH Total time of the visit including total time spent in counseling or coordination of care, (more than 50% of the total time, spent in obtaining medical information from nurses and other ancillary care providers,explaining to the patient about labs, imaging, diagnosis and management), consultants, review of labs and imaging is 30 minutes. Charges/Coding Visit Charges Inpatient E&M: 32700 Subs Hosp L2
[2021-06-16] VITALS (19 sets, daily range): BP systolic 100–122; BP diastolic 69–78; PULSE 47–72; RESP 18; TEMP 36.4–36.6; O2SAT 91–97
[2021-06-16 06:48] LABS: Absolute Lymphocyte Count 2.59 X10^3/uL (0.83-4.51); Absolute Neutrophil Count 15.9 X10^3/uL (2.0-7.7); Basophil% 0.5 % (0-1); Eosinophil# 0.01 X10^3/uL; Hematocrit 39.1 % (40-54); Hemoglobin 12.8 g/dL (13.0-16.5); Lymphocyte # 2.59 X10^3/ul (0.83-4.51); Lymphocyte % 12.7 % (19-41); Mean Corp Hgb Conc 32.7 g/dL (32-36); Mean Corpuscular Hgb 30.2 pg (27.0-32.0); Mean Corpuscular Volume 92.2 fL (80-94); Mean Platelet Vol. 11.7 fl (6.2-12.0); Monocyte# 1.03 X10^3/uL; NRBC Flagged by Analyzer 0 % (0-5); Neutrophil # 15.85 X10^3/uL (2.7-7.7); Neutrophil % 77.7 % (47-70); Platelet Count 407 K/mm3 (150-450); RBC Distribution Width CV 12.8 % (11.6-14.6); RBC Distribution Width SD 42.9 fl (35.1-43.9); Red Blood Count 4.24 M/mm3 (4.6-6.2); White Blood Count 20.4 K/mm3 (4.4-11.0)
[2021-06-16 07:15] LABS: ALB/GLOB Ratio 0.5 RATIO (0.9-2.4); AST(SGOT) 49 U/L (15-37); Alanine Aminotransfer ALT/SGPT 143 U/L (16-61); Albumin, Serum 2.4 g/dL (3.2-5.0); Alkaline Phosphatase 76 U/L (45-117); Anion Gap 7 (5-15); BUN 28 mg/dL (7-18); BUN/Creat Ratio 26.9 RATIO (10-20); Calcium,Total 9.2 mg/dL (8.5-10.1); Chloride 102 mmol/L (98-107); Creatinine, Serum 1.04 mg/dL (0.70-1.30); EST Glomerular Filtration Rate 80 mL/min (>60); Est Glom Filt Rate - Afr Amer 97 mL/min (>60); Estimated Creatinine Clearance 78.56 ml/min; Globulin 4.6 g/dL (2.2-4.2); Glucose 117 mg/dL (74-106); Potassium 4.8 mmol/L (3.5-5.1); Sodium Level 137 mmol/L (136-145)
[2021-06-16] MEDS: Enoxaparin 30 MG/0.3 ML Syringe SC ×2 (08:51→22:28)
[2021-06-16] MEDS: Polyethylene Glycol 3350 17 GM PACKET PO (08:52)
[2021-06-16] MEDS: Allopurinol 100 MG Tablet PO ×2 (08:52→22:28)
--- NOTE | 2021-06-16 09:13 | NURSING ---
PT SITTING IN CHAIR. VOICES FRUSTRATION OVER CONTINUED HOSPITAL STAY. PT WILL NOT ELABORATE FURTHER TO THIS NURSE. PT REQUESTING TO SPEAK TO AND WANTS TO RECORD CONVERSATION WITH . ALSO STATES HIS DISABILITY AGRICULTURAL ECONOMICS PROFESSOR WILL BE CALLING TODAY BECAUSE HE DOESN'T UNDERSTAND WHY PT IS STILL HERE. PT COOPERATIVE WITH MUCH EXPLANATION AND EMOTIONAL SUPPORT. PT CUTS OFF ATTEMPTED EXPLANATIONS ON HIS CURRENT OXYGEN REQUIREMENTS. WILL CONTINUE TO MONITOR AND GIVE EMOTIONAL SUPPORT. PT IS AWARE HE'S NOW OUT OF PRECAUTIONS AND CAN HAVE A VISITOR.
--- NOTE | 2021-06-16 09:55 | CASEMGMT ---
Social Work Note SW received call from Hanh Martinez CM requesting update on pt. EDDA provided update. Hanh states her direct number is [phone]. Sofia Eddy WHEEL SHOP SUPERVISOR, SVP [employer]
[2021-06-16 10:24] LABS: Pathologist Review Reviewed
--- NOTE | 2021-06-16 11:25 | PN.CC_ITS ---
Assessment & Plan Assessment/Plan (1) Acute respiratory failure with hypoxia: (2) COVID-19: PLAN: RECOMMENDATIONS: 1. Wean supplemental oxygen to maintain saturations at or above 90%. 2. Continue empiric antimicrobials to complete 7-day treatment course. 3. Continue Decadron to complete 10 days of therapy. 4. Continue prophylactic Lovenox. 5. Awake prone positioning was encouraged. 6. Encourage incentive spirometer use and mobilize patient as tolerated. IMPRESSIONS: 1. Acute hypoxemic respiratory failure secondary to COVID-19 pneumonia The patient was initially admitted to the hospital on June 06 after he was referred for monoclonal antibody infusion, but was subsequently found to be hypoxemic. The patient was not felt to be a candidate for remdesivir or baricitinib. The patient completed a 10-day course of Decadron. CTA was negative for PE. Therefore, the patient will be continued on prophylactic Lo venox. Continue to wean supplemental oxygen for saturations greater than 90%. Diuretics can be utilized as needed to maintain euvolemic state. Agree with Lasix today. Anticipate discharge when patient can tolerate ambulation on 6 L or less This note was generated with [employer] dictation software. It may contain incorrect words, spelling, and punctuation that were not noted in checking the note before signing. Subjective Subjective Patient did okay overnight. No acute issues were reported. Patient is still requiring Airvo to maintain saturations. Attempts at transition to nasal cannula have been unsuccessful thus far. Patient reports mild production with cough. No chest pain is reported. Patient is reportedly frustrated that he cannot go home Objective Data Objective Data Vital Signs: Vital Signs Temp Pulse Resp BP Pulse Ox 36.4 C L 55 L 18 106/75 93 06/16/21 08:39 06/16/21 08:39 06/16/21 08:39 06/16/21 08:39 06/16/21 08:39 Oxygen Flow Rate (L/min) 45 Oxygen Delivery Method Airvo Weight: 92.533 kg Body Mass Index (BMI) 31.9 Intake & Output: Intake and Output for Last 24 Hours 06/14/21 06/15/21 06/16/21 23:59 23:59 23:59 Intake Total 1250 / 1250 1730 / 1730 350 / 350 Output Total 1150 / 1150 2350 / 2350 500 / 500 Balance 100 / 100 -620 / -620 -150 / -150 Medical Nutrition Assessment Dietitian: Malnutrition Criteria Met Start: 06/11/21 15:47 Freq: Status: Active Protocol: Document 06/11/21 15:47 GEOFFREY (Rec: 06/11/21 15:47 SLA [id number]) Nutrition Malnutrition Evidence of Malnutrition Exists Yes Malnutrition (severe): Acute Illness/Injury Evidenced By Suboptimal Energy Intake ( Severe),Weight Loss (Severe) Clinical Problem Altered Nutrient-Related Laboratory Values Status Inactive Problem Acute Disease or Injury Related Malnutrition Etiology related to increased nutritional needs r/t resp failure and covid making it difficult for pt to consume food/fluid adequately to meet est nutrition needs Signs/Symptoms as evidenced by 7.3% wt loss likely in past 2 wks and po intake <50% x >5 days. Status Active Problem Recommendation Dietitian Recommendations/Changes Will continue Regular diet and give ensure enlive w/ meals for increased nutrition if consumed. Lab / Micro Data Result Diagrams: 06/16/21 05:40 06/16/21 05:10 Labs: Laboratory Results - last 24 hr 06/13/21 06:57: Diff Path Review Reviewed 06/16/21 05:10: Sodium 137, Potassium 4.8, Chloride 102, Carbon Dioxide 28.0, Anion Gap 7, BUN 28 H, Creatinine 1.04, Estim Creat Clear Calc 78.56, Est GFR (MDRD) Af Amer 97, Est GFR (MDRD) Non-Af 80, BUN/Creatinine Ratio 26.9 H, Gluc ose 117 H, Calcium 9.2, Total Bilirubin 0.30, AST 49 H, ALT 143 H, Alkaline Phosphatase 76, Total Protein 7.0, Albumin 2.4 L, Globulin 4.6 H, Albumin/Globulin Ratio 0.5 L 06/16/21 05:40: WBC 20.4 H, RBC 4.24 L, Hgb 12.8 L, Hct 39.1 L, MCV 92.2, MCH 30.2, MCHC 32.7, RDW Std Deviation 42.9, RDW Coeff of Moshe 12.8, Plt Count 407, MPV 11.7, Immature Gran % (Auto) 4.100 H, Neut % (Auto) 77.7 H, Lymph % (Auto) 12.7 L, [place] % (Auto) 5.0, Eos % (Auto) 0.0, Baso % (Auto) 0.5, Absolute Neuts (auto) 15.9 H, Absolute Lymphs (auto) 2.59, Nucleated RBC % 0 Micro: Microbiology 06/08/21 20:14 Sputum, Expectorated/Coughed Gram Stain - Final 06/08/21 20:14 Sputum, Expectorated/Coughed Respiratory Culture - Final Mixed normal respiratory mame. No Streptococcus pneumoniae, beta-hemolytic Streptococcus or Staphylococcus aureus isolated. 06/08/21 11:00 Urine, Clean Catch Streptococcus pneumoniae Antigen (M - Final 06/08/21 11:00 Urine, Clean Catch Legionella Antigen - Final Physical Exam Const alert and oriented x3 General Appearance: cooperative Nutritional Appearance: obese HEENT normocephalic, head/scalp atraumatic and moist oral mucous membranes Eyes PERRL, EOMs intact bilaterally and conjunctivae normal Neck supple General: trachea midline Chest inspection of chest normal Chest: symmetrical chest wall rise; Negative for crepitus Resp normal respiratory effort Auscultation: diminished lung sounds Cardio S1 normal heart sound and S2 normal heart sound Rate: bradycardia GI normal to inspection, nondistended, normoactive bowel sounds Extremity no clubbing, cyanosis or edema Skin no rashes or lesions noted Neuro CN's II-XII intact bilaterally, moves all extremities and no focal motor deficits Psych cooperative and affect normal Charges/Coding Visit Charges Inpatient E&M: 88345 Subs Hosp L2
[2021-06-16] MEDS: Furosemide 40 MG/4 ML Vial IV (12:29)
--- NOTE | 2021-06-16 15:53 | PN.HOSP_ITS ---
Subjective Subjective Upset about the lack of significant improvement and information. Objective Data Objective Data Vital Signs: Vital Signs Temp Pulse Resp BP Pulse Ox 36.6 C 68 18 100/69 96 06/16/21 14:58 06/16/21 14:59 06/16/21 14:58 06/16/21 14:58 06/16/21 15:13 Oxygen Flow Rate (L/min) 10 Oxygen Delivery Method High Flow Weight: 92.533 kg Body Mass Index (BMI) 31.9 Intake & Output: Intake and Output for Last 24 Hours 06/14/21 06/15/21 06/16/21 23:59 23:59 23:59 Intake Total 1250 / 1250 1730 / 1730 350 / 350 Output Total 1150 / 1150 2350 / 2350 1525 / 1525 Balance 100 / 100 -620 / -620 -1175 / -1175 Medical Nutrition Assessment Dietitian: Malnutrition Criteria Met Start: 06/11/21 15:47 Freq: Status: Active Protocol: Document 06/11/21 15:47 SLA (Rec: 06/11/21 15:47 SLA [id number]) Nutrition Malnutrition Evidence of Malnutrition Exists Yes Malnutrition (severe): Acute Illness/Injury Evidenced By Suboptimal Energy Intake ( Severe),Weight Loss (Severe) Clinical Problem Altered Nutrient-Related Laboratory Values Status Inactive Problem Acute Disease or Injury Related Malnutrition Etiology related to increased nutritional needs r/t resp failure and covid making it difficult for pt to consume food/fluid adequately to meet est nutrition needs Signs/Symptoms as evidenced by 7.3% wt loss likely in past 2 wks and po intake <50% x >5 days. Status Active Problem Recommendation Dietitian Recommendations/Changes Will continue Regular diet and give ensure enlive w/ meals for increased nutrition if consumed. Lab / Micro Data Result Diagrams: 06/16/21 05:40 06/16/21 05:10 Labs: Laboratory Results - last 24 hr 06/13/21 06:57: Diff Path Review Reviewed 06/16/21 05:10: Sodium 137, Potassium 4.8, Chloride 102, Carbon Dioxide 28.0, Anion Gap 7, BUN 28 H, Creatinine 1.04, Estim Creat Clear Calc 78.56, Est GFR (MDRD) Af Amer 97, Est GFR (MDRD) Non-Af 80, BUN/Creatinine Ratio 26.9 H, Glucose 117 H, Calcium 9.2, Total Bilirubin 0.30, AST 49 H, ALT 143 H, Alkaline Phosphatase 76, Total Protein 7.0, Albumin 2.4 L, Globulin 4.6 H, Albumin/Globulin Ratio 0.5 L 06/16/21 05:40: WBC 20.4 H, RBC 4.24 L, Hgb 12.8 L, Hct 39.1 L, MCV 92.2, MCH 30.2, MCHC 32.7, RDW Std Deviation 42.9, RDW Coeff of Moshe 12.8, Plt Count 407, MPV 11.7, Immature Gran % (Auto) 4.100 H, Neut % (Auto) 77.7 H, Lymph % (Auto) 12.7 L, [place] % (Auto) 5.0, Eos % (Auto) 0.0, Baso % (Auto) 0.5, Absolute Neuts (auto) 15.9 H, Absolute Lymphs (auto) 2.59, Nucleated RBC % 0 Micro: Microbiology 06/08/21 20:14 Sputum, Expectorated/Coughed Gram Stain - Final 06/08/21 20:14 Sputum, Expectorated/Coughed Respiratory Culture - Final Mixed normal respiratory mame. No Streptococcus pneumoniae, beta-hemolytic Streptococcus or Staphylococcus aureus isolated. 06/08/21 11:00 Urine, Clean Catch Streptococcus pneumoniae Antigen (M - Final 06/08/21 11:00 Urine, Clean Catch Legionella Antigen - Final Physical Exam Narrative General: Alert, Oriented x3, Cooperative HEENT: Atraumatic, PERRLA, EOMI, Normocephalic Oral: No Gingival or Mucosal Lesions/ Ulcerations Neck: Supple, No JVD, Negative Carotid Bruits Lungs: Air entry diminished in bilateral lungs. Mild subtle expiratory rhonchi. On 12 L high flow oxygen. Cardiovascular: Sinus bradycardia, Normal S1, Normal S2, No murmurs Abdomen: Bowel Sounds Present, Soft, Non Tender, Non-Distended : No renal angle tenderness. No suprapubic tenderness. Extremities: No edema, Capillary Refill Less than 3 Seconds Skin: No rashes, No breakdown Musculoskeletal: No Tenderness to Palpation of Joints or Extremities Neurological: Cranial nerves II-XII grossly intact, DTR 2+/4 and Symmetrical, Neuro grossly intact Psych/Mental Status: Normal Affect, Appropriate. Const alert and no apparent distress Constitutional Narrative: up in chair on Airvo. no respiratory distress. no conversational dyspnea. Exam Limitations: no limitations and altered mental status HEENT head/scalp atraumatic Resp normal respiratory effort and no retractions Resp Narrative: coarse breath sounds bilaterally Cardio regular rate, regular rhythm, S1 normal heart sound and S2 normal heart sound GI normal to inspection, nondistended, normoactive bowel sounds, soft to palpation, non-tender and non-distended Extremity normal to inspection Assessment & Plan Assessment/Plan (1) Acute respiratory failure with hypoxia: (2) Pneumonia due to 2019-nCoV: (3) Acute kidney injury: PLAN: 1. acute respiratory failure imroved 2/ COVID 19 on Airvo encouraged IS and flutter valve wean oxygen as able furosemide challenge check bacterial pneumonia work up furosemide challenge infectious work up negative DC CTX (received 8-days) 2. Acute COVID 19 unvaccinated. onset 05/24, quarantine through 06/13 on dexamethasone out of the window for remdesivir 3. Acute kidney injury resolved monitor avoid nephrotoxic agents. 4. VTE prophylaxis: LMWH Greater than 35 minutes of which greater than for percent of time was discussing with the patient about Covid, slow improvements. I also reviewed the CT images and showed the marked abnormality that he had on those. Reassured him that this can take time and that the goal is eventually get him home with oxygen but he is not ready for that at this time because he is requiring too much oxygen. He expressed understanding. He initially wanted to speak to the advocate but seems comfortable with my explanation. Charges/Coding Visit Charges Inpatient E&M: 43567 Subs Hosp L3
[2021-06-17] VITALS (13 sets, daily range): BP systolic 91–132; BP diastolic 57–97; PULSE 59–96; RESP 18; TEMP 36.3–37.2; O2SAT 92–95
[2021-06-17 07:11] LABS: Absolute Lymphocyte Count 3.94 X10^3/uL (0.83-4.51); Absolute Neutrophil Count 10.2 X10^3/uL (2.0-7.7); Basophil# 0.07 X10^3/uL; Basophil% 0.4 % (0-1); Eosinophil# 0.09 X10^3/uL; Eosinophils% 0.6 % (0-5); Hemoglobin 14.2 g/dL (13.0-16.5); Lymphocyte # 3.94 X10^3/ul (0.83-4.51); Lymphocyte % 24.7 % (19-41); Mean Corp Hgb Conc 33.8 g/dL (32-36); Mean Corpuscular Hgb 30.9 pg (27.0-32.0); Mean Corpuscular Volume 91.5 fL (80-94); Monocyte# 1.13 X10^3/uL; Monocyte% 7.1 % (0-10); NRBC Flagged by Analyzer 0 % (0-5); Neutrophil # 10.21 X10^3/uL (2.7-7.7); Neutrophil % 64.1 % (47-70); Platelet Count 391 K/mm3 (150-450); RBC Distribution Width SD 43.3 fl (35.1-43.9); Red Blood Count 4.59 M/mm3 (4.6-6.2); White Blood Count 15.9 K/mm3 (4.4-11.0)
[2021-06-17 07:34] LABS: ALB/GLOB Ratio 0.5 RATIO (0.9-2.4); AST(SGOT) 37 U/L (15-37); Alanine Aminotransfer ALT/SGPT 134 U/L (16-61); Albumin, Serum 2.5 g/dL (3.2-5.0); Alkaline Phosphatase 75 U/L (45-117); Anion Gap 8 (5-15); BUN 25 mg/dL (7-18); BUN/Creat Ratio 23.6 RATIO (10-20); Calcium,Total 8.9 mg/dL (8.5-10.1); Chloride 100 mmol/L (98-107); Creatinine, Serum 1.06 mg/dL (0.70-1.30); EST Glomerular Filtration Rate 78 mL/min (>60); Est Glom Filt Rate - Afr Amer 94 mL/min (>60); Estimated Creatinine Clearance 77.08 ml/min; Globulin 4.6 g/dL (2.2-4.2); Glucose 109 mg/dL (74-106); Potassium 4.6 mmol/L (3.5-5.1); Protein, Total 7.1 g/dL (6.4-8.2); Sodium Level 137 mmol/L (136-145)
[2021-06-17] MEDS: Allopurinol 100 MG Tablet PO ×2 (08:42→20:24)
[2021-06-17] MEDS: Enoxaparin 30 MG/0.3 ML Syringe SC ×2 (08:42→20:24)
[2021-06-17] MEDS: Polyethylene Glycol 3350 17 GM PACKET PO (08:42)
[2021-06-17 09:22] LABS: Pathologist Review Reviewed
[2021-06-17 09:46] LABS: Pathologist Review Reviewed
--- NOTE | 2021-06-17 10:37 | PN.CC_ITS ---
Assessment & Plan Assessment/Plan (1) Acute respiratory failure with hypoxia: (2) COVID-19: PLAN: RECOMMENDATIONS: 1. Wean supplemental oxygen to maintain saturations at or above 90%. 2. Continue empiric antimicrobials to complete 7-day treatment course. 3. Completed Decadron therapy 4. Continue prophylactic Lovenox. 5. Awake prone positioning was encouraged. 6. Encourage incentive spirometer use and mobilize patient as tolerated. 7. Challenge with diuretics 8. Walking oximetry prior to discharge IMPRESSIONS: 1. Acute hypoxemic respiratory failure secondary to COVID-19 pneumonia The patient was initially admitted to the hospital on June 06 after he was referred for monoclonal antibody infusion, but was subsequently found to be hypoxemic. The patient was not felt to be a candidate for remdesivir or ba ricitinib. The patient completed a 10-day course of Decadron. CTA was negative for PE. Therefore, the patient will be continued on prophylactic Lovenox. Continue to wean supplemental oxygen for saturations greater than 90%. Diuretics can be utilized as needed to maintain euvolemic state. Agree with Lasix today. Anticipate discharge when patient can tolerate ambulation on 6 L or less. Once patient able to ambulate on 6 L or less, anticipate follow-up in 4 to 6 weeks in our office This note was generated with [employer] dictation software. It may contain incorrect words, spelling, and punctuation that were not noted in checking the note before signing. Subjective Subjective Patient did okay overnight. No acute issues were reported. Patient subjectively feels improved compared to yesterday. Patient was able to be transitioned to nasal cannula oxygen. No epistaxis has been reported. Objective Data Objective Data Vital Signs: Vital Signs Temp Pulse Resp BP Pulse Ox 36.3 C L 59 L 18 97/70 92 06/17/21 08:38 06/17/21 08:38 06/17/21 08:38 06/17/21 08:38 06/17/21 08:47 Oxygen Flow Rate (L/min) 8 Oxygen Delivery Method High Flow Weight: 92.533 kg Body Mass Index (BMI) 31.9 Intake & Output: Intake and Output for Last 24 Hours 06/15/21 06/16/21 06/17/21 23:59 23:59 23:59 Intake Total 1730 / 1730 350 / 350 700 / 700 Output Total 2350 / 2350 1825 / 1825 Balance -620 / -620 -1475 / -1475 700 / 700 Medical Nutrition Assessment Dietitian: Malnutrition Criteria Met Start: 06/11/21 15:47 Freq: Status: Active Protocol: Document 06/16/21 16:01 (Rec: 06/16/21 16:01 AG [id number]) Nutrition Malnutrition Evidence of Malnutrition Exists Yes Malnutrition (severe): Acute Illness/Injury Evidenced By Suboptimal Energy Intake ( Severe),Weight Loss (Severe) Clinical Problem Altered Nutrient-Related Laboratory Values Status Inactive Problem Acute Disease or Injury Related Malnutrition Etiology severe, acute malnutrition related to inadequate energy intake w/ increased nutrient needs d/t acute illness Signs/Symptoms as evidenced by 7.257kg/7.3% wt loss in past 2 weeks and estimated PO intake meeting < 50% greater than 5 days. Status Active Problem Recommendation Dietitian Recommendations/Changes Continue Regular diet and 4oz ensure enlive w/ meals for increased nutrition if consumed. Lab / Micro Data Result Diagrams: 06/17/21 06:56 06/17/21 06:56 Labs: Laboratory Results - last 24 hr 06/14/21 05:36: Diff Path Review Reviewed 06/15/21 06:15: Diff Path Review Reviewed 06/17/21 06:56: WBC 15.9 H, RBC 4.59 L, Hgb 14.2, Hct 42.0, MCV 91.5, MCH 30.9, MCHC 33.8, RDW Std Deviation 43.3, RDW Coeff of Moshe 13.0, Plt Count 391, MPV 11.0, Immature Gran % (Auto) 3.100 H, Neut % (Auto) 64.1, Lymph % (Auto) 24.7, [place] % (Auto) 7.1, Eos % (Auto) 0.6, Baso % (Auto) 0.4, Absolute Neuts (auto) 10.2 H, Absolute Lymphs (auto) 3.94, Nucleated RBC % 0 06/17/21 06:56: Sodium 137, Potassium 4.6, Chloride 100, Carbon Dioxide 29.0, Anion Gap 8, BUN 25 H, Creatinine 1.06, Estim Creat Clear Calc 77.08, Est GFR (MDRD) Af Amer 94, Est GFR (MDRD) Non-Af 78, BUN/Creatinine Ratio 23.6 H, Glucose 109 H, Calcium 8.9, Total Bilirubin 0.20, AST 37, ALT 134 H, Alkaline Phosphatase 75, Total Protein 7.1, Albumin 2.5 L, Globulin 4.6 H, Albumin/Globulin Ratio 0.5 L Micro: Microbiology 06/08/21 20:14 Sputum, Expectorated/Coughed Gram Stain - Final 06/08/21 20:14 Sputum, Expectorated/Coughed Respiratory Culture - Final Mixed normal respiratory mame. No Streptococcus pneumoniae, beta-hemolytic Streptococcus or Staphylococcus aureus isolated. 06/08/21 11:00 Urine, Clean Catch Streptococcus pneumoniae Antigen (M - Final 06/08/21 11:00 Urine, Clean Catch Legionella Antigen - Final Physical Exam Const alert and oriented x3 General Appearance: cooperative Nutritional Appearance: obese HEENT normocephalic, head/scalp atraumatic and moist oral mucous membranes Eyes PERRL, EOMs intact bilaterally and conjunctivae normal Neck supple General: trachea midline Chest inspection of chest normal Chest: symmetrical chest wall rise; Negative for crepitus Resp normal respiratory effort Auscultation: diminished lung sounds Cardio S1 normal heart sound and S2 normal heart sound Rate: bradycardia GI normal to inspection, nondistended, normoactive bowel sounds Extremity no clubbing, cyanosis or edema Skin no rashes or lesions noted Neuro CN's II-XII intact bilaterally, moves all extremities and no focal motor deficits Psych cooperative and affect normal Charges/Coding Visit Charges Inpatient E&M: 13229 Subs Hosp L2
--- NOTE | 2021-06-17 11:09 | CASEMGMT ---
Social Work Note SW in to speak with pt and check in with pt since pt has been at [facility] for 12 days. SW introduced self and role at [facility]. Pt is alert and orientated, on the phone with someone when this worker entered. Pt states that he is doing ok, denied any issues or concerns at this time. Pt states that he has support and people that he can talk to. Sofia Eddy EMBOSSER OPERATOR, WEIGHBRIDGE OPERATOR
--- NOTE | 2021-06-17 14:29 | PN.HOSP_ITS ---
Subjective Subjective Breathing well. Down to 8l. Objective Data Objective Data Vital Signs: Vital Signs Temp Pulse Resp BP Pulse Ox 36.4 C L 65 18 91/57 L 92 06/17/21 11:10 06/17/21 11:10 06/17/21 11:10 06/17/21 11:10 06/17/21 11:10 Oxygen Flow Rate (L/min) 8 Oxygen Delivery Method High Flow Weight: 92.533 kg Body Mass Index (BMI) 31.9 Intake & Output: Intake and Output for Last 24 Hours 06/15/21 06/16/21 06/17/21 23:59 23:59 23:59 Intake Total 1730 / 1730 350 / 350 700 / 700 Output Total 2350 / 2350 1825 / 1825 Balance -620 / -620 -1475 / -1475 700 / 700 Medical Nutrition Assessment Dietitian: Malnutrition Criteria Met Start: 06/11/21 15:47 Freq: Status: Active Protocol: Document 06/16/21 16:01 (Rec: 06/16/21 16:01 [id number]) Nutrition Malnutrition Evidence of Malnutrition Exists Yes Malnutrition (severe): Acute Illness/Injury Evidenced By Suboptimal Energy Intake ( Severe),Weight Loss (Severe) Clinical Problem Altered Nutrient-Related Laboratory Values Status Inactive Problem Acute Disease or Injury Related Malnutrition Etiology severe, acute malnutrition related to inadequate energy intake w/ increased nutrient needs d/t acute illness Signs/Symptoms as evidenced by 7.257kg/7.3% wt loss in past 2 weeks and estimated PO intake meeting < 50% greater than 5 days. Status Active Problem Recommendation Dietitian Recommendations/Changes Continue Regular diet and 4oz ensure enlive w/ meals for increased nutrition if consumed. Lab / Micro Data Result Diagrams: 06/17/21 06:56 06/17/21 06:56 Labs: Laboratory Results - last 24 hr 06/14/21 05:36: Diff Path Review Reviewed 06/15/21 06:15: Diff Path Review Reviewed 06/17/21 06:56: WBC 15.9 H, RBC 4.59 L, Hgb 14.2, Hct 42.0, MCV 91.5, MCH 30.9, MCHC 33.8, RDW Std Deviation 43.3, RDW Coeff of Moshe 13.0, Plt Count 391, MPV 11.0, Immature Gran % (Auto) 3.100 H, Neut % (Auto) 64.1, Lymph % (Auto) 24.7, [place] % (Auto) 7.1, Eos % (Auto) 0.6, Baso % (Auto) 0.4, Absolute Neuts (auto) 10.2 H, Absolute Lymphs (auto) 3.94, Nucleated RBC % 0 06/17/21 06:56: Sodium 137, Potassium 4.6, Chloride 100, Carbon Dioxide 29.0, Anion Gap 8, BUN 25 H, Creatinine 1.06, Estim Creat Clear Calc 77.08, Est GFR (MDRD) Af Amer 94, Est GFR (MDRD) Non-Af 78, BUN/Creatinine Ratio 23.6 H, Glucose 109 H, Calcium 8.9, Total Bilirubin 0.20, AST 37, ALT 134 H, Alkaline Phosphatase 75, Total Protein 7.1, Albumin 2.5 L, Globulin 4.6 H, Albumin/Globulin Ratio 0.5 L Micro: Microbiology 06/08/21 20:14 Sputum, Expectorated/Coughed Gram Stain - Final 06/08/21 20:14 Sputum, Expectorated/Coughed Respiratory Culture - Final Mixed normal respiratory mame. No Streptococcus pneumoniae, beta-hemolytic Streptococcus or Staphylococcus aureus isolated. 06/08/21 11:00 Urine, Clean Catch Streptococcus pneumoniae Antigen (M - Final 06/08/21 11:00 Urine, Clean Catch Legionella Antigen - Final Physical Exam Const alert Resp normal respiratory effort, no retractions and no use of accessory muscles Cardio regular rate, regular rhythm, S1 normal heart sound and S2 normal heart sound Assessment & Plan Assessment/Plan (1) Acute respiratory failure with hypoxia: (2) Pneumonia due to 2019-nCoV: (3) Acute kidney injury: PLAN: 1. acute respiratory failure imroved 2/2 COVID 19 on 8 liters encouraged IS and flutter valve wean oxygen as able furosemide challenge check bacterial pneumonia work up furosemide challenge infectious work up negative DC CTX (received 8-days) 2. Acute COVID 19 unvaccinated. onset 05/24, quarantine through 06/13 on dexamethasone out of the window for remdesivir 3. Acute kidney injury resolved monitor avoid nephrotoxic agents. 4. VTE prophylaxis: LMWH Charges/Coding Visit Charges Inpatient E&M: 17894 Subs Hosp L2
[2021-06-18] VITALS (9 sets, daily range): BP systolic 102–125; BP diastolic 63–83; PULSE 62–89; RESP 18–22; TEMP 36.6–36.7; O2SAT 89–98
[2021-06-18 06:11] LABS: Absolute Lymphocyte Count 3.57 X10^3/uL (0.83-4.51); Absolute Neutrophil Count 8.9 X10^3/uL (2.0-7.7); Basophil# 0.08 X10^3/uL; Basophil% 0.6 % (0-1); Eosinophil# 0.05 X10^3/uL; Eosinophils% 0.4 % (0-5); Hematocrit 39.2 % (40-54); Hemoglobin 13.1 g/dL (13.0-16.5); Lymphocyte # 3.57 X10^3/ul (0.83-4.51); Mean Corp Hgb Conc 33.4 g/dL (32-36); Mean Corpuscular Hgb 30.8 pg (27.0-32.0); Mean Platelet Vol. 11.1 fl (6.2-12.0); Monocyte# 1.13 X10^3/uL; Monocyte% 7.9 % (0-10); NRBC Flagged by Analyzer 0 % (0-5); Neutrophil # 8.88 X10^3/uL (2.7-7.7); Neutrophil % 62.2 % (47-70); Platelet Count 346 K/mm3 (150-450); RBC Distribution Width CV 12.9 % (11.6-14.6); RBC Distribution Width SD 42.9 fl (35.1-43.9); Red Blood Count 4.26 M/mm3 (4.6-6.2); White Blood Count 14.3 K/mm3 (4.4-11.0)
[2021-06-18 06:48] LABS: ALB/GLOB Ratio 0.6 RATIO (0.9-2.4); AST(SGOT) 39 U/L (15-37); Alanine Aminotransfer ALT/SGPT 135 U/L (16-61); Albumin, Serum 2.4 g/dL (3.2-5.0); Alkaline Phosphatase 71 U/L (45-117); Anion Gap 4 (5-15); BUN 19 mg/dL (7-18); BUN/Creat Ratio 17.4 RATIO (10-20); Chloride 102 mmol/L (98-107); Creatinine, Serum 1.09 mg/dL (0.70-1.30); EST Glomerular Filtration Rate 76 mL/min (>60); Est Glom Filt Rate - Afr Amer 91 mL/min (>60); Estimated Creatinine Clearance 74.96 ml/min; Globulin 4.2 g/dL (2.2-4.2); Glucose 97 mg/dL (74-106); Potassium 4.7 mmol/L (3.5-5.1); Protein, Total 6.6 g/dL (6.4-8.2); Sodium Level 137 mmol/L (136-145)
[2021-06-18] MEDS: Allopurinol 100 MG Tablet PO ×2 (08:13→21:50)
[2021-06-18] MEDS: Enoxaparin 30 MG/0.3 ML Syringe SC ×2 (08:14→21:51)
--- NOTE | 2021-06-18 09:46 | PN.CC_ITS ---
Assessment & Plan Assessment/Plan (1) Acute respiratory failure with hypoxia: (2) COVID-19: PLAN: RECOMMENDATIONS: 1. Wean supplemental oxygen to maintain saturations at or above 90%. 2. Continue empiric antimicrobials to complete 7-day treatment course. 3. Completed Decadron therapy 4. Continue prophylactic Lovenox. 5. Awake prone positioning was encouraged. 6. Encourage incentive spirometer use and mobilize patient as tolerated. 7. Challenge with diuretics 8. Walking oximetry prior to discharge. Walk today. IMPRESSIONS: 1. Acute hypoxemic respiratory failure secondary to COVID-19 pneumonia The patient was initially admitted to the hospital on June 06 after he was referred for monoclonal antibody infusion, but was subsequently found to be hypoxemic. The patient was not felt to be a candidate for remdesivir or baricitinib. The patient completed a 10-day course of Decadron. CTA was negative for PE. Therefore, the patient will be continued on prophylactic Lovenox. Continue to wean supplemental oxygen for saturations greater than 90%. Diuretics can be utilized as needed to maintain euvolemic state. Agree with Lasix today. Anticipate discharge when patient can tolerate ambulation on 6 L or less. Will check walking oximetry today to see how patient responds. Once patient able to ambulate on 6 L or less, anticipate follow-up in 4 to 6 weeks in our office This note was generated with [employer] dictation software. It may contain incorrect words, spelling, and punctuation that were not noted in checking the note before signing. Subjective Subjective Patient did okay overnight. No acute issues were reported. Patient overall feels subjectively slightly improved compared to yesterday. Patient still has a cough. No chest pain is reported. Objective Data Objective Data Vital Signs: Vital Signs Temp Pulse Resp BP Pulse Ox 36.6 C 89 20 H 107/83 H 89 06/18/21 08:10 06/18/21 08:10 06/18/21 08:10 06/18/21 08:10 06/18/21 08:16 Oxygen Flow Rate (L/min) 6 Oxygen Delivery Method High Flow Weight: 92.533 kg Body Mass Index (BMI) 31.9 Intake & Output: Intake and Output for Last 24 Hours 06/16/21 06/17/21 06/18/21 23:59 23:59 23:59 Intake Total 350 / 350 700 / 700 1300 / 1300 Output Total 1825 / 1825 400 / 400 Balance -1475 / -1475 700 / 700 900 / 900 Medical Nutrition Assessment Dietitian: Malnutrition Criteria Met Start: 06/11/21 15:47 Freq: Status: Active Protocol: Document 06/16/21 16:01 (Rec: 06/16/21 16:01 [id number]) Nutrition Malnutrition Evidence of Malnutrition Exists Yes Malnutrition (severe): Acute Illness/Injury Evidenced By Suboptimal Energy Intake ( Severe),Weight Loss (Severe) Clinical Problem Altered Nutrient-Related Laboratory Values Status Inactive Problem Acute Disease or Injury Related Malnutrition Etiology severe, acute malnutrition related to inadequate energy intake w/ increased nutrient needs d/t acute illness Signs/Symptoms as evidenced by 7.257kg/7.3% wt loss in past 2 weeks and estimated PO intake meeting < 50% greater than 5 days. Status Active Problem Recommendation Dietitian Recommendations/Changes Continue Regular diet and 4oz ensure enlive w/ meals for increased nutrition if consumed. Lab / Micro Data Result Diagrams: 06/18/21 05:55 06/18/21 05:55 Labs: Laboratory Results - last 24 hr 06/15/21 06:15: Diff Path Review Reviewed 06/18/21 05:55: WBC 14.3 H, RBC 4.26 L, Hgb 13.1, Hct 39.2 L, MCV 92.0, MCH 30.8, MCHC 33.4, RDW Std Deviation 42.9, RDW Coeff of Moshe 12.9, Plt Count 346, MPV 11.1, Immature Gran % (Auto) 3.900 H, Neut % (Auto) 62.2, Lymph % (Auto) 25.0, [place] % (Auto) 7.9, Eos % (Auto) 0.4, Baso % (Auto) 0.6, Absolute Neuts (auto) 8.9 H, Absolute Lymphs (auto) 3.57, Nucleated RBC % 0 06/18/21 05:55: Sodium 137, Potassium 4.7, Chloride 102, Carbon Dioxide 31.0, Anion Gap 4 L, BUN 19 H, Creatinine 1.09, Estim Creat Clear Calc 74.96, Est GFR (MDRD) Af Amer 91, Est GFR (MDRD) Non-Af 76, BUN/Creatinine Ratio 17.4, Glucose 97, Calcium 9.0, Total Bilirubin 0.30, AST 39 H, ALT 135 H, Alkaline Phosphatase 71, Total Protein 6.6, Albumin 2.4 L, Globulin 4.2, Albumin/Globulin Ratio 0.6 L Micro: Microbiology 06/08/21 20:14 Sputum, Expectorated/Coughed Gram Stain - Final 06/08/21 20:14 Sputum, Expectorated/Coughed Respiratory Culture - Final Mixed normal respiratory mame. No Streptococcus pneumoniae, beta-hemolytic Streptococcus or Staphylococcus aureus isolated. 06/08/21 11:00 Urine, Clean Catch Streptococcus pneumoniae Antigen (M - Final 06/08/21 11:00 Urine, Clean Catch Legionella Antigen - Final Physical Exam Const alert and oriented x3 General Appearance: cooperative Nutritional Appearance: obese HEENT normocephalic, head/scalp atraumatic and moist oral mucous membranes Eyes PERRL, EOMs intact bilaterally and conjunctivae normal Neck supple General: trachea midline Chest inspection of chest normal Chest: symmetrical chest wall rise; Negative for crepitus Resp normal respiratory effort Auscultation: diminished lung sounds; Negative for rales, rhonchi or wheezes Cardio S1 normal heart sound, S2 normal heart sound, no murmurs, no rub and no gallops Rate: regular rate GI normal to inspection, nondistended, normoactive bowel sounds Extremity no clubbing, cyanosis or edema Skin no rashes or lesions noted Neuro CN's II-XII intact bilaterally, moves all extremities and no focal motor deficits Psych cooperative and affect normal Charges/Coding Visit Charges Inpatient E&M: 76001 Subs Hosp L2
[2021-06-18] MEDS: 0.9% Saline Lock 10 ML Syringe IV (10:36)
[2021-06-18] MEDS: Furosemide 40 MG/4 ML Vial IV (10:36)
--- NOTE | 2021-06-18 13:49 | PN.HOSP_ITS ---
Subjective Subjective Breathing better. Still hypoxic when decreased to 6 liters. Objective Data Objective Data Vital Signs: Vital Signs Temp Pulse Resp BP Pulse Ox 36.6 C 89 20 H 107/83 H 93 06/18/21 08:10 06/18/21 08:10 06/18/21 08:10 06/18/21 08:10 06/18/21 12:22 Oxygen Flow Rate (L/min) 7 Oxygen Delivery Method High Flow Weight: 92.533 kg Body Mass Index (BMI) 31.9 Intake & Output: Intake and Output for Last 24 Hours 06/16/21 06/17/21 06/18/21 23:59 23:59 23:59 Intake Total 350 / 350 700 / 700 1300 / 1300 Output Total 1825 / 1825 400 / 400 Balance -1475 / -1475 700 / 700 900 / 900 Medical Nutrition Assessment Dietitian: Malnutrition Criteria Met Start: 06/11/21 15:47 Freq: Status: Active Protocol: Document 06/16/21 16:01 (Rec: 06/16/21 16:01 [id number]) Nutrition Malnutrition Evidence of Malnutrition Exists Yes Malnutrition (severe): Acute Illness/Injury Evidenced By Suboptimal Energy Intake ( Severe),Weight Loss (Severe) Clinical Problem Altered Nutrient-Related Laboratory Values Status Inactive Problem Acute Disease or Injury Related Malnutrition Etiology severe, acute malnutrition related to inadequate energy intake w/ increased nutrient needs d/t acute illness Signs/Symptoms as evidenced by 7.257kg/7.3% wt loss in past 2 weeks and estimated PO intake meeting < 50% greater than 5 days. Status Active Problem Recommendation Dietitian Recommendations/Changes Continue Regular diet and 4oz ensure enlive w/ meals for increased nutrition if consumed. Lab / Micro Data Result Diagrams: 06/18/21 05:55 06/18/21 05:55 Labs: Laboratory Results - last 24 hr 06/18/21 05:55: WBC 14.3 H, RBC 4.26 L, Hgb 13.1, Hct 39.2 L, MCV 92.0, MCH 30 .8, MCHC 33.4, RDW Std Deviation 42.9, RDW Coeff of Moshe 12.9, Plt Count 346, MPV 11.1, Immature Gran % (Auto) 3.900 H, Neut % (Auto) 62.2, Lymph % (Auto) 25.0, [place] % (Auto) 7.9, Eos % (Auto) 0.4, Baso % (Auto) 0.6, Absolute Neuts (auto) 8.9 H, Absolute Lymphs (auto) 3.57, Nucleated RBC % 0 06/18/21 05:55: Sodium 137, Potassium 4.7, Chloride 102, Carbon Dioxide 31.0, Anion Gap 4 L, BUN 19 H, Creatinine 1.09, Estim Creat Clear Calc 74.96, Est GFR (MDRD) Af Amer 91, Est GFR (MDRD) Non-Af 76, BUN/Creatinine Ratio 17.4, Glucose 97, Calcium 9.0, Total Bilirubin 0.30, AST 39 H, ALT 135 H, Alkaline Phosphatase 71, Total Protein 6.6, Albumin 2.4 L, Globulin 4.2, Albumin/Globulin Ratio 0.6 L Micro: Microbiology 06/08/21 20:14 Sputum, Expectorated/Coughed Gram Stain - Final 06/08/21 20:14 Sputum, Expectorated/Coughed Respiratory Culture - Final Mixed normal respiratory mame. No Streptococcus pneumoniae, beta-hemolytic Streptococcus or Staphylococcus aureus isolated. 06/08/21 11:00 Urine, Clean Catch Streptococcus pneumoniae Antigen (M - Final 06/08/21 11:00 Urine, Clean Catch Legionella Antigen - Final Physical Exam Const alert Resp normal respiratory effort, no retractions, no use of accessory muscles and clear to auscultation bilaterally Cardio regular rate, regular rhythm, S1 normal heart sound and S2 normal heart sound GI normal to inspection, nondistended, normoactive bowel sounds, soft to palpation, non-tender and non-distended Assessment & Plan Assessment/Plan (1) Acute respiratory failure with hypoxia: (2) Pneumonia due to 2019-nCoV: (3) Acute kidney injury: PLAN: 1. acute respiratory failure imroved 2/2 COVID 19 on 8 liters encouraged IS and flutter valve wean oxygen as able furosemide challenge check bacterial pneumonia work up furosemide challenge infectious work up negative DC CTX (received 8-days) still not ready for discharge. Hopefully, in 1-2 days. 2. Acute COVID 19 unvaccinated. onset 05/24, quarantine through 06/13 on dexamethasone out of the window for remdesivir 3. Acute kidney injury resolved monitor avoid nephrotoxic agents. 4. VTE prophylaxis: LMWH Charges/Coding Visit Charges Inpatient E&M: 83139 Subs Hosp L2
[2021-06-19 02:00] VITALS: BP 112/78; PULSE 74; RESP 18; TEMP 36.6; O2SAT 95
[2021-06-19 05:53] LABS: Absolute Lymphocyte Count 3.55 X10^3/uL (0.83-4.51); Absolute Neutrophil Count 8.4 X10^3/uL (2.0-7.7); Basophil# 0.08 X10^3/uL; Basophil% 0.6 % (0-1); Eosinophil# 0.07 X10^3/uL; Eosinophils% 0.5 % (0-5); Hematocrit 42.2 % (40-54); Hemoglobin 13.8 g/dL (13.0-16.5); Lymphocyte # 3.55 X10^3/ul (0.83-4.51); Lymphocyte % 26.4 % (19-41); Mean Corp Hgb Conc 32.7 g/dL (32-36); Mean Corpuscular Hgb 30.1 pg (27.0-32.0); Mean Corpuscular Volume 92.1 fL (80-94); Monocyte# 0.98 X10^3/uL; Monocyte% 7.3 % (0-10); NRBC Flagged by Analyzer 0 % (0-5); Neutrophil % 62.3 % (47-70); Platelet Count 334 K/mm3 (150-450); RBC Distribution Width CV 12.8 % (11.6-14.6); RBC Distribution Width SD 42.9 fl (35.1-43.9); Red Blood Count 4.58 M/mm3 (4.6-6.2); White Blood Count 13.5 K/mm3 (4.4-11.0)
[2021-06-19 06:37] LABS: ALB/GLOB Ratio 0.7 RATIO (0.9-2.4); AST(SGOT) 30 U/L (15-37); Alanine Aminotransfer ALT/SGPT 125 U/L (16-61); Albumin, Serum 2.8 g/dL (3.2-5.0); Alkaline Phosphatase 79 U/L (45-117); Anion Gap 7 (5-15); BUN 23 mg/dL (7-18); BUN/Creat Ratio 22.3 RATIO (10-20); Calcium,Total 9.2 mg/dL (8.5-10.1); Chloride 100 mmol/L (98-107); Creatinine, Serum 1.03 mg/dL (0.70-1.30); EST Glomerular Filtration Rate 81 mL/min (>60); Est Glom Filt Rate - Afr Amer 98 mL/min (>60); Estimated Creatinine Clearance 79.33 ml/min; Globulin 4.3 g/dL (2.2-4.2); Glucose 108 mg/dL (74-106); Potassium 4.1 mmol/L (3.5-5.1); Protein, Total 7.1 g/dL (6.4-8.2); Sodium Level 137 mmol/L (136-145)
[2021-06-19 08:31] VITALS: BP 112/97; PULSE 67; RESP 20; TEMP 36.7; O2SAT 91
[2021-06-19] MEDS: Furosemide 40 MG/4 ML Vial IV (08:54)
[2021-06-19] MEDS: Allopurinol 100 MG Tablet PO (08:56)
[2021-06-19] MEDS: Enoxaparin 30 MG/0.3 ML Syringe SC (08:56)
[2021-06-19 09:18] VITALS: O2SAT 91
--- NOTE | 2021-06-19 10:12 | PCM.PN.INT ---
Assessment & Plan Assessment/Plan (1) Acute respiratory failure with hypoxia: (2) COVID-19: PLAN: RECOMMENDATIONS: 1. Wean supplemental oxygen to maintain saturations at or above 90%. 2. Completed 7-day course of empiric antimicrobials. 3. Completed Decadron therapy 4. Continue prophylactic Lovenox. 5. Awake prone positioning was encouraged. 6. Encourage incentive spirometer use and mobilize patient as tolerated. 7. Challenge with diuretics 8. Walking oximetry prior to discharge. Walk today. 9. Hemodynamically stable for multiple days on nasal cannula oxygen. Will sign off from a pulmonary perspective IMPRESSIONS: 1. Acute hypoxemic respiratory failure secondary to COVID-19 pneumonia The patient was initially admitted to the hospital on June 06 after he was referred for monoclonal antibody infusion, but was subsequently found to be hypoxemic. The patient was not felt to be a candidate for remdesivir or baricitinib. The patient completed a 10-day course of Decadron. CTA was negative for PE. Therefore, the patient will be continued on prophylactic Lovenox. Continue to wean supplemental oxygen for saturations greater than 90%. Diuretics can be utilized as needed to maintain euvolemic state. Agree with Lasix today. Anticipate discharge when patient can tolerate ambulation on 6 L or less. Will check walking oximetry today to see how patient responds. Once patient able to ambulate on 6 L or less, anticipate follow-up in 4 to 6 weeks in our office for reevaluation. Given relative stability in nasal cannula, will sign off from a pulmonary perspective Subjective Subjective Patient did okay overnight. Patient subjectively feels improved compared to previous. No chest pain has been reported. Patient does continue to have a cough. No change in sputum volume or color. Patient subjectively feels less shortness of breath with exertion Objective Data Objective Data Vital Signs: Vital Signs Temp Pulse Resp BP Pulse Ox 36.7 C 67 20 H 112/97 H 91 06/19/21 08:31 06/19/21 08:31 06/19/21 08:31 06/19/21 08:31 06/19/21 09:18 Oxygen Flow Rate (L/min) 6 Oxygen Delivery Method Nasal Cannula Weight: 92.533 kg Body Mass Index (BMI) 31.9 Intake & Output: Intake and Output for Last 24 Hours 06/17/21 06/18/21 06/19/21 23:59 23:59 23:59 Intake Total 700 / 700 1300 / 1300 Output Total 400 / 400 Balance 700 / 700 900 / 900 Medical Nutrition Assessment Dietitian: Malnutrition Criteria Met Start: 06/11/21 15:47 Freq: Status: Active Protocol: Document 06/16/21 16:01 (Rec: 06/16/21 16:01 [id number]) Nutrition Malnutrition Evidence of Malnutrition Exists Yes Malnutrition (severe): Acute Illness/Injury Evidenced By Suboptimal Energy Intake ( Severe),Weight Loss (Severe) Clinical Problem Altered Nutrient-Related Laboratory Values Status Inactive Problem Acute Disease or Injury Related Malnutrition Etiology severe, acute malnutrition related to inadequate energy intake w/ increased nutrient needs d/t acute illness Signs/Symptoms as evidenced by 7.257kg/7.3% wt loss in past 2 weeks and estimated PO intake meeting < 50% greater than 5 days. Status Active Problem Recommendation Dietitian Recommendations/Changes Continue Regular diet and 4oz ensure enlive w/ meals for increased nutrition if consumed. Lab / Micro Data Result Diagrams: 06/19/21 05:14 06/19/21 05:14 Labs: Laboratory Results - last 24 hr 06/19/21 05:14: WBC 13.5 H, RBC 4.58 L, Hgb 13.8, Hct 42.2, MCV 92.1, MCH 30.1, MCHC 32.7, RDW Std Deviation 42.9, RDW Coeff of Moshe 12.8, Plt Count 334, MPV 11.0, Immature Gran % (Auto) 2.900 H, Neut % (Auto) 62.3, Lymph % (Auto) 26.4, [place] % (Auto) 7.3, Eos % (Auto) 0.5, Baso % (Auto) 0.6, Absolute Neuts (auto) 8.4 H, Absolute Lymphs (auto) 3.55, Nucleated RBC % 0 06/19/21 05:14: Sodium 137, Potassium 4.1, Chloride 100, Carbon Dioxide 30.0, Anion Gap 7, BUN 23 H, Creatinine 1.03, Estim Creat Clear Calc 79.33, Est GFR (MDRD) Af Amer 98, Est GFR (MDRD) Non-Af 81, BUN/Creatinine Ratio 22.3 H, Glucose 108 H, Calcium 9.2, Total Bilirubin 0.40, AST 30, ALT 125 H, Alkaline Phosphatase 79, Total Protein 7.1, Albumin 2.8 L, Globulin 4.3 H, Albumin/Globulin Ratio 0.7 L Micro: Microbiology 06/08/21 20:14 Sputum, Expectorated/Coughed Gram Stain - Final 06/08/21 20:14 Sputum, Expectorated/Coughed Respiratory Culture - Final Mixed normal respiratory mame. No Streptococcus pneumoniae, beta-hemolytic Streptococcus or Staphylococcus aureus isolated. 06/08/21 11:00 Urine, Clean Catch Streptococcus pneumoniae Antigen (M - Final 06/08/21 11:00 Urine, Clean Catch Legionella Antigen - Final Physical Exam Const alert and oriented x3 General Appearance: cooperative Nutritional Appearance: obese HEENT normocephalic, head/scalp atraumatic and moist oral mucous membranes Eyes PERRL, EOMs intact bilaterally and conjunctivae normal Neck supple General: trachea midline Chest inspection of chest normal Chest: symmetrical chest wall rise; Negative for crepitus Resp normal respiratory effort Auscultation: diminished lung sounds; Negative for rales, rhonchi or wheezes Cardio S1 normal heart sound, S2 normal heart sound, no murmurs, no rub and no gallops Rate: regular rate GI normal to inspection, nondistended, normoactive bowel sounds Extremity no clubbing, cyanosis or edema Skin no rashes or lesions noted Neuro CN's II-XII intact bilaterally, moves all extremities and no focal motor deficits Psych cooperative and affect normal Charges/Coding Visit Charges Inpatient E&M: 14117 Subs Hosp L2
[2021-06-19 11:48] VITALS: O2SAT 86; O2SAT 87; O2SAT 88; O2SAT 89; O2SAT 95
--- NOTE | 2021-06-19 12:17 | PCM.DC ---
Discharge Instructions Diet Discharge Diet: No restrictions Activity Discharge Activity: Return to Normal Activity Additional Activity Instructions:: Oxygen 2 l/m with rest and 7 l/m with activity. Dressing / Incision Call your doctor if you observe: Fever of 101 or Higher and Shortness of breath Follow Up Care Test Results: Test results from this visit will be discussed in further detail at your follow-up appointment, if applicable. Discharge Plan Admission Admit Date/Time: 06/05/21 21:59 Primary Reason for Your Visit: COVID 19 Attending Provider: Luis A Lopez Primary Care Provider: Yunior Higgins NP Consulting Providers: Daniel Kothari ; René Lovett ; Grayson Jean ; Caryl Heredia NP Discharge Orders/Prescriptions Prescriptions: Continued allopurinol 100 mg tablet 300 mg PO BID RF: 0 Discontinued sildenafil 50 mg tablet 50 mg PO PRN PRN (Reason: Erectile Dysfunction) RF: 0 diltiazem HCl 120 MG capsule,extended release 24hr 120 mg PO DAILY RF: 0 Referrals / Follow Up: Yunior Higgins NP, [facility] [Primary Care Provider] - Within 1 Week Disposition Disposition (needs filled in before D/C Order can be placed): Home, Self Care
--- NOTE | 2021-06-19 12:19 | DS.PCM_ITS ---
Providers Date of Admission: 06/05/21 Primary Care Physician: JEFFERY Steve Consultations 06/09/21 17:45 Consult: Infectious Disease Routine Consulting Provider: Daniel Kothari Reason for Consult: for bariticinib. On airvo, covid 19 EMERGENT Consult: No Notified: Yes Date Notified: 06/10/21 Time Notified: 07:51 Method of Notification: Text 06/10/21 09:13 Consult: Hydropulper Operator / Pulmonary Medicine Routine Consulting Provider: Pulmonary Medicine [facility] Reason for Consult: Severe hypoxia, 80 fio2, airvo EMERGENT Consult: No Notified: Yes Date Notified: 06/10/21 Time Notified: 09:14 Method of Notification: Verbal Reason For Visit: ACUTE HYPOXEMIA RESPIRATORY FAILURE Diagnosis Discharge Diagnosis (1) Acute respiratory failure with hypoxia: Status: Acute Code(s): J96.01 - Acute respiratory failure with hypoxia (2) COVID-19: Status: Acute Code(s): U07.1 - COVID-19 Medications at Discharge Home Medications allopurinol 100 mg tablet 300 mg PO BID 09/11/19 Hospital Course Operations None Procedures None Summary of Care Provided Minutes Spent on Discharge: 32 Hospital Course: 1. acute respiratory failure imroved 2/2 COVID 19 on 8 liters encouraged IS and flutter valve wean oxygen as able furosemide challenge bacterial pneumonia work up negative infectious work up negative DC CTX (received 8-days) Patient require 2 L of oxygen with rest and 7 L with activity. 2. Acute COVID 19 unvaccinated. onset 05/24, quarantine completed on dexamethasone out of the window for remdesivir Patient advised to get the COVID-19 vaccine in a couple weeks. Patient voluntarily asked about getting the vaccine. 3. Acute kidney injury resolved monitor Physical Exam Const alert Resp normal respiratory effort, no retractions, no use of accessory muscles and clear to auscultation bilaterally Cardio regular rate, regular rhythm, S1 normal heart sound and S2 normal heart sound GI normal to inspection, nondistended, normoactive bowel sounds, soft to palpation, non-tender and non-distended Extremity normal to inspection Medical Records Data Medical Nutrition Assessment Dietitian: Malnutrition Criteria Met Start: 06/11/21 15:47 Freq: Status: Active Protocol: Document 06/16/21 16:01 (Rec: 06/16/21 16:01 [id number]) Nutrition Malnutrition Evidence of Malnutrition Exists Yes Malnutrition (severe): Acute Illness/Injury Evidenced By Suboptimal Energy Intake ( Severe),Weight Loss (Severe) Clinical Problem Altered Nutrient-Related Laboratory Values Status Inactive Problem Acute Disease or Injury Related Malnutrition Etiology severe, acute malnutrition related to inadequate energy intake w/ increased nutrient needs d/t acute illness Signs/Symptoms as evidenced by 7.257kg/7.3% wt loss in past 2 weeks and estimated PO intake meeting < 50% greater than 5 days. Status Active Problem Recommendation Dietitian Recommendations/Changes Continue Regular diet and 4oz ensure enlive w/ meals for increased nutrition if consumed. Weight / BMI Weight Weight: 92.533 kg Body Mass Index (BMI) 31.9 ABG / Lab / Microbiology Data Result Diagrams: 06/19/21 05:14 06/19/21 05:14 Laboratory: Laboratory Results - last 24 hr 06/19/21 05:14: WBC 13.5 H, RBC 4.58 L, Hgb 13.8, Hct 42.2, MCV 92.1, MCH 30.1, MCHC 32.7, RDW Std Deviation 42.9, RDW Coeff of Moshe 12.8, Plt Count 334, MPV 11.0, Immature Gran % (Auto) 2.900 H, Neut % (Auto) 62.3, Lymph % (Auto) 26.4, Boyle % (Auto) 7.3, Eos % (Auto) 0.5, Baso % (Auto) 0.6, Absolute Neuts (auto) 8.4 H, Absolute Lymphs (auto) 3.55, Nucleated RBC % 0 06/19/21 05:14: Sodium 137, Potassium 4.1, Chloride 100, Carbon Dioxide 30.0, Anion Gap 7, BUN 23 H, Creatinine 1.03, Estim Creat Clear Calc 79.33, Est GFR (MDRD) Af Amer 98, Est GFR (MDRD) Non-Af 81, BUN/Creatinine Ratio 22.3 H, Glucose 108 H, Calcium 9.2, Total Bilirubin 0.40, AST 30, ALT 125 H, Alkaline Phosphatase 79, Total Protein 7.1, Albumin 2.8 L, Globulin 4.3 H, Albumin/Globulin Ratio 0.7 L Microbiology: Microbiology 06/08/21 20:14 Sputum, Expectorated/Coughed Gram Stain - Final 06/08/21 20:14 Sputum, Expectorated/Coughed Respiratory Culture - Final Mixed normal respiratory mame. No Streptococcus pneumoniae, beta-hemolytic Streptococcus or Staphylococcus aureus isolated. 06/08/21 11:00 Urine, Clean Catch Streptococcus pneumoniae Antigen (M - Final 06/08/21 11:00 Urine, Clean Catch Legionella Antigen - Final D/C Instructions Discharge Diet: No restrictions Additional Activity Instructions: Oxygen 2 l/m with rest and 7 l/m with activity. Call your doctor if you observe: Fever of 101 or Higher and Shortness of breath Meaningful Use Info Meaningful Use Diagnoses (Choose all that apply): None applicable Discharge Plan Admission Admit Date/Time: 06/05/21 21:59 Primary Reason for Your Visit: COVID 19 Attending Provider: Luis A Lopez Primary Care Provider: Yunior Higgins NP Consulting Providers: Daniel Kothari ; René Lovett ; Grayson Jean ; Caryl Heredia [employer]EL REPAIRER Discharge Orders/Prescriptions Prescriptions: Continued allopurinol 100 mg tablet 300 mg PO BID RF: 0 Discontinued sildenafil 50 mg tablet 50 mg PO PRN PRN (Reason: Erectile Dysfunction) RF: 0 diltiazem HCl 120 MG capsule,extended release 24hr 120 mg PO DAILY RF: 0 Referrals / Follow Up: Yunior Higgins [employer] E[employer]EL REPAIRER, [employer]EL REPAIRER-C [Primary Care Provider] - Within 1 Week Disposition Disposition (needs filled in before D/C Order can be placed): Home, Self Care Charges/Coding Visit Charges Inpatient E&M: 82194 Disch Hosp
--- NOTE | 2021-06-19 13:31 | CASEMGMT ---
Addendum entered by Angela Ford 06/19/21 16:34: [employer] worker director translation called in several times stating pt states he is not going to be dc'd. Made him aware that pt is dc'ing today. TC to pt room to make aware. He does not have anyone one at home so O2 can be set up until he gets there. [employer] aware that pt has not gone home yet. Original Note: Pt qualifies for home O2,noted [employer] to be closed today, referral called in to after hours phone number and faxed at this time.
[2021-06-19 18:12] VITALS: BP 127/87; PULSE 72; RESP 18; TEMP 36.5; O2SAT 96
--- NOTE | 2021-06-19 18:15 | NURSING ---
Pt educated that he needs to be on 2L of oxygen when resting and 7L when he is up ambulating. Education on how to increase oxygen and when. Pt has car here and wants to drive home. Only way he will get home b/c girlfriend does not drive at night. Dr. Lopez aware and okayed pt to drive home.
== END 2021-06-19 18:25 | disposition home or self-care (01) | DRG 137 ==
LOC: ED 22:00 → MS3 06-06 07:06
PROVIDERS: Internal Medicine; Admitting Provider Hospitalist; Emergency Provider Emergency Medicine; PCP Nurse Practitioner Primary Care
DX: U07.1 COVID-19 (principal); J12.82 Pneumonia due to coronavirus disease 2019; J96.01 Acute respiratory failure with hypoxia; E43 Unspecified severe protein-calorie malnutrition; N17.9 Acute kidney failure, unspecified; I10 Essential (primary) hypertension; M10.9 Gout, unspecified; M06.9 Rheumatoid arthritis, unspecified; K59.00 Constipation, unspecified; R00.1 Bradycardia, unspecified; E66.9 Obesity, unspecified; Z68.32 Body mass index [BMI] 32.0-32.9, adult; Z79.899 Other long term (current) drug therapy
CPT/HCPCS: 36415; 36600; 71045; 71275; 80048; 80053; 82550; 82803; 83605; 83880; 84145; 85025; 85379; 85610; 85730; 86140; 87070; 87205; 87449; 93005; 94003; 94660; 94667; 94668; 94762; 97110; 97116; 97161; 97166; 97530; 97803; 99251; 99285; J7030; Q0245; Q9967; A4216; G0463; J0610; J0696; J1940

== ENCOUNTER → 2021-10-21 | Outpatient (CLI) | payer MEDICAID, SELFPAY ==
--- NOTE | 2021-10-21 12:39 | PFTCOMP ---
COMPLETE PULMONARY FUNCTION TEST INTERPRETATION Brief HPI: Patient is a 51 year old Black male, currently under the care of Caryl Heredia, who presents to [facility] for complete pulmonary function tests secondary to diagnosis of dyspnea. Respiratory therapist reports good effort and reproducible results. Interpretation: Forced expiration spirometry shows no large airways obstructive ventilatory defect with an FEV1 of 87% predicted. There is no significant bronchodilator response by strict ATS criteria. Spirograms are of good quality and plateau normally. The respiratory flow volume loop shows a normal pattern. Lung volumes by body plethysmography show a decreased total lung capacity at 4.38 L, 75% predicted. All other lung volumes are reduced symmetrically. Diffusion capacity by carbon monoxide is decreased at 69% predicted. The airway resistance is normal. No previous pulmonary function tests were available for review. Impression: Mild restrictive ventilatory defect with a symmetric reduction diffusion capacity. No previous studies available for comparison.
== END | disposition home or self-care (01) ==
LOC: PSN 08:04
PROVIDERS: PCP Nurse Practitioner Primary Care; Referring Provider Nurse Practitioner Acute Care; Visit Provider Nurse Practitioner Acute Care
DX: R09.89 Other specified symptoms and signs involving the circulatory and respiratory systems (principal)
CPT/HCPCS: 94060; 94726; 94729